=== PATIENT | male | born 1950 | race Caucasian/White ===

== ENCOUNTER 2018-08-16 16:32 | Inpatient (IN) | payer MEDICARE ==
[~2018-08-16] VITALS: Ht 172.7 cm; Wt 102.1 kg
--- NOTE | 2018-08-16 16:50 | NUR ---
PT BIB RA6, NEAR SYNCOPE FROM MD OFFICE. C/O WEAKNESS & RECTAL BLEEDING, PT IS AAOX4, NOT IN RESPIRAOTRY DISTRESS, KEPT RESTED AND [id number], WILL CONTINUE TO MONITOR.
--- NOTE | 2018-08-16 16:50 | NUR ---
LABS DRAWNED AND SENT TO LAB.
[2018-08-16] MEDS ORDERED: IV NS 0.9% 1,000 ML BAG IV ONE ×2 (17:00→18:30)
[2018-08-16 17:13] LABS: HEMATOCRIT 35 % (39-51); HEMOGLOBIN 10.5 g/dL (13.5-17.5); LYMPHOCYTES # (AUTO) 0.7 /CMM (0.8-4.8); MEAN CORPUSCULAR HGB CONC 30 g/dl (31.0-36.0); MEAN CORPUSCULAR VOLUME 80 fL (80-96); MONOCYTES # (AUTO) 0.5 /CMM (0.1-1.30); MONOCYTES % (AUTO) 1.3 % (2.0-12.0); NEUTROPHILS # (AUTO) 33.4 /CMM (1.8-8.9); NEUTROPHILS % (AUTO) 96.7 % (43.0-81.0); PLATELET COUNT (AUTO) 215 /CMM (150-450); RED BLOOD CELL COUNT(AUTO) 4.32 MIL/uL (4.5-6.0)
[2018-08-16 17:28] LABS: CALCIUM, SERUM 7.4 mg/dL (8.5-10.1); CARBON DIOXIDE 17 mmol/L (21-32); CHLORIDE 105 mmol/L (98-107); CREATININE 1.7 mg/dL (0.6-1.3); GLUCOSE 160 mg/dL (74-106); POTASSIUM 4.6 mmol/L (3.5-5.1); SODIUM SERUM 139 mmol/L (136-145); UREA NITROGEN, BLOOD 29 mg/dL (7-18)
[2018-08-16 17:34] LABS: ALANINE AMINOTRANSFERASE 22 U/L (12-78); ALKALINE PHOSPHATASE 123 U/L (46-116); ASPARTATE AMINOTRANSFERASE 28 U/L (15-37); BILIRUBIN,DIRECT 0.2 mg/dL (0.0-0.2); BILIRUBIN,TOTAL 0.5 mg/dL (0.2-1.0); TOTAL PROTEIN, SERUM 4.6 g/dL (6.4-8.2)
--- NOTE | 2018-08-16 17:36 | NUR ---
PT IS WHEELED TO CT SCAN VIA [facility].
[2018-08-16 17:38] LABS: ALBUMIN 0.9 g/dL (3.4-5.0)
[2018-08-16 17:48] LABS: WHITE BLOOD COUNT (AUTO) 34.6 K/uL (4.3-11.0)
[2018-08-16 17:58] LABS: ABG BASE EXCESS -9.2 mmol/L; ABG OXYGEN SATURATION 91.7 % (92.0-98.5); ABG PCO2 23.4 mmHg (35.0-45.0); ABG PH 7.399 (7.350-7.450); ABG PO2 70.4 mmHg (75.0-100.0); AaDO2 51.3 mmHg; COHb 0.9 % (0.5-1.5); MetHb 0.3 % (0.0-1.5); O2Hb 90.6 % (94.0-97.0); SITE, ABG Right Radial; VENT MODE, BG ROOM AIR
[2018-08-16] MEDS ORDERED: VANCOMYCIN 1 GM in IV D5W 250 ML IV ONE (18:00)
[2018-08-16] MEDS ORDERED: PIPERACILLIN /TAZOBACTAM 3.375 G in IV D5W 50 ML IV ONE (18:00)
--- NOTE | 2018-08-16 18:00 | NUR ---
CALLED PT'S ONCOLOGIST DR. ANGELES TO SPEAK TO ER DOC. DR. ANGELES -
--- NOTE | 2018-08-16 18:10 | NUR ---
PT IS BACK FORM THE CT SCAN.
[2018-08-16 18:22] LABS: BAND % (MANUAL) 65 % (0.0-5.0); LYMPHOCYTES % (MANUAL) 4 % (16-48); MONOCYTES % (MANUAL) 2 % (0-11.0); NEUTROPHILS % (MANUAL) 29 (42-76)
--- NOTE | 2018-08-16 19:19 | NUR ---
SURGERY MD AT BEDSIDE FOR EVAL.
[2018-08-16] MEDS ORDERED: ANESTHESIA TRAY IN PYXIS 1 EA TRAY MC ONE (19:57)
[2018-08-16] MEDS ORDERED: BUPIVACAINE MPF 0.5% W/EPI INJ 30 ML VIAL ONE (19:57)
[2018-08-16] MEDS ORDERED: LIDOCAINE HCL/PF 1% 30 ML SDV ONE (19:57)
[2018-08-16] MEDS ORDERED: VASOPRESSIN INJ 20 UNIT/ML VIAL ONE (20:03)
[2018-08-16] MEDS ORDERED: ROCURONIUM BROMIDE 50 MG/5 ML ONE (20:03)
[2018-08-16] MEDS ORDERED: PROPOFOL 100 ML ONE (20:05)
[2018-08-16] MEDS ORDERED: ALBUMIN 5% 500 ML IV ONE (20:05)
[2018-08-16] MEDS ORDERED: ALBUMIN 25% 50 ML IV ONE (20:05)
--- NOTE | 2018-08-16 20:10 | NUR ---
WHEELED PT TO THE OR BY OR TECH.
--- NOTE | 2018-08-16 20:23 | NUR ---
REPORT GIVEN TO DEAN LYONS FOR ARTURO.
[2018-08-16] MEDS ORDERED: NOREPINEPHRINE 8 MG in IV D5W 500 ML IV PRN (20:30)
--- NOTE | 2018-08-16 20:55 | NUR ---
REPORT GIVEN TO DEAN SPICER FOR ARTURO.
[2018-08-16 21:55] LABS: ABG BASE EXCESS -12.9 mmol/L; ABG PH 7.197 (7.350-7.450); ABG PO2 143.8 mmHg (75.0-100.0); AaDO2 532.2 mmHg; COHb 0.8 % (0.5-1.5); MetHb 0.3 % (0.0-1.5); O2Hb 94.9 % (94.0-97.0); PEEP,BG 5 cm H2O; SITE, ABG A-Line; VT, ABG 500 mL
--- NOTE | 2018-08-16 22:42 | NUR ---
RT NOTE PT RCVD ORALLY INTUBATED FROM OR. 7.0 ETT SECURED AT 19CM @ LIP ON MECHANICAL VENT WITH CHARTED SETTINGS FROM DR SARMIENTO. SX DONE. VENT PLUGGED INTO RED OUTLET. VENT ALARMS ARE SET AND AUDIBLE. ETT CUFF CHECKED VIA MARBLE WORKER. AMBU BAG AT BEDSIDE. WILL CONTINUE TO MONITOR.
[2018-08-16 22:44] VITALS: BP 85/50
--- NOTE | 2018-08-16 22:45 | NUR ---
TEST TUBE MAKER NOTE RECEIVED PT INTUBATED FROM OR WITH ANESTHESIOLOGIST AND RECOVERY NURSE AT BEDSIDE. WITH ORDERS TO GIVE STAT 2 UNITS PRBC AND CXR NOW.
[2018-08-16 23:07] VITALS: BP 81/26
[2018-08-16 23:09] VITALS: BP 81/26
[2018-08-16 23:12] LABS: BASOPHILS % (AUTO) 0.1 % (0.0-2.0); HEMATOCRIT 23 % (39-51); LYMPHOCYTES # (AUTO) 0.9 /CMM (0.8-4.8); LYMPHOCYTES % (AUTO) 3.5 % (20.0-44.0); MEAN CORPUSCULAR HGB CONC 31 g/dl (31.0-36.0); MEAN CORPUSCULAR VOLUME 79 fL (80-96); MONOCYTES # (AUTO) 0.4 /CMM (0.1-1.30); MONOCYTES % (AUTO) 1.6 % (2.0-12.0); NEUTROPHILS # (AUTO) 23.9 /CMM (1.8-8.9); NEUTROPHILS % (AUTO) 94.8 % (43.0-81.0); PLATELET COUNT (AUTO) 131 /CMM (150-450); RED BLOOD CELL COUNT(AUTO) 2.89 MIL/uL (4.5-6.0); WHITE BLOOD COUNT (AUTO) 25.2 K/uL (4.3-11.0)
[2018-08-16 23:25] VITALS: BP_SYST 86; BP_SYST 87; BP_DIAS 52; BP_DIAS 58
[2018-08-16 23:27] LABS: CREATININE 1.2 mg/dL (0.6-1.3); POTASSIUM 3.6 mmol/L (3.5-5.1)
[2018-08-16] MEDS ORDERED: METRONIDAZOLE 500MG/ NS 100ML 500 MG in PREMIX 1 EA IV SCH (23:30)
[2018-08-16 23:40] VITALS: BP 82/50
[2018-08-16] MEDS: IV 1/2NS 1000 ML 1,000 ML IV PRN (23:45)
--- NOTE | 2018-08-16 23:45 | NUR ---
IT SECURITY CONSULTANT NOTE RECEIVED REPORT FROM LEARNING OPERATIONS SPECIALIST PAT FOR CONTINUITY OF CARE. PT RECEIVED INTUBATED WITH ETT 7.5 AND 22CM @ THE LIP. SEDATED. MECH VENT SETTINGS WELL TOLERATED AND SATURATING 100%. NGT R NARE WITH POSITIVE PLACEMENT AND WITH ORDERS TO START LOW INTERMITTENT SUCTION. LEFT IJ TLC WITH LEVO @11MCG/MIN, DIP @ 30MCG/MIN. A-LINE IN PLACE, CLEAN AND DRY. CINTHIA DRAIN IN PLACE WITH SANGUINOUS OUTPUT. [address] AND CLEAN[address] SURGICAL ABDOMINAL DRESSING IN PLACE, CLEAN AND DRY. POLLOCK CATHETER IN PLACE AND DRAINING SMALL AMOUNT OF SONIA URINE WITH SEDIMENT BY GRAVITY. MARGARETH HUGGER IN PLACE. NOTIFIED OF PT STATUS AND DR WILL REVIEW CHART AND PUT ORDERS IN. WILL CONTINUE TO MONITOR.
--- NOTE | 2018-08-16 23:46 | NUR ---
RT NOTE ABG RESULTS RELAYED TO CHARGE NURSE ALFONZO AND DEAN SPICER.
[2018-08-16] MEDS: PANTOPRAZOLE 40 MG VIAL IV SCH (23:48)
[2018-08-16] MEDS ORDERED: METRONIDAZOLE 500MG/ NS 100ML 100 ML IV ONE (23:54)
[2018-08-17] VITALS (130 sets, daily range): BP systolic 77–110; BP diastolic 25–74
[2018-08-17] MEDS ORDERED: ONDANSETRON HCL/PF 4 MG/2 ML VIAL IVP PRN
[2018-08-17] MEDS ORDERED: ACETAMINOPHEN 325 MG TABLET PO PRN
[2018-08-17] MEDS ORDERED: NORMAL SALINE FLUSH 10 ML SYR IV PRN
[2018-08-17] MEDS ORDERED: NOREPINEPHRINE 8 MG in IV D5W 500 ML IV PRN ×3 (00:30)
[2018-08-17] MEDS ORDERED: NOREPINEPHRINE 4 MG/4 ML AMPUL IV ONE ×2 (02:36→06:20)
[2018-08-17] MEDS: NOREPINEPHRINE 8 MG in IV D5W 500 ML IV PRN ×6 (02:44→09:15)
[2018-08-17] MEDS: PROPOFOL 100 ML IV PRN ×3 (02:46→13:39)
[2018-08-17] MEDS: NORMAL SALINE FLUSH 10 ML SYR IV SCH ×3 (04:33→21:39)
[2018-08-17 05:00] LABS: BASOPHILS % (AUTO) 0.1 % (0.0-2.0); HEMATOCRIT 36 % (39-51); HEMOGLOBIN 11.4 g/dL (13.5-17.5); LYMPHOCYTES # (AUTO) 1.5 /CMM (0.8-4.8); LYMPHOCYTES % (AUTO) 3.8 % (20.0-44.0); MEAN CORPUSCULAR HGB CONC 31 g/dl (31.0-36.0); MEAN CORPUSCULAR VOLUME 84 fL (80-96); MONOCYTES # (AUTO) 0.5 /CMM (0.1-1.30); MONOCYTES % (AUTO) 1.3 % (2.0-12.0); NEUTROPHILS # (AUTO) 36.6 /CMM (1.8-8.9); NEUTROPHILS % (AUTO) 94.8 % (43.0-81.0); PLATELET COUNT (AUTO) 170 /CMM (150-450); RED BLOOD CELL COUNT(AUTO) 4.33 MIL/uL (4.5-6.0)
[2018-08-17 05:11] LABS: CALCIUM, SERUM 6.3 mg/dL (8.5-10.1); CREATININE 1.2 mg/dL (0.6-1.3); POTASSIUM 4.2 mmol/L (3.5-5.1)
[2018-08-17 05:25] LABS: WHITE BLOOD COUNT (AUTO) 38.6 K/uL (4.3-11.0)
[2018-08-17] MEDS ORDERED: PHENYLEPHRINE 10 MG/ML VIAL ONE (05:32)
--- NOTE | 2018-08-17 05:50 | NUR ---
POTTERY DECORATION DESIGNER NOTE PT BP STILL LOW WITH LEVO. DR. WILLS ORDERED EVITA SECOND PRESSOR TO KEEP SBP ABOVE 90. ORDERS NOTED AND CARRIED OUT.
[2018-08-17 05:53] LABS: BAND % (MANUAL) 24 % (0.0-5.0); LYMPHOCYTES % (MANUAL) 2 % (16-48); NEUTROPHILS % (MANUAL) 74 (42-76)
--- NOTE | 2018-08-17 06:00 | NUR ---
MUSIC AUTOGRAPHER NOTE UNABLE TO ADMINISTER ANCEF 1GRAM IV D/T NO SUPPLY OF MEDICATION THROUGHOUT THE HOSPITAL. NURSE INDUSTRIAL PRODUCTION MANAGER AWARE AND SAID TO WAIT FOR PHARMACY TO DISPENSE.
[2018-08-17 06:04] LABS: ABG OXYGEN SATURATION 92.9 % (92.0-98.5); ABG PH 7.123 (7.350-7.450); ABG PO2 81.9 mmHg (75.0-100.0); AaDO2 577.1 mmHg; COHb 1.5 % (0.5-1.5); MetHb 0.2 % (0.0-1.5); O2Hb 91.3 % (94.0-97.0); PEEP,BG 5 cm H2O; SITE, ABG A-Line; VT, ABG 500 mL
[2018-08-17] MEDS: PHENYLEPHRINE 80 MG in IV D5W 250 ML IV PRN ×4 (06:31→20:50)
[2018-08-17] MEDS: BLOOD SUGAR DIAGNOSTIC 1 EACH STRIP IN SCH ×4 (06:32→23:29)
--- NOTE | 2018-08-17 07:25 | NUR ---
RT PATIENT REC'D ORALLY INTUBATED ON [facility] VENT WITH ORDERED SETTINGS. VENT ALARMS CHECKED + AUDIBLE. CUFF PRESSURE CHECKED ENGRAVER STEEL PLATE . B/S DIM COARSE. PATIENT SUCTIONED WITH SMALL AMT OF PALE SEMI-THICK SECRETIONS. PATIENT NON RESPONSIVE IN CRITICAL CONDITION. AMBU BAG AT [facility]. Addendum: 08/17/18 at 1308 by CHARU ZAMBRANO RT Amended: Links added.
[2018-08-17] MEDS: INSULIN REGULAR, HUMAN 100 UNIT/ML 3 ML VIAL SQ PRN (07:44)
--- NOTE | 2018-08-17 08:00 | NUR ---
PATIENT AROUSABLE TO TOUCH AND NAME WHEN PROPOFOL TITRATED DOWN TO 5MCG/MIN/KG ORIENTED TO ENVIRONMENT, SITUATION, AND PLACE.
[2018-08-17 08:30] LABS: ABG BASE EXCESS -12.8 mmol/L; ABG OXYGEN SATURATION 94.7 % (92.0-98.5); ABG PCO2 53.7 mmHg (35.0-45.0); ABG PH 7.106 (7.350-7.450); AaDO2 565.3 mmHg; COHb 1.1 % (0.5-1.5); MetHb 0.1 % (0.0-1.5); O2Hb 93.6 % (94.0-97.0); SITE, ABG A-Line
--- NOTE | 2018-08-17 08:30 | NUR ---
BAFFLE MOUNTER NOTE NO ACUTE DISTRESS NOTED ON VENTILATOR. PT REMAINS SEDATED AND INTUBATED. ALL NEEDS ATTENDED TO PROMPTLY. KEPT CLEAN AND DRY. SUCTIONED NEEDED. LEVO @ 40MCG/MIN AND EVITA @ 40MCG/MIN, 1/2NS @ 150ML/HR, DIP @ 10MCG/MIN. WILL ENDORSE TO NEXT SHIFT FOR CONTINUITY OF CARE.
[2018-08-17] MEDS: IV 1/2NS 1000 ML 1,000 ML IV PRN ×2 (08:31→16:26)
[2018-08-17] MEDS: CEFAZOLIN 1 GM in IV D5W 50 ML IV SCH ×3 (08:33→21:38)
[2018-08-17] MEDS ORDERED: PANTOPRAZOLE 40 MG VIAL IV SCH (09:00)
--- NOTE | 2018-08-17 09:55 | NUR ---
WOUND CARE CONSULT WOUND CARE RECEIVED CONSULT FOR LOW RISHI SCORE OF 12. PER WOOL MERCHANT, PATIENT NOT STABLE FOR TURNING OR REPOSITIONING FOR SKIN ASSESSMENT AT THIS TIME. PATIENT ON 2 PRESSORS FOR BP SUPPORT. ALL PRESSURE ULCER PREVENTION MEASURES NOTED TO BE IN PLACE AT THIS TIME. WILL SEE PATIENT PATIENT CONDITION PERMITS.
[2018-08-17] MEDS: METRONIDAZOLE 500MG/ NS 100ML 500 MG in PREMIX 1 EA IV SCH ×3 (09:57→21:38)
--- NOTE | 2018-08-17 10:27 | NUR ---
DR MORENO NOTIFIED OF CVP VALUE OF 5. PER DR MORENO, IV NS 500 BOLUS ONCE AND CONTINUE AT CURRENT RATE ACUTE MEDICAL RESTRAINTS, SOFT BILATERAL WRISTS PATIENT TRYING TO REMOVE TUBES PER DR MORENO REPEAT ABG 2 HOURS AFTER TV ADJUSTMENT VERBAL READBACK DONE
[2018-08-17] MEDS ORDERED: IV NS 0.9% 1,000 ML BAG IV ONE (10:30)
[2018-08-17 10:42] LABS: ABG BASE EXCESS -11.9 mmol/L; ABG OXYGEN SATURATION 96.3 % (92.0-98.5); ABG PCO2 42.7 mmHg (35.0-45.0); ABG PH 7.186 (7.350-7.450); ABG PO2 104.7 mmHg (75.0-100.0); AaDO2 565.6 mmHg; COHb 0.7 % (0.5-1.5); O2Hb 95.6 % (94.0-97.0); SITE, ABG A-Line
--- NOTE | 2018-08-17 10:53 | NUR ---
RT PER DR MORENO VT INCREASED TO 650. Addendum: 08/17/18 at 1054 by CHARU ZAMBRANO RT Amended: Links added.
--- NOTE | 2018-08-17 10:53 | NUR ---
DR MORENO NOTIFIED OF ABG RESULTS PER DR MORENO, TV TO 650 ABG AT 1300
[2018-08-17] MEDS: Z GUARD REMEDY 2 OZ OINT TP SCH (11:12)
--- NOTE | 2018-08-17 11:21 | NUR ---
iv 0.45 NS bolus of 500 ml per Md orders
[2018-08-17] MEDS ORDERED: IV 1/2NS 1000 ML 1,000 ML IV ONE (11:30)
--- NOTE | 2018-08-17 11:42 | NUR ---
unable to turn and reposition patient due to hemodynamic instability
[2018-08-17] MEDS ORDERED: IV 1/2NS 1000 ML 500 ML IV PRN (12:00)
[2018-08-17] MEDS ORDERED: IV NS 0.45% 500 ML IV ONE (12:00)
[2018-08-17] MEDS: NOREPINEPHRINE 16 MG in IV D5W 500 ML IV PRN ×2 (12:15→17:45)
--- NOTE | 2018-08-17 12:22 | NUR ---
urine output monitored Dr Carson notified of output values
[2018-08-17 13:44] LABS: ABG BASE EXCESS -10.9 mmol/L; ABG OXYGEN SATURATION 95.8 % (92.0-98.5); ABG PCO2 34.3 mmHg (35.0-45.0); ABG PH 7.263 (7.350-7.450); ABG PO2 91.5 mmHg (75.0-100.0); AaDO2 442.9 mmHg; MetHb 0.4 % (0.0-1.5); O2Hb 94.5 % (94.0-97.0); SITE, ABG A-Line
[2018-08-17] MEDS ORDERED: VASOPRESSIN INJ 50 UNIT in IV D5W 497.5 ML IV PRN (14:00)
--- NOTE | 2018-08-17 14:04 | NUR ---
DR MORENO NOTIFIED OF RECENT ABG PER HIS ORDERS, CONTINUE TO MONITOR PATIENT VASOPRESSIN PER PROTOCOL IF NEEDED VERBAL READBACK DONE
--- NOTE | 2018-08-17 15:01 | NUR ---
FLUSHES ADMINISTERED UNABLE TO SCAN
--- NOTE | 2018-08-17 19:30 | NUR ---
ENDORSED TO ELINOR MORAN
--- NOTE | 2018-08-17 19:49 | NUR ---
SOAP PRESS FEEDER. INITIAL ASSESSMENT. RECEIVED THE PT REST ON THE BED. ORALLY INTUBATED. SEDATED WITH DIPRIVAN. ETT 7.5CM,LIP 22, AC 20,TV 650,FIO2 80%, PEEP 5. SAT 98%. RETAINING ROOM CUTTER SHOWING S TACH. IV LT IJ TRIPLE LUMEN, RT FA,18G,RT AC 20G. LEVOPHED 40MCG/MIN, EVITA 300MCG/MIN.DIPRIVAN 5MCG/KG/MIN,IVF 1/2NS 150ML/H. RT NARE NGT INTACT LOW INTERMITTENT SUCTION.RT FEMORAL A LINE,RT CINTHIA INTACT. 2 COLOSTOMY BAG INTACT. HOB ELEVATED. NPO. VIC SOFT WRIST RESTRAINT CHECKED AND RELEASED. NO INJURY OR REDNESS NOTED. FC PATENT. ABDOMINAL DRESSING INTACT. AFEBRILE WILL CONTINUE TO MONITOR VITALS. PT IS VERY UNSTABLE.
--- NOTE | 2018-08-17 20:38 | NUR ---
RECEIVED PT INTUBATED 7.0 ETT SECURED AT 19CM AT THE LIP, BITE BLOCK IN PLACE. NO RESP DISTRESS. PT TOLERATING VENT SETTINGS. SX'D FOR SML AMT OF THICK PALE SECRETIONS. VENT ALARMS SET AND AUDIBLE. AMBU BAG AT BEDSIDE. ETT SECURE, CUFF BUCKLE SEWER. WILL CONTINUE TO MONITOR. Addendum: 08/17/18 at 2043 by JENNY GARRETT RT RECEIVED PT INTUBATED 7.5 ETT SECURED AT 22CM AT THE LIP. NO RESP DISTRESS. PT TOLERATING VENT SETTINGS. VENT ALARMS SET AND AUDIBLE. AMBU BAG AT BEDSIDE. ETT SECURE, CUFF BUCKLE SEWER. WILL CONTINUE TO MONITOR.
--- NOTE | 2018-08-17 21:39 | NUR ---
SKIN CARE SPECIALIST. PT CVP AND A LINE 0 LEVELED AND CALIBRATED.
[2018-08-17] MEDS: PANTOPRAZOLE 40 MG VIAL IV SCH (22:52)
[2018-08-18] VITALS (91 sets, daily range): BP systolic 88–139; BP diastolic 27–73
[2018-08-18] MEDS: NOREPINEPHRINE 16 MG in IV D5W 500 ML IV PRN ×4 (00:21→21:05)
[2018-08-18] MEDS: PHENYLEPHRINE 80 MG in IV D5W 250 ML IV PRN ×3 (01:10→09:53)
[2018-08-18] MEDS: IV 1/2NS 1000 ML 1,000 ML IV PRN ×2 (02:01→09:58)
--- NOTE | 2018-08-18 03:06 | NUR ---
LAND RECLAMATION SPECIALIST. AM CARE, ORAL CARE, BED BATH GIVEN. LINEN CHANGED. REMAINING SAME VENT SETTINGS ON. CARDIAC MOPNITOR SHOWING NSR. IV LT SUCLAVIAN. IGVF 1/2NS 150ML/H,LEVOPHED 40MCG/MIN,EVITA 300MCG/MIN, DIPRIVAN 5MCG/KG/MIN. HOB ELEVATED. NGT LOW INTERMITTENT SUCTION FC PATENT. NO URINE. HOB ELEVATED. CVP 5, A LINE BLOOD PRESSURE 102/45. PT IS UNSTABLE. WILL CONTINUE TO MONITOR VITALS.
[2018-08-18] MEDS: PROPOFOL 100 ML IV PRN ×2 (04:51→16:28)
[2018-08-18] MEDS: CEFAZOLIN 1 GM in IV D5W 50 ML IV SCH ×3 (04:51→20:28)
[2018-08-18] MEDS: NORMAL SALINE FLUSH 10 ML SYR IV SCH ×3 (05:06→20:44)
[2018-08-18 05:26] LABS: CREATININE 2.1 mg/dL (0.6-1.3); MAGNESIUM 1.5 mg/dL (1.8-2.4); POTASSIUM 4.5 mmol/L (3.5-5.1)
[2018-08-18] MEDS: METRONIDAZOLE 500MG/ NS 100ML 500 MG in PREMIX 1 EA IV SCH ×3 (05:26→21:01)
[2018-08-18 05:55] LABS: CALCIUM, SERUM 5.8 mg/dL (8.5-10.1)
[2018-08-18] MEDS: BLOOD SUGAR DIAGNOSTIC 1 EACH STRIP IN SCH ×3 (06:19→17:00)
--- NOTE | 2018-08-18 06:26 | NUR ---
OYSTER FLOATER. PLATELETS 44. RE DRAW THE BLOOD. WAITING FOR RESULT
--- NOTE | 2018-08-18 06:29 | NUR ---
SERVICE COUNTER CASHIER. COLOSTOMY DRAING IS 50ML . SEROSANGUNEOUS
[2018-08-18 06:32] LABS: BASOPHILS % (AUTO) 0.1 % (0.0-2.0); HEMATOCRIT 33 % (39-51); HEMOGLOBIN 10.6 g/dL (13.5-17.5); LYMPHOCYTES # (AUTO) 0.7 /CMM (0.8-4.8); LYMPHOCYTES % (AUTO) 2.6 % (20.0-44.0); MEAN CORPUSCULAR HGB CONC 32 g/dl (31.0-36.0); MEAN CORPUSCULAR VOLUME 83 fL (80-96); MONOCYTES # (AUTO) 0.4 /CMM (0.1-1.30); MONOCYTES % (AUTO) 1.6 % (2.0-12.0); NEUTROPHILS # (AUTO) 26.1 /CMM (1.8-8.9); NEUTROPHILS % (AUTO) 95.7 % (43.0-81.0); RED BLOOD CELL COUNT(AUTO) 4.01 MIL/uL (4.5-6.0); WHITE BLOOD COUNT (AUTO) 27.2 K/uL (4.3-11.0)
[2018-08-18 07:13] LABS: PLATELET COUNT (AUTO) 42 /CMM (150-450)
--- NOTE | 2018-08-18 07:41 | NUR ---
RECEIVED REPORT ON PATIENT FROM RN JORGE. PATIENT NOTED TO BE MAXED OUT ON LEVO AND EVITA PRESSORS WITH CONTINUOUS A LINE BP MONITORING IN PLACE. PATIENT NOTED WITH CVP OF 6. AFEBRILE. NSR TELE. PATIENT IS INTUBATED 7.01/18 WITH VENT SETTINGS ORDERED AND TOLERATING WELL. PATIENT IS SEDATED ON DIPRIVAN PER SPREADSHEET AWAKE TO LIGHT TOUCH. PATIENT IV SITES C/D/I/P AND GOOD BLOOD RETURN NOTED. MESSAGE LEFT WITH DR CARIN STEVEN IN RE TO PATIENT AM LABS; PLATELETS 42 (AFTER PERIPHERAL REDRAW) AND CALCIUM 5.8. PATIENT WITH RIGHT NARE NG TUBE TO LIS WITH GREEN OUTPUT; PER RN 100ML OUTPUT LAST NIGHT. PATIENT WITH X2 COLOSTOMY WITH TOP COLOSTOMY WITH 50ML SEROSANGUINEOUS DRAINAGE LAST NIGHT AND SECOND COLOSTOMY MINIMAL UNDER 10ML OUTPUT. PATIENT WITH POLLOCK CATH TO GRAVITY PER RN PATIENT ANURIC. CINTHIA DRAIN NOTED TO RIGHT MID ABDOMEN WITH STICHES IN PLACE NO S/S INFECTION; PER RN AROUND 350 ML CLEAR/RED/SEROSANGUINEOUS DRAINAGE LAST NIGHT. PATIENT GENERALIZED PITTING EDEMA AND WEEPING TO BUE. PER RN UNABLE TO TURN PATIENT LAST NIGHT PATIENT IS VERY UNSTABLE. PENDING ABD FLUID CULTURES. PATIENT NOTED DPOA DIONTE . SAFETY, SKIN 9AS TOLERATED BY VS), ASPIRATION PRECAUTIONS IN PLACE AND WILL MONITOR
--- NOTE | 2018-08-18 08:13 | NUR ---
ANOTHER MESSAGE TO CARIN STEVEN FOR AM LAB RESULTS. SPOKE WITH DR HORNE AND AWARE OF CONSULT.
--- NOTE | 2018-08-18 08:20 | NUR ---
SPOKE WITH DR CARIN STEVEN. PLEASE REDRAW CBC WITH BLUE TOP. SPOKE WITH LAB AND THEY WILL COMPLETE. NO ORDERS FOR CALCIUM.
[2018-08-18 08:49] LABS: LYMPHOCYTES % (MANUAL) 3 % (16-48); MONOCYTES % (MANUAL) 4 % (0-11.0); NEUTROPHILS % (MANUAL) 93 (42-76)
--- NOTE | 2018-08-18 09:15 | NUR ---
SEDATION VACATION. PATIENT AWAKE TO NAME. FOLLOWING COMMANDS. SQUEEZES HANDS, OPENS/BLINKS. ATTEMPTING TO NOD HEAD Y/N TO QUESTIONS ASKED OF HIM. PATIENT DENIES PAIN. REORIENTED PATIENT. WILL RESUME SEDATION FOR COMFORT
[2018-08-18] MEDS: Z GUARD REMEDY 2 OZ OINT TP SCH (09:18)
--- NOTE | 2018-08-18 09:26 | NUR ---
DR MORENO AT BEDSIDE UPDATED ON PATIENT CONDITION. PENDING AM ABG
[2018-08-18 09:33] LABS: BASOPHILS # (AUTO) 0.1 /CMM (0.0-0.2); BASOPHILS % (AUTO) 0.2 % (0.0-2.0); HEMATOCRIT 31 % (39-51); HEMOGLOBIN 9.9 g/dL (13.5-17.5); LYMPHOCYTES # (AUTO) 0.6 /CMM (0.8-4.8); LYMPHOCYTES % (AUTO) 2.1 % (20.0-44.0); MEAN CORPUSCULAR HGB CONC 32 g/dl (31.0-36.0); MEAN CORPUSCULAR VOLUME 83 fL (80-96); MONOCYTES # (AUTO) 0.3 /CMM (0.1-1.30); MONOCYTES % (AUTO) 0.9 % (2.0-12.0); NEUTROPHILS # (AUTO) 27.2 /CMM (1.8-8.9); NEUTROPHILS % (AUTO) 96.8 % (43.0-81.0); RED BLOOD CELL COUNT(AUTO) 3.79 MIL/uL (4.5-6.0); WHITE BLOOD COUNT (AUTO) 28.1 K/uL (4.3-11.0)
[2018-08-18 09:43] LABS: PLATELET COUNT (AUTO) 47 /CMM (150-450)
--- NOTE | 2018-08-18 09:45 | NUR ---
NOTIFIED DR CARIN STEVEN OF PATIENT UPDATED PLATELET COUNT 47. PER MD OBTAIN NEW FIBRINOGEN LEVEL. MD SHOWN CINTHIA DRAINAGE. CLEAR AND PINK TINGED. NO CHANGE. OUTPUT AROUND 50-100ML/HOUR
[2018-08-18 10:05] LABS: ABG BASE EXCESS -13.5 mmol/L; ABG PCO2 31.3 mmHg (35.0-45.0); ABG PH 7.227 (7.350-7.450); ABG PO2 238.5 mmHg (75.0-100.0); SITE, ABG Right Radial; VENT MODE, BG ac 20 +5 600 80%
--- NOTE | 2018-08-18 10:10 | NUR ---
DR HORNE AT BEDSIDE. UPDATED ON PATIENT CONDITION. VS.
[2018-08-18 10:33] LABS: BAND % (MANUAL) 3 % (0.0-5.0); LYMPHOCYTES % (MANUAL) 4 % (16-48); MONOCYTES % (MANUAL) 2 % (0-11.0); NEUTROPHILS % (MANUAL) 91 (42-76)
--- NOTE | 2018-08-18 10:58 | NUR ---
DR SARMIENTO AT BEDSIDE. UPDATED ON PATIENT CONDITION. AWARE CINTHIA DRAIN OUTPUT AROUND 50-100ML/HOUR. NO CHANGE IN COLOR. PER M #1 COLOSTOMY IS AN ACUTAL COLOSTOMY AND WILL EVENTUALLY START PRODUCING STOOL. AND COLOSTOMY #2 IS A DRAINAGE SYSTEM PATIENT HAS AN OBSTRUCTING MASS IN LOWER GI TRACT SO WILL HAVE MINIMAL TO NO MUCOUS OUTPUT WE HAVE SEEN.
[2018-08-18] MEDS ORDERED: Calcium Gluconate 1GM/10ML 9.3 MEQ in IV NS 0.9% 250 ML IV SCH (12:00)
[2018-08-18] MEDS: IV D5/ 0.9% NACL 1,000 ML IV PRN (12:02)
[2018-08-18] MEDS: HYDROCORTISONE SOD SUCCINATE 100 MG/2 ML VIAL IV SCH ×2 (12:05→16:27)
[2018-08-18] MEDS ORDERED: Magnesium 1GM/D5W 100ML PREMIX 100 ML IV SCH (12:30)
[2018-08-18] MEDS: INSULIN REGULAR, HUMAN 100 UNIT/ML 3 ML VIAL SQ PRN ×2 (12:54→17:12)
--- NOTE | 2018-08-18 14:36 | NUR ---
followed up with pharmacy for calcium gluc. order
--- NOTE | 2018-08-18 16:08 | NUR ---
spoke with [facility] to f/u on ca gluco. order
[2018-08-18] MEDS: Calcium Gluconate 1GM/10ML 9.3 MEQ in IV NS 0.9% 250 ML IV SCH ×3 (16:24→20:44)
[2018-08-18] MEDS: ALBUMIN 25% 25 GM in PREMIX 1 EA IV SCH (16:59)
[2018-08-18] MEDS: Z GUARD REMEDY 2 OZ OINT TP PRN (17:13)
--- NOTE | 2018-08-18 19:24 | NUR ---
ALL DUE MEDS GIVEN AND ALL NEEDS MET. PATIENT SUCCESSFULLY TITRATED OFF EVITA AND CURRENTLY ON 28 OF LEVO. TOLERATING VENT SETTINGS THROUGHOUT DAY. PATIENT SEDATED ON DIPRIVAN PER SPREADSHEET AND AWAKE TO LIGHT PAIN. IV SITES C/D/I/P S/P DRESSING CHANGES PATIENT IS WEEPING ON BUE. POLLOCK CATH IN PLACE AND DRAINING TO GRAVITY. CINTHIA DRAIN WITH 850ML OUTPUT TODAY. COLOSTOMY CONTINUES WITH SEROUS DRAINAGE; DR SARMIENTO AWARE AND VISUALIZED. SAFETY, ASPIRATION, AND SKIN PRECAUTIONS IN PLACE THROUGHOUT DAY. CARE ENDORSED TO DEAN SPICER FOR ARTURO
--- NOTE | 2018-08-18 19:30 | NUR ---
WHARF HAND NOTE PT RECEIVED INTUBATED AND SEDATED. ON MECH VENT WITH SETTINGS WELL TOLERATED AND SATURATING WELL. BREATHING UNLABORED. HOB ELEVATED AND ON ASPIRATION PRECAUTIONS. LIJ TLC CLEAN AND INFUSING DIP @ 15MCG/MIN, LEVO @ 28MCG/MIN AND CVP MONITORING. RFA #18 WITH FLUIDS INFUSING. RIGHT FEMORAL ARTERIAL LINE CLEAN, DRY AND PATENT. CINTHIA DRAIN SUTURED IN PLACE WITH SEROUS OUTPUT NOTED. [address] AND DRAINING. LEFT NARE NG TUBE IN PLACE AND CONNECTED TO LOW INTERMITTENT SUCTION WITH DARK GREEN DRAINAGE NOTED. POLLOCK CATHETER IN PLACE AND DRAINING BY GRAVITY. WILL CONTINUE TO MONITOR.
--- NOTE | 2018-08-18 19:35 | NUR ---
Received pt on vent support, pt is stable on noted settings, alarms are on and audible, ventilator is plugged into red outlet, ambu bag at bedside. Will continue monitoring patient. Addendum: 08/18/18 at 1938 by HOLLIE BALDERAS RT Amended: Links added.
[2018-08-18] MEDS: PANTOPRAZOLE 40 MG VIAL IV SCH (22:12)
[2018-08-19] VITALS (81 sets, daily range): BP systolic 87–134; BP diastolic 46–78
[2018-08-19] MEDS: BLOOD SUGAR DIAGNOSTIC 1 EACH STRIP IN SCH ×5 (00:05→23:27)
[2018-08-19] MEDS: ALBUMIN 25% 25 GM in PREMIX 1 EA IV SCH (00:05)
[2018-08-19] MEDS: INSULIN REGULAR, HUMAN 100 UNIT/ML 3 ML VIAL SQ PRN ×3 (00:12→23:37)
[2018-08-19] MEDS: IV D5/ 0.9% NACL 1,000 ML IV PRN (01:00)
[2018-08-19] MEDS: CEFAZOLIN 1 GM in IV D5W 50 ML IV SCH ×3 (04:07→20:46)
[2018-08-19] MEDS: NORMAL SALINE FLUSH 10 ML SYR IV SCH (04:08)
[2018-08-19] MEDS: PROPOFOL 100 ML IV PRN ×3 (04:08→23:27)
[2018-08-19] MEDS: METRONIDAZOLE 500MG/ NS 100ML 500 MG in PREMIX 1 EA IV SCH ×3 (04:47→21:20)
[2018-08-19 04:55] LABS: BASOPHILS # (AUTO) 0.1 /CMM (0.0-0.2); BASOPHILS % (AUTO) 0.2 % (0.0-2.0); HEMATOCRIT 25 % (39-51); HEMOGLOBIN 8.1 g/dL (13.5-17.5); LYMPHOCYTES # (AUTO) 0.4 /CMM (0.8-4.8); LYMPHOCYTES % (AUTO) 1.6 % (20.0-44.0); MEAN CORPUSCULAR HGB CONC 32 g/dl (31.0-36.0); MEAN CORPUSCULAR VOLUME 83 fL (80-96); MONOCYTES # (AUTO) 0.4 /CMM (0.1-1.30); MONOCYTES % (AUTO) 1.7 % (2.0-12.0); NEUTROPHILS # (AUTO) 23.5 /CMM (1.8-8.9); NEUTROPHILS % (AUTO) 96.5 % (43.0-81.0); RED BLOOD CELL COUNT(AUTO) 3.07 MIL/uL (4.5-6.0); WHITE BLOOD COUNT (AUTO) 24.4 K/uL (4.3-11.0)
[2018-08-19 05:11] LABS: CALCIUM, SERUM 6.3 mg/dL (8.5-10.1); CREATININE 2.5 mg/dL (0.6-1.3); MAGNESIUM 1.5 mg/dL (1.8-2.4); PHOSPHORUS 6.6 mg/dL (2.5-4.9); POTASSIUM 4.2 mmol/L (3.5-5.1)
[2018-08-19 05:24] LABS: PLATELET COUNT (AUTO) 27 /CMM (150-450)
[2018-08-19 05:44] LABS: D-DIMER 10.24 mg/L(FEU (0.17-0.50)
[2018-08-19 06:08] LABS: BAND % (MANUAL) 5 % (0.0-5.0); LYMPHOCYTES % (MANUAL) 1 % (16-48); NEUTROPHILS % (MANUAL) 94 (42-76)
[2018-08-19] MEDS: Magnesium 1GM/D5W 100ML PREMIX 100 ML IV SCH ×2 (06:27→08:05)
--- NOTE | 2018-08-19 07:43 | NUR ---
STAFF RADIATION THERAPIST NOTE PT REMAINED STABLE DURING SHIFT. NO ACUTE DISTRESS NOTED. VENT SETTINGS WELL TOLERATED. SUCTIONED NEEDED. REPOSITIONED Q2H. KEPT CLEAN AND DRY. ALL NEEDS ATTENDED TO PROMPTLY. CINTHIA DRAIN IN PLACE. A-LINE, LIJ AND CVP MONITORING MAINTAINED. WILL ENDORSE TO NEXT SHIFT FOR CONTINUITY OF CARE.
[2018-08-19] MEDS: NOREPINEPHRINE 16 MG in IV D5W 500 ML IV PRN (08:03)
[2018-08-19] MEDS: Z GUARD REMEDY 2 OZ OINT TP SCH (08:05)
--- NOTE | 2018-08-19 08:08 | NUR ---
RT PT RECEIVED ORALLY INTUBATED WITH A 7.0 ETT SECURED AT 22CM AT THE LIP LINE. PT IS CURRENTLY SEDATED AT THIS TIME BUT RESPONDS TO STIMULI WHEN SX'D. VENT ALARMS ARE SET AND AUDIBLE WITH BVM BY BEDSIDE. DECAL APPLIER CUFF PRESSURE NOTED. VENT IS PLUGGED INTO RED OUTLET. SX'D SMALL CLEAR/WHITE SECRETIONS. NO RESPIRATORY DISTRESS NOTED AT THIS TIME, WILL CONTINUE TO MONITOR. Addendum: 08/19/18 at 1739 by FEDERICO MUNGUIA RT Amended: Links added. Addendum: 08/19/18 at 1750 by FEDERICO MUNGUIA RT CORRECT ETT SIZE IS 7.5
[2018-08-19 08:47] LABS: ABG BASE EXCESS -15.1 mmol/L; ABG OXYGEN SATURATION 97.9 % (92.0-98.5); ABG PCO2 27.1 mmHg (35.0-45.0); ABG PH 7.228 (7.350-7.450); ABG PO2 172.7 mmHg (75.0-100.0); AaDO2 153.3 mmHg; COHb 0.8 % (0.5-1.5); MetHb 0.4 % (0.0-1.5); O2Hb 96.7 % (94.0-97.0); PEEP,BG 5 cm H2O; SITE, ABG A-Line; VT, ABG 650 mL
--- NOTE | 2018-08-19 09:15 | NUR ---
ICU/RN: Dr Yamileth valdovinos, updated on pt status. ABG reviewed. Will cont to monitor pt.
[2018-08-19] MEDS ORDERED: Magnesium 1GM/D5W 100ML PREMIX 100 ML IV SCH ×2 (09:52→11:00)
--- NOTE | 2018-08-19 10:50 | NUR ---
ICU/RN: Discussed POC and abn labs with Dr Ruiz. Per MD infuse total of 4 grams of IV Mag replacement only; keep pt NPO. Per MD "pt will need TPN soon."
[2018-08-19] MEDS ORDERED: CALCIUM CARBONATE 500 MG TAB.CHEW PO SCH (11:00)
[2018-08-19] MEDS ORDERED: Magnesium 1GM/D5W 100ML PREMIX 1 G in PREMIX 1 EA IV SCH (11:00)
--- NOTE | 2018-08-19 14:00 | NUR ---
ICU/RN: Dr Robledo at bedside; updated on pt status; discussed POC with next of kinCarol.
--- NOTE | 2018-08-19 15:45 | NUR ---
ICU/RN: Bed bath, wound care rendered. Pt with generalized weeping edema requiring frequent dressing changes and hygienic care. Noted with large amount of mucoid output from rectum. Colostomy bag changed with 50cc out. R lat abd CINTHIA drain requires frequent drainage, output avg 90cc/hr. R femoral A-line drsg requiring frequent changes dt skin weeping around site. Scrotum elevated dt swelling. Bilat heels offloaded. Will cont to monitor pt.
[2018-08-19] MEDS: Sodium Acetate 150 MEQ in IV D5W 1,000 ML IV PRN (16:32)
--- NOTE | 2018-08-19 19:30 | NUR ---
CARDIOPULMONARY TECHNICIAN AND EEG TECH NOTE PT RECEIVED INTUBATED AND SEDATED. ON MECH VENT WITH SETTINGS WELL TOLERATED AND SATURATING WELL. BREATHING UNLABORED. HOB ELEVATED AND ON ASPIRATION PRECAUTIONS. LIJ TLC CLEAN AND INFUSING DIP @ 15MCG/MIN, LEVO @ 10MCG/MIN AND CVP MONITORING. RIGHT FEMORAL ARTERIAL LINE CLEAN, DRY AND PATENT. CINTHIA DRAIN SUTURED IN PLACE WITH SEROUS OUTPUT NOTED. [address] AND DRAINING. LEFT NARE NG TUBE IN PLACE AND CONNECTED TO LOW INTERMITTENT SUCTION WITH SCANT DARK GREEN DRAINAGE NOTED. POLLOCK CATHETER IN PLACE AND DRAINING BY GRAVITY. WILL CONTINUE TO MONITOR.
[2018-08-19] MEDS: PANTOPRAZOLE 40 MG VIAL IV SCH (23:01)
[2018-08-20] VITALS (110 sets, daily range): BP systolic 83–129; BP diastolic 50–95
[2018-08-20] MEDS: Sodium Acetate 150 MEQ in IV D5W 1,000 ML IV PRN ×3 (01:15→21:05)
[2018-08-20] MEDS: CEFAZOLIN 1 GM in IV D5W 50 ML IV SCH ×3 (04:15→21:05)
[2018-08-20] MEDS: METRONIDAZOLE 500MG/ NS 100ML 500 MG in PREMIX 1 EA IV SCH ×3 (04:59→21:35)
[2018-08-20 05:35] LABS: CALCIUM, SERUM 6.1 mg/dL (8.5-10.1); CREATININE 2.9 mg/dL (0.6-1.3); MAGNESIUM 2.1 mg/dL (1.8-2.4); PHOSPHORUS 5.9 mg/dL (2.5-4.9); POTASSIUM 3.6 mmol/L (3.5-5.1)
[2018-08-20 05:39] LABS: BASOPHILS % (AUTO) 0.1 % (0.0-2.0); HEMATOCRIT 25 % (39-51); HEMOGLOBIN 8.1 g/dL (13.5-17.5); LYMPHOCYTES # (AUTO) 0.4 /CMM (0.8-4.8); LYMPHOCYTES % (AUTO) 1.7 % (20.0-44.0); MEAN CORPUSCULAR HGB CONC 32 g/dl (31.0-36.0); MEAN CORPUSCULAR VOLUME 81 fL (80-96); MONOCYTES # (AUTO) 0.4 /CMM (0.1-1.30); MONOCYTES % (AUTO) 1.6 % (2.0-12.0); NEUTROPHILS # (AUTO) 22.1 /CMM (1.8-8.9); NEUTROPHILS % (AUTO) 96.6 % (43.0-81.0); RED BLOOD CELL COUNT(AUTO) 3.08 MIL/uL (4.5-6.0); WHITE BLOOD COUNT (AUTO) 22.9 K/uL (4.3-11.0)
[2018-08-20 05:41] LABS: PLATELET COUNT (AUTO) 17 /CMM (150-450)
--- NOTE | 2018-08-20 06:13 | NUR ---
PT RECEIVED ORALLY INTUBATED WITH A 7.0 ETT SECURED AT 22CM AT THE LIP LINE. PT IS CURRENTLY SEDATED AT THIS TIME BUT RESPONDS TO STIMULI WHEN SX'D. VENT ALARMS ARE SET AND AUDIBLE WITH BVM BY BEDSIDE. CERTIFIED NURSE CUFF PRESSURE NOTED. VENT IS PLUGGED INTO RED OUTLET. SX'D SMALL CLEAR/WHITE SECRETIONS. NO RESPIRATORY DISTRESS NOTED AT THIS TIME, WILL CONTINUE TO MONITOR.
--- NOTE | 2018-08-20 06:20 | NUR ---
TOWER DRAGLINE OPERATOR NOTE RECEIVED CRITICAL LAB PLATELETS 17. NOTIFIED VIDEO CAMERA OPERATOR DR. WILLS WITH NO NEW ORDERS AT THIS TIME.
[2018-08-20 06:24] LABS: LYMPHOCYTES % (MANUAL) 2 % (16-48); MONOCYTES % (MANUAL) 2 % (0-11.0); NEUTROPHILS % (MANUAL) 96 (42-76)
[2018-08-20] MEDS: BLOOD SUGAR DIAGNOSTIC 1 EACH STRIP IN SCH ×4 (06:24→23:38)
[2018-08-20] MEDS: INSULIN REGULAR, HUMAN 100 UNIT/ML 3 ML VIAL SQ PRN ×2 (06:29→23:42)
[2018-08-20] MEDS: NOREPINEPHRINE 16 MG in IV D5W 500 ML IV PRN ×2 (07:24→18:22)
--- NOTE | 2018-08-20 08:00 | NUR ---
SEDATION VACATION PROPOFOL TITRATED DOWN PER PROTOCOL. SEE IV SPREADSHEET AT 0 MCG/KG/MIN NONLABORED BREATHING NOTED. PATIENT FOLLOWING COMMANDS, OPENING EYES AND MOVING UPPER AND LOWER EXTREMITIES PATIENT ORIENTED TO PLACE, SITUATION, AND ENVIRONMENT PROPOFOL TITRATED UP NO ORDER PRESENT FOR WEANING TODAY
[2018-08-20] MEDS: PROPOFOL 100 ML IV PRN ×2 (08:09→14:44)
[2018-08-20] MEDS: Z GUARD REMEDY 2 OZ OINT TP SCH (09:33)
[2018-08-20 12:10] LABS: ABG BASE EXCESS -10.3 mmol/L; ABG PCO2 19.9 mmHg (35.0-45.0); ABG PH 7.422 (7.350-7.450); ABG PO2 167.4 mmHg (75.0-100.0); AaDO2 130.8 mmHg; COHb 1.1 % (0.5-1.5); MetHb 0.3 % (0.0-1.5); O2Hb 96.6 % (94.0-97.0); PEEP,BG 5 cm H2O; SITE, ABG Right Radial; VT, ABG 450 mL
[2018-08-20 17:19] LABS: D-DIMER 10.93 mg/L(FEU (0.17-0.50)
--- NOTE | 2018-08-20 17:40 | NUR ---
DR ANGELES NOTIFIED OF DIC PANEL RESULTS WELL PLATELET LEVELS PER DR ANGELES, VITAMIN K 5 MG SUBC ONCE
[2018-08-20] MEDS ORDERED: PHYTONADIONE INJ 10 MG/1 ML AMPUL SQ ONE (18:00)
--- NOTE | 2018-08-20 19:00 | NUR ---
ACUTE BILATERAL UPPER EXTREMITIES SOFT WRIST RESTRAINTS ORDER PER DR STEVEN SEE ORDER DETAILS FOR INTERVENTIONS SKIN CHECKS AND VISUAL CHECKS DONE PER PROTOCOL
--- NOTE | 2018-08-20 20:53 | NUR ---
Received pt on vent support, pt is stable on noted settings, alarms are on and audible, ventilator is plugged into red outlet, ambu bag at bedside. Will continue monitoring patient. Addendum: 08/20/18 at 2052 by HOLLIE BALDERAS RT Amended: Links added.
[2018-08-20] MEDS: PANTOPRAZOLE 40 MG VIAL IV SCH (22:11)
[2018-08-21] VITALS (108 sets, daily range): BP systolic 49–126; BP diastolic 43–74
--- NOTE | 2018-08-21 | NUR ---
TRAVELERS' AID WORKER PT NOTED WITH LABORED RESPIRATIONS AND DROP IN BLOOD PRESSURE; INCREASED PROPOFOL PER PROTOCOL UP TO 30 MCG/KG/MIN; INCREASING LEVOPHED PER PROTOCOL. ABG DONE BY RT W/RESULTS PH 7.395 PC02 21 PO2 135.4 HCO3 12.6. CALL PLACED TO MD PENDING CALL BACK. CALL PLACED TO AVA RAPP BY CHARGE NURSE TO DISCUSS PLAN OF CARE AND CODE STATUS. PER COUSIN PT REMAINS FULL CODE.
[2018-08-21 00:27] LABS: ABG BASE EXCESS -10.7 mmol/L; ABG OXYGEN SATURATION 97.1 % (92.0-98.5); ABG PH 7.395 (7.350-7.450); ABG PO2 135.4 mmHg (75.0-100.0); AaDO2 161.6 mmHg; COHb 0.2 % (0.5-1.5); MetHb 0.2 % (0.0-1.5); O2Hb 96.7 % (94.0-97.0); SITE, ABG A-Line
[2018-08-21] MEDS ORDERED: PHENYLEPHRINE 10 MG/ML VIAL ONE (00:55)
[2018-08-21] MEDS: PROPOFOL 100 ML IV PRN ×3 (01:05→17:42)
--- NOTE | 2018-08-21 02:00 | NUR ---
SECOND FLOOR OPERATOR PTS COUSIN CALLED AND REQUESTED PT BE DNR. ORDER OBTAINED FROM DR WILLS.
[2018-08-21] MEDS: CEFAZOLIN 1 GM in IV D5W 50 ML IV SCH (04:00)
[2018-08-21] MEDS: METRONIDAZOLE 500MG/ NS 100ML 500 MG in PREMIX 1 EA IV SCH ×3 (04:30→21:40)
[2018-08-21 04:55] LABS: BASOPHILS % (AUTO) 0.1 % (0.0-2.0); EOSINOPHILS % (AUTO) 0.1 % (0.0-6.0); HEMATOCRIT 29 % (39-51); HEMOGLOBIN 9.3 g/dL (13.5-17.5); LYMPHOCYTES # (AUTO) 0.5 /CMM (0.8-4.8); LYMPHOCYTES % (AUTO) 1.9 % (20.0-44.0); MEAN CORPUSCULAR HGB CONC 33 g/dl (31.0-36.0); MEAN CORPUSCULAR VOLUME 81 fL (80-96); MONOCYTES # (AUTO) 0.4 /CMM (0.1-1.30); MONOCYTES % (AUTO) 1.7 % (2.0-12.0); NEUTROPHILS # (AUTO) 24.9 /CMM (1.8-8.9); NEUTROPHILS % (AUTO) 96.2 % (43.0-81.0); RED BLOOD CELL COUNT(AUTO) 3.54 MIL/uL (4.5-6.0); WHITE BLOOD COUNT (AUTO) 25.9 K/uL (4.3-11.0)
[2018-08-21 05:04] LABS: PLATELET COUNT (AUTO) 17 /CMM (150-450)
[2018-08-21 05:09] LABS: MAGNESIUM 1.9 mg/dL (1.8-2.4); POTASSIUM 4.9 mmol/L (3.5-5.1)
[2018-08-21] MEDS: Sodium Acetate 150 MEQ in IV D5W 1,000 ML IV PRN ×2 (05:25→16:04)
[2018-08-21 05:32] LABS: CALCIUM, SERUM 5.9 mg/dL (8.5-10.1)
[2018-08-21 05:33] LABS: BAND % (MANUAL) 6 % (0.0-5.0); NEUTROPHILS % (MANUAL) 94 (42-76)
[2018-08-21] MEDS: INSULIN REGULAR, HUMAN 100 UNIT/ML 3 ML VIAL SQ PRN ×3 (05:58→17:39)
[2018-08-21] MEDS: BLOOD SUGAR DIAGNOSTIC 1 EACH STRIP IN SCH ×3 (06:05→17:40)
[2018-08-21] MEDS: NOREPINEPHRINE 16 MG in IV D5W 500 ML IV PRN ×2 (07:19→19:34)
--- NOTE | 2018-08-21 07:40 | NUR ---
AUDIO/VIDEO ENGINEER: pt.is sedated well with 20mcg/kg/m Diprivan, reactive by pain, SR, on Levophed gtt 20mcg/m now, SBP over 100, MAP overt 65 now, continue titrate, [place]: re-endorsed dressing, secured, 0ed, O2sat. over 95%, suctioned well, RR WNL, NPO, GTF to LIS, but with high pressure suction/adjusted to 70-80mmHg/darkgreen suction, CINTHIA suction patent/SS+little bloody, 2xcolostomy is intact/liquid brown stool, platelets [id number] now/no acute bleeding by report, continue IVF Na acetate in D5W per /reported, TLC dressing needs to be endorse/part covered with tegaderm only, no sutures over, adjusted pt position/CVP is 2 now, will turn pt. q2h
[2018-08-21] MEDS: Z GUARD REMEDY 2 OZ OINT TP SCH (08:38)
--- NOTE | 2018-08-21 09:30 | NUR ---
EXTRUSION DIE CORRECTOR: Aracelis SBP 106-113, continue titrate Levophed, pharmacist was in room/updated, called/updated with pt.condition, VS, history
--- NOTE | 2018-08-21 10:00 | NUR ---
BLOOD DONOR RECRUITER: is in room, updated with pt.sedation level, Levophed gtt, VS, I/O, IVF, CINTHIA drainage, NGT LIS, labs, edema level
--- NOTE | 2018-08-21 10:30 | NUR ---
WIRELESS MANAGER: notified re pt.history, VS, I/O, Levophed gtt, sedation level, IVF, edema level, labs, YARON drain color/amount, NGT LIS color/amount, evaluated colostomies, spoke with
[2018-08-21] MEDS ORDERED: FUROSEMIDE 20 MG/2 ML VIAL IV ONE (11:00)
--- NOTE | 2018-08-21 12:00 | NUR ---
BEAR KEEPER: Re-endorse L.S/C TLC dressing, changed colostomies bags, is in room, updated with pt.current condition, sedation level, pressor, vent.setting, suction amount, I/o, drain amount, IVF/said continue, NGT LIS suction, see new orders
[2018-08-21] MEDS: PIPERACILLIN /TAZOBACTAM 3.375 G in IV D5W 100 ML IV SCH ×2 (13:31→21:40)
[2018-08-21 14:09] LABS: LYMPHOCYTES % (MANUAL) 0 % (16-48)
--- NOTE | 2018-08-21 16:00 | NUR ---
ELECTRICAL CONSTRUCTION PROJECT MANAGER: SBP by monitor 82-93, MAP 63-72, Levophed gtt 26 mcg/min now, flushed lines, 0-ed, [place] SBP 100-120, SR, continue titrate pressor, decreased sedation to 10 mcg/kg/m, same neuro reaction: can little grimacing only with pain stimuli, no activity, RR 21, O2sat. over 95%, CINTHIA drainage is patent/intact/sanguineous drain, colostomies bags are intact, NGT to LIS green drain, reactive for Lasix/urine up, abdomen incision dressing is intact, same general edema level
--- NOTE | 2018-08-21 18:30 | NUR ---
STITCH BONDING MACHINE DRAWER IN: all skin/PM/wounds care done, pt.was turned q2h, needs [employer] mattress/order was placed in 4 days ago, will endorse next shift, notified charge nurse, CVP 3-5 now, MAP over 65, SR, arms multiple fluid oozing over bruises, all dressings are intact
--- NOTE | 2018-08-21 18:30 | NUR ---
PICKLE SOLUTION MAKER: will notify next nurse for w/c consult, pt.cousin Izzy wants to speak with primary MD re prognosis, Dx,
--- NOTE | 2018-08-21 19:30 | NUR ---
RN NOTES RECEIVED PT AND ABLE TO OPENS EYES W/ STIMULI. ORALLY INTUBATED ETT 7.5 / 22 CM AT LIP W/ VENT SETTING AC 20 TV 650 FIO2 45% AND PEEP 5. NO ACUTE RESPIRATORY DISTRESS. DNR STATUS. WITH NGT ON LIS WITH LARGE GREENISH OUTPUT. NSR ON TELE MONITOR. WITH CVP READING OF 3 CALIBRATED. IV SITE ON LEFT SUBCLAVIAN RUNNING WITH DIPRIVAN 10 MCG/KG/MIN, AND LEVOPHED @ 26 MCG/MIN. INTACT AND PATENT. 2 COLOSTOMY BAG SEALED. CINTHIA DRAINED WITH SEROSANGUINEOUS OUTPUT ABOUT 90 ML REMOVED.PT POLLOCK MAINTAINED ADEQUATE AMT. OF URINE. KEPT PT CLEAN AND COMFORTABLE IN BED. WILL CLOSELY MONITOR.
[2018-08-21] MEDS: PANTOPRAZOLE 40 MG VIAL IV SCH (23:54)
[2018-08-22] VITALS (108 sets, daily range): BP systolic 78–136; BP diastolic 51–78
[2018-08-22] MEDS: BLOOD SUGAR DIAGNOSTIC 1 EACH STRIP IN SCH ×4 (00:01→18:50)
[2018-08-22] MEDS: INSULIN REGULAR, HUMAN 100 UNIT/ML 3 ML VIAL SQ PRN ×3 (00:02→18:14)
[2018-08-22] MEDS: Sodium Acetate 150 MEQ in IV D5W 1,000 ML IV PRN ×2 (00:32→10:55)
[2018-08-22] MEDS ORDERED: NOREPINEPHRINE 4 MG/4 ML AMPUL IV ONE (03:18)
[2018-08-22 04:26] LABS: BASOPHILS % (AUTO) 0.1 % (0.0-2.0); EOSINOPHILS % (AUTO) 0.1 % (0.0-6.0); HEMATOCRIT 28 % (39-51); HEMOGLOBIN 9.3 g/dL (13.5-17.5); LYMPHOCYTES # (AUTO) 0.6 /CMM (0.8-4.8); LYMPHOCYTES % (AUTO) 2.8 % (20.0-44.0); MEAN CORPUSCULAR HGB CONC 33 g/dl (31.0-36.0); MEAN CORPUSCULAR VOLUME 80 fL (80-96); MONOCYTES # (AUTO) 0.4 /CMM (0.1-1.30); MONOCYTES % (AUTO) 2.1 % (2.0-12.0); NEUTROPHILS # (AUTO) 18.7 /CMM (1.8-8.9); NEUTROPHILS % (AUTO) 94.9 % (43.0-81.0); RED BLOOD CELL COUNT(AUTO) 3.51 MIL/uL (4.5-6.0); WHITE BLOOD COUNT (AUTO) 19.8 K/uL (4.3-11.0)
[2018-08-22 04:36] LABS: PLATELET COUNT (AUTO) 20 /CMM (150-450)
[2018-08-22 04:52] LABS: CALCIUM, SERUM 6.3 mg/dL (8.5-10.1); CREATININE 2.8 mg/dL (0.6-1.3); MAGNESIUM 1.7 mg/dL (1.8-2.4); PHOSPHORUS 4.5 mg/dL (2.5-4.9); POTASSIUM 5.8 mmol/L (3.5-5.1)
[2018-08-22 05:02] LABS: LYMPHOCYTES % (MANUAL) 2 % (16-48); MONOCYTES % (MANUAL) 2 % (0-11.0)
[2018-08-22 05:03] LABS: NEUTROPHILS % (MANUAL) 96 (42-76)
[2018-08-22] MEDS: PROPOFOL 100 ML IV PRN ×2 (06:07→16:23)
[2018-08-22] MEDS: PIPERACILLIN /TAZOBACTAM 3.375 G in IV D5W 100 ML IV SCH ×2 (06:07→12:17)
[2018-08-22] MEDS: METRONIDAZOLE 500MG/ NS 100ML 500 MG in PREMIX 1 EA IV SCH ×2 (06:07→12:16)
[2018-08-22] MEDS: NOREPINEPHRINE 16 MG in IV D5W 500 ML IV PRN ×2 (06:09→16:08)
[2018-08-22] MEDS ORDERED: FUROSEMIDE 20 MG/2 ML VIAL IV ONE (07:30)
--- NOTE | 2018-08-22 07:30 | NUR ---
RN NOTES NO SIGNIFICANT CHANGES. EYES IS OPENING TO STIMULI. . AFEBRILE TROUGHOUT THE SHIFT. ETT AND VENT SETTING TOELRATED WELL. SR ON MONITOR. CVP READS 5, CALIBRATED. 2 COLOSTOMY CINTHIA DRAINED AND DRAINING WELL. WITH ADEQ AMT OF URINE OUTPUT FROM POLLOCK CATH. CONTINEU WITH DIPRIVAN @ 10 MCG/KG/MIN AND LEVOPHED @ 25 MCG/ MIN. VSS. WOUND DRESSING CHANGED. TUNRD AND REPOSITIONED PT Q2 H. REDUCED PRESSURE TO BONY PROMINENCE AREWA. KEPT PT CELAN AND DRY. ENDORSED CONTINUITY OF CARE TO AM NURSE.
--- NOTE | 2018-08-22 07:40 | NUR ---
OUTPATIENT INTERVIEWING CLERK: pt.is sedated with 10 mcg/kg/m Diprivan, can open eyes for seconds with suction, no any contact reaction, trace arms activity, slightly grimacing, will up Diprivan to 15 mcg/kg/m, RR 18-22, O2 sat. over 96%, SR, on 26 mcg/m Levophed gtt now, SBP 99-103, MAP 76-80, [place] SBP 127-114, continue titrate pressor down, CINTHIA drainage: sanguineous, NGT LIS: dark green, pt.needs [employer] mattress since adm to ICU, CVP 1-5 over night by report, now CVP 2, Aracelis connected/secured/dressing changed, colostomies: light brown/red small liquid stool, IVF: Na acetate in D5w 125m\hs, MDs notified, was in room, updated by night nurse, ordered Lasix 80mg x1, platelets [id number], no acute bleeding by report
[2018-08-22] MEDS: Z GUARD REMEDY 2 OZ OINT TP PRN (07:55)
[2018-08-22] MEDS: Z GUARD REMEDY 2 OZ OINT TP SCH (07:56)
--- NOTE | 2018-08-22 09:00 | NUR ---
INSTRUMENT REPAIRER HELPER: is in room, updated with pt.current condition, VS, Levophed gtt, sedation level, CVP, O2sat., I/O, IVF, suctions, drains amount, orders, neurostatus, spoke with RT, ordered ABG, see new orders. Pt.is on regular bed since 08/17, called for COUNTS INCLUDE 234 BEDS AT THE [facility] mattress
[2018-08-22 09:18] LABS: ABG BASE EXCESS -5.3 mmol/L; ABG OXYGEN SATURATION 97.7 % (92.0-98.5); ABG PCO2 24.1 mmHg (35.0-45.0); ABG PH 7.471 (7.350-7.450); ABG PO2 143.3 mmHg (75.0-100.0); AaDO2 114.2 mmHg; COHb 0.7 % (0.5-1.5); MetHb 0.2 % (0.0-1.5); O2Hb 96.8 % (94.0-97.0); PEEP,BG 5 cm H2O; SITE, ABG A-Line; VENT MODE, BG AC 20 650 40%
[2018-08-22] MEDS ORDERED: Magnesium 1GM/D5W 100ML PREMIX 100 ML IV SCH (10:32)
--- NOTE | 2018-08-22 10:40 | NUR ---
RT VT DECREASED TO [address] MORENO. VENT ALARMS CHECKED + AUDIBLE. ETT SECURE AND IN PROPER POSITION. AIRWAY SUCTIONED AND PATENT. PATIENT NON RESPONSIVE, IN CRITICAL CONDITION. AMBU BAG AT HOB. Addendum: 08/22/18 at 1222 by CHARU ZAMBRANO RT Amended: Links added.
[2018-08-22] MEDS ORDERED: BUMETANIDE INJ 0.25 MG/ML VIAL IV ONE (11:00)
[2018-08-22] MEDS ORDERED: TPN/PPN PER PHARMACY XX PRN (11:00)
--- NOTE | 2018-08-22 11:00 | NUR ---
ROUGHER MERCHANT MILL: updated with pt.current condition, VS, Levophed gtt, sedation level, neuro status, CVP, I/O, IVF, labs, platelets 20, CINTHIA suction color/amount, NGT LIS suction color/amount, colostomies status, skin status, labs, ABG, 08/21 visit. ordered 2mg Bumex, start IV TPN
--- NOTE | 2018-08-22 11:15 | NUR ---
SOFTLINES SUPERVISOR: updated pharmacy/Fiorella hwang pt.current status, history, IV assess, NGT LIS, IVF Na acetate in D5w 125ml/h d/t new TPN order from
[2018-08-22] MEDS ORDERED: FEE PK DOSING 1 MIN EA MC ONE ×2 (12:14→18:50)
[2018-08-22] MEDS ORDERED: FEE TPN 1 MIN EA MC ONE (12:23)
[2018-08-22] MEDS ORDERED: TPN BAG #1 IV PRN ×7 (12:30)
--- NOTE | 2018-08-22 12:30 | NUR ---
MUSICAL PERFORMER: Fiorella/pharmacist spoke with /confirmed: stop IVF when TPN started
--- NOTE | 2018-08-22 18:00 | NUR ---
INDUSTRIAL ENGINEERING INTERN: SR, O2sat. over 98%, all skin/PM/drains care done, pt.is placed on [employer] mattress, continue titrate Levophed, BS in 4 hrs after TPN started is 162, , Nhung LANG were in room, updated with all above, see new orders
[2018-08-22] MEDS ORDERED: MEROPENEM 500 MG in IV NS 0.9% 50 ML IV SCH (18:30)
[2018-08-22] MEDS ORDERED: VANCOMYCIN 1 GM in IV D5W 250 ML IV ONE (19:00)
--- NOTE | 2018-08-22 19:40 | NUR ---
RN NOTES PATIENT'S EYES OPEN TO STIMULI. ORALLY INTUBATED ETT AND VENT SETTING AC 20 TV 600 FIO2 45% AND PEEP 5. CALM ON DIPRIVAN @ 15 MCG/KG/MIN. WITH NGT ON LIS WITH LARGE GREENISH OUTPUT. NSR ON TELE MONITOR. WITH CVP READING OF 2 CALIBRATED. IV SITE ON LEFT SUBCLAVIAN RUNNING WITH DIPRIVAN, LEVOPHED @ 24 MCG/MIN AND TPN @ 40 ML/HR INTACT AND PATENT. PATIENT HAS 2 COLOSTOMY BAG SEALED WITH BLACK LIQUID STOOL. CINTHIA DRAINED WITH SEROSANGUINEOUS OUTPUT. POLLOCK CATH INTACT AND IN PLACED WITH YELLOW CLEAR COLOR URINE. KEPT PT CLEAN AND DRY WILL CONTINUE TO MONITOR.
[2018-08-22] MEDS: MICAFUNGIN SODIUM 100 MG in IV NS 0.9% 100 ML IV SCH (19:57)
--- NOTE | 2018-08-22 21:49 | NUR ---
RECEIVED PT INTUBATED 7.5 ETT @ 22CM AT THE LIP ON VENT. NO RESP DISTRESS. PT TOLERATING VENT SETTINGS. ETT SECURE, BITE BLOCK IN PLACE. SX'D FOR SML AMT OF THICK PALE SECRETIONS. VENT ALARMS SET AND AUDIBLE. AMBU BAG AT BEDSIDE. WILL CONTINUE TO MONITOR. Addendum: 08/22/18 at 2151 by JENNY GARRETT RT Amended: Links added.
[2018-08-22] MEDS ORDERED: MEROPENEM 500 MG VIAL IV ONE (22:04)
[2018-08-22] MEDS: MEROPENEM 500 MG in IV NS 0.9% 100 ML IV SCH (22:24)
[2018-08-22] MEDS: PANTOPRAZOLE 40 MG VIAL IV SCH (22:28)
[2018-08-23] VITALS (105 sets, daily range): BP systolic 79–144; BP diastolic 49–90
[2018-08-23] MEDS: BLOOD SUGAR DIAGNOSTIC 1 EACH STRIP IN SCH ×5 (01:16→23:59)
[2018-08-23] MEDS: INSULIN REGULAR, HUMAN 100 UNIT/ML 3 ML VIAL SQ PRN ×4 (01:19→23:59)
[2018-08-23] MEDS: NOREPINEPHRINE 16 MG in IV D5W 500 ML IV PRN ×2 (02:24→11:57)
[2018-08-23] MEDS: PROPOFOL 100 ML IV PRN ×2 (02:24→13:44)
[2018-08-23 04:51] LABS: BASOPHILS % (AUTO) 0.1 % (0.0-2.0); EOSINOPHILS % (AUTO) 0.2 % (0.0-6.0); HEMATOCRIT 28 % (39-51); HEMOGLOBIN 9.1 g/dL (13.5-17.5); LYMPHOCYTES # (AUTO) 0.9 /CMM (0.8-4.8); LYMPHOCYTES % (AUTO) 2.8 % (20.0-44.0); MEAN CORPUSCULAR HGB CONC 33 g/dl (31.0-36.0); MEAN CORPUSCULAR VOLUME 80 fL (80-96); MONOCYTES # (AUTO) 0.4 /CMM (0.1-1.30); MONOCYTES % (AUTO) 1.5 % (2.0-12.0); NEUTROPHILS % (AUTO) 95.4 % (43.0-81.0); RED BLOOD CELL COUNT(AUTO) 3.46 MIL/uL (4.5-6.0)
[2018-08-23 05:10] LABS: CALCIUM, SERUM 6.8 mg/dL (8.5-10.1); CREATININE 2.6 mg/dL (0.6-1.3); MAGNESIUM 1.8 mg/dL (1.8-2.4); PHOSPHORUS 4.6 mg/dL (2.5-4.9); POTASSIUM 4.9 mmol/L (3.5-5.1)
[2018-08-23 05:16] LABS: PLATELET COUNT (AUTO) 43 /CMM (150-450); WHITE BLOOD COUNT (AUTO) 30.4 K/uL (4.3-11.0)
[2018-08-23 05:33] LABS: BAND % (MANUAL) 3 % (0.0-5.0); NEUTROPHILS % (MANUAL) 89 (42-76)
[2018-08-23 05:34] LABS: LYMPHOCYTES % (MANUAL) 4 % (16-48); MONOCYTES % (MANUAL) 4 % (0-11.0)
--- NOTE | 2018-08-23 07:25 | NUR ---
RN NOTES PT RECEIVED WITH ETT 22 CM AT LIP LINE ON MECHANICAL VENTIALTION TOLERATED WELL. CONTINUED WITH SEDATION ,VASO PRESSORS AND TPN ORDERED. PATIENT'S IV IS ON LEFT SUBCLAVIAN RUNNING WITH TPN @ 40 ML/HR, DIPRIVAN @ 8 MCG/KG./MIN, LEVOPHED @ 23 MCG/MIN AND CVP CALIBRATED NO REDNESS OR INFILTRATION NOTED TO IV SITE. ART LINE KEPT INTACT ON RIGHT FEMORAL ARTERY.. NO ACTIVE BLEEDING FROM THE SITE. PT WITH WEEPING DUE TO ANASARCA. NGT TO LIS WITH DARK GREENISH OUT PUT, CINTHIA DRAIN INTACT. KEPT CLEAN AND DRY, CALL LIGHT WITHIN EASY REACH WILL CONTINUE TO MONITOR
--- NOTE | 2018-08-23 07:27 | NUR ---
RN NOTES PT REMAINED THE SAME. AFEBRILE. ETT W/ VENT TOLERATED WELL. SATURATION >95%.. CONTINUE WITH SEDATION ,PRESSORS AND TPN. PATIENT'S IV IS ON LEFT SUBCLAVIAN RUNNING WITH TPN @ 40 ML/HR, DIPRIVAN @ 8 MCG/KG./MIN, LEVOPHED @ 23 MCG/MIN AND CVP CALIBRATED. ART LINE KEPT INTACT ON RIGHT FEMORAL ARTERY.. NO ACTIVE BLEEDING FROM THE SITE. PT WITH WEEPING DUE TO ANASARCA. NGT IN LIS WITH DARK GREENISH OUT PUT, CINTHIA DRAIN KEPT INTACT. KEPT PT CLEAN AND DRY. ENDORSED CONTINUITY OF CARE TO AM NURSE.
[2018-08-23] MEDS: Z GUARD REMEDY 2 OZ OINT TP SCH (08:38)
--- NOTE | 2018-08-23 09:17 | NUR ---
RN NOTES/ARTERIAL LINE READINGS ARTERIAL LINE READINGS PLACED IN DATASCOPE MANUALLY, SBP REMAINS >90 AND MAP >60 WILL CONTINUE TO MONITOR
--- NOTE | 2018-08-23 09:18 | NUR ---
RN NOTES CALLED PHARMACY FOR DELIVERY OF MERREM WILL ADMINISTER WHEN AVAILABLE
[2018-08-23] MEDS ORDERED: IV NS 0.9% 1,000 ML IV ONE (09:30)
[2018-08-23] MEDS: MEROPENEM 500 MG in IV NS 0.9% 100 ML IV SCH ×2 (09:34→21:31)
[2018-08-23 09:47] LABS: ALBUMIN 0.7 g/dL (3.4-5.0)
[2018-08-23 09:51] LABS: ABG PCO2 30.4 mmHg (35.0-45.0); ABG PH 7.538 (7.350-7.450); ABG PO2 137.5 mmHg (75.0-100.0); AaDO2 112.7 mmHg; COHb 0.8 % (0.5-1.5); MetHb 0.3 % (0.0-1.5); O2Hb 96.9 % (94.0-97.0); SITE, ABG Right Radial; VENT MODE, BG AC 20 600 +5 40%
[2018-08-23] MEDS: Calcium Gluconate 1GM/10ML 9.3 MEQ in IV NS 0.9% 250 ML IV SCH ×3 (10:36→16:54)
--- NOTE | 2018-08-23 11:00 | NUR ---
RN NOTES PAGED GEOSPATIAL EXTRACTOR ANALYSIS FOR NOTIFICATION OF LAB RESULTS
[2018-08-23] MEDS ORDERED: TPN BAG #2 IV PRN ×7 (12:00)
--- NOTE | 2018-08-23 14:04 | NUR ---
RN NOTES CALLED PHARMACY FOR DELIVERY OF CALCIUM GLUCONATE BAG 2 WILL ADMINISTER WHEN AVAILABLE
[2018-08-23] MEDS: VANCOMYCIN 0.75 GM in IV D5W 250 ML IV SCH (17:27)
[2018-08-23 19:06] LABS: D-DIMER 7.26 mg/L(FEU (0.17-0.50)
--- NOTE | 2018-08-23 19:25 | NUR ---
FUR CLEANER RCD PT W/DX SEPSIS; PERF BOWEL; S/P EXP LAP 08/16; PT IS ON PROPOFOL WITH EPISODES OF WAKING UP; PT DOES NOT FOLLOW COMMANDS OR NOTED MOVING BUE EXTREMITIES. INTUBATED 7.5 @ 22 W/VENT SETTINGS AC 16 550 405 +5; W/THICK WHITE SECRETIONS NOTED. NSR/ST ON MONITOR. PT ON LEVOPHED AT 14 MCG/MIN. TPN @ 60 ML/HR. DR ANGELES NOTIFIED OF DIC PANEL RESULTS W/NO NEW ORDERS.
--- NOTE | 2018-08-23 19:32 | NUR ---
RN CLOSING NOTES 1545 SEEN AND EXAMINED BY DR ANGELES PER PT TO HAVE DIC PANEL DRAWN RN TO REPORT RESULTS AND SHE WILL GIVE ORDERS 1800 SEEN AND EXAMINED BY DR HE PER SURGEON PT TO HAVE CT OF ABDOMEN NO CONTRAST, MD WILL ORDER PT WITH ETT 22 CM AT LIP LINE ON MECHANICAL VENTIALTION TOLERATED WELL. CONTINUED WITH SEDATION ,VASO PRESSORS AND TPN ORDERED. PATIENT'S ACCESS SITE IS ON LEFT SUBCLAVIAN RUNNING WITH TPN @ 60 ML/HR, DIPRIVAN @ 8 MCG/KG./MIN, LEVOPHED @ 14 MCG/MIN AND CVP CALIBRATED NO REDNESS OR INFILTRATION NOTED TO ACCESS SITE. ART LINE KEPT INTACT ON RIGHT FEMORAL ARTERY.. NO ACTIVE BLEEDING FROM THE SITE. PT WITH WEEPING DUE TO ANASARCA. NGT TO LIS WITH DARK GREENISH OUT PUT, CINTHIA DRAIN INTACT. KEPT CLEAN AND DRY, CALL LIGHT WITHIN EASY REACH, ENDORSED TO NEXT SHIFT FOR CONTINUITY OF CARE, DIC PANEL RESULTS PENDING
[2018-08-23] MEDS: MICAFUNGIN SODIUM 100 MG in IV NS 0.9% 100 ML IV SCH (20:00)
--- NOTE | 2018-08-23 20:30 | NUR ---
PRINTING AGENT PT SBP <90; TITRATED LEVOPHED TO 22 MCG/MIN AT THIS TIME. CONTINUE TO MONITOR.
[2018-08-23] MEDS ORDERED: TPN BAG #3 IV PRN ×5 (22:00)
[2018-08-23] MEDS: PANTOPRAZOLE 40 MG VIAL IV SCH (23:47)
[2018-08-24] VITALS (108 sets, daily range): BP systolic 88–129; BP diastolic 48–83
[2018-08-24] MEDS: PROPOFOL 100 ML IV PRN ×2 (00:15→12:01)
[2018-08-24] MEDS: NOREPINEPHRINE 16 MG in IV D5W 500 ML IV PRN ×2 (00:16→12:00)
[2018-08-24 05:33] LABS: CALCIUM, SERUM 6.8 mg/dL (8.5-10.1); CREATININE 2.5 mg/dL (0.6-1.3); MAGNESIUM 1.7 mg/dL (1.8-2.4); PHOSPHORUS 4.6 mg/dL (2.5-4.9); POTASSIUM 4.4 mmol/L (3.5-5.1)
[2018-08-24 05:36] LABS: BASOPHILS # (AUTO) 0.1 /CMM (0.0-0.2); BASOPHILS % (AUTO) 0.2 % (0.0-2.0); EOSINOPHILS % (AUTO) 0.1 % (0.0-6.0); HEMATOCRIT 27 % (39-51); HEMOGLOBIN 8.7 g/dL (13.5-17.5); LYMPHOCYTES # (AUTO) 0.9 /CMM (0.8-4.8); LYMPHOCYTES % (AUTO) 2.2 % (20.0-44.0); MEAN CORPUSCULAR HGB CONC 32 g/dl (31.0-36.0); MEAN CORPUSCULAR VOLUME 82 fL (80-96); MONOCYTES # (AUTO) 0.4 /CMM (0.1-1.30); NEUTROPHILS # (AUTO) 40.1 /CMM (1.8-8.9); NEUTROPHILS % (AUTO) 96.5 % (43.0-81.0); PLATELET COUNT (AUTO) 59 /CMM (150-450); RED BLOOD CELL COUNT(AUTO) 3.31 MIL/uL (4.5-6.0)
[2018-08-24 05:51] LABS: WHITE BLOOD COUNT (AUTO) 41.6 K/uL (4.3-11.0)
[2018-08-24] MEDS: BLOOD SUGAR DIAGNOSTIC 1 EACH STRIP IN SCH ×4 (06:12→23:04)
[2018-08-24] MEDS: INSULIN REGULAR, HUMAN 100 UNIT/ML 3 ML VIAL SQ PRN ×4 (06:13→23:06)
[2018-08-24 06:28] LABS: BAND % (MANUAL) 23 % (0.0-5.0); LYMPHOCYTES % (MANUAL) 2 % (16-48); METAMYELOCYTES % 1 % (0-0); MONOCYTES % (MANUAL) 1 % (0-11.0); NEUTROPHILS % (MANUAL) 71 (42-76); PROMYELOCYTES % 2 % (0-0)
--- NOTE | 2018-08-24 07:15 | NUR ---
RN OPENING NOTES PT WITH ETT 22 CM AT LIP LINE ON MECHANICAL VENTILATION TOLERATED WELL WILL FOLLOW UP ON NEED FOR TUBE ADVANCEMENT PER CXR RESULT. CONTINUED WITH SEDATION ,VASO PRESSORS AND TPN ORDERED. PATIENT'S ACCESS SITE IS ON LEFT SUBCLAVIAN RUNNING WITH TPN @ 60 ML/HR, DIPRIVAN @ 8 MCG/KG./MIN, LEVOPHED @ 22 MCG/MIN AND CVP CALIBRATED NO REDNESS OR INFILTRATION NOTED TO ACCESS SITE. ART LINE KEPT INTACT ON RIGHT FEMORAL ARTERY.. NO ACTIVE BLEEDING FROM THE SITE. PT WITH WEEPING DUE TO ANASARCA. NGT TO LIS WITH DARK GREENISH OUT PUT, CINTHIA DRAIN INTACT. KEPT CLEAN AND DRY, CALL LIGHT WITHIN EASY REACH, WILL CONTINUE TO MONITOR
[2018-08-24] MEDS ORDERED: TPN BAG #3 IV PRN ×5 (07:44)
[2018-08-24] MEDS ORDERED: TPN BAG #4 IV PRN ×7 (08:00)
[2018-08-24 08:21] LABS: ABG BASE EXCESS -1.9 mmol/L; ABG OXYGEN SATURATION 97.2 % (92.0-98.5); ABG PCO2 35.3 mmHg (35.0-45.0); ABG PH 7.417 (7.350-7.450); ABG PO2 125.1 mmHg (75.0-100.0); AaDO2 119.5 mmHg; COHb 0.5 % (0.5-1.5); MetHb 0.2 % (0.0-1.5); O2Hb 96.5 % (94.0-97.0); SITE, ABG A-Line
--- NOTE | 2018-08-24 08:30 | NUR ---
RN NOTES ET TUBE ADVANCED BY 2CM ORDERED
[2018-08-24] MEDS: Z GUARD REMEDY 2 OZ OINT TP SCH (08:41)
[2018-08-24] MEDS: MEROPENEM 500 MG in IV NS 0.9% 100 ML IV SCH ×2 (08:41→21:20)
--- NOTE | 2018-08-24 09:12 | NUR ---
RT PER DR MORENO ETT ADVANCED 2CM AND SECURED AT 24CM TOP LIP. PEEP WAS ALSO D/C'D. Addendum: 08/24/18 at 0912 by CHARU ZAMBRANO RT Amended: Links added.
[2018-08-24] MEDS ORDERED: Calcium Gluconate 1GM/10ML 9.3 MEQ in IV NS 0.9% 250 ML IV SCH (12:00)
[2018-08-24] MEDS: Calcium Gluconate 1GM/10ML 9.3 MEQ in IV NS 0.9% 250 ML IV SCH ×3 (17:19→23:01)
--- NOTE | 2018-08-24 18:50 | NUR ---
DEAN NOTES ALVINR ULISSES AND MIMA TO USE PICC LINE Addendum: 08/24/18 at 1 by MARGARET DICKERSON RN Amended: Links added.
--- NOTE | 2018-08-24 19:30 | NUR ---
RN CLOSING NOTES PT WITH ETT 24 CM AT LIP LINE ON MECHANICAL VENTILATION TOLERATED . CONTINUED WITH SEDATION ,VASO PRESSORS AND TPN ORDERED. PATIENT'S ACCESS SITE IS ON LEFT SUBCLAVIAN RUNNING WITH TPN @ 60 ML/HR, DIPRIVAN @ 8 MCG/KG./MIN, LEVOPHED @ 18 MCG/MIN AND CVP CALIBRATED NO REDNESS OR INFILTRATION NOTED TO ACCESS SITE. PER LOCAL TELEPHONE OPERATOR INSERT PICC LINE, PICC LINE JUST PLACED AND OKAY TO USE PER CXR AND LOCAL TELEPHONE OPERATOR. ALL LINES TO BE CHANGED AND CONNECTED TO PICC LINE. ART LINE KEPT INTACT ON RIGHT FEMORAL ARTERY. FEMORAL LINE AND SUBCLAVIAN LINE TO BE REMOVED AND SENT FOR CULTURE. PT WITH WEEPING DUE TO ANASARCA. NGT TO LIS WITH DARK GREENISH OUT PUT, CINTHIA DRAIN INTACT. ENDORSED TO NEXT SHIFT FOR COLLECTION OF SPECIMENS.KEPT CLEAN AND DRY, CALL LIGHT WITHIN EASY REACH, WILL CONTINUE TO MONITOR, ENDORSED TO NEXT SHIFT FOR CONTINUITY OF CARE
--- NOTE | 2018-08-24 19:53 | NUR ---
RECEIVED PT INTUBATED ON VENTILATOR SUPPORT, NO RESP DISTRESS. PT TOLERATING VENT SETTINGS. SX'D FOR MOD AMT OF THICK PALE SECRETIONS. VENT ALARMS SET AND AUDIBLE. AMBU BAG AT BEDSIDE. ETT SECURE, CUFF HOG KILLER. WILL CONTINUE TO MONITOR. Addendum: 08/24/18 at 1952 by HOLLIE BALDERAS RT Amended: Links added.
--- NOTE | 2018-08-24 20:35 | NUR ---
RN NOTES PATIENT ORALLY INTUBATED WITH ETT 7.5 AND A24 CM AT LIP WITH VENT SETTING AC 16 TV 550 FIO2 40% NO PEEP. SUCTIONED WITH THICK WHITICH SECRETION. BILATERAL BREATH SOUND RHONCHI. SATURATION 100%.NGT IN LIS. GENERALIZED EDEMA PRESENT WITH COLOSTOMY AND MUCUS FISTULA, CINTHIA DRAINED WITH SEROUS FLUIDS. IV SITE ON MARIA INES TLC WITH LEVO, TPN AND DIPRIVAN DRIP. PREVIOUS SHIFT ENDORSED TO REMOVED ARTERIAL LINE AND CVP AND SENT THE TIP OF EACH CATHETER TO THE LAB FOR CULTURE. WILL FOLLOW UP MD REGARDING THE DISCONTINUATION OF ART-LINE PT NIBP AND A- LINE HAVE A BIG DIFFERENCE BP. KEPT PT CLEAN AND DRY. WILL CONTINUE TO MONITOR.
[2018-08-24] MEDS: VANCOMYCIN 0.75 GM in IV D5W 250 ML IV SCH (21:04)
[2018-08-24] MEDS: MICAFUNGIN SODIUM 100 MG in IV NS 0.9% 100 ML IV SCH (21:19)
[2018-08-24] MEDS: METRONIDAZOLE 500MG/ NS 100ML 500 MG in PREMIX 1 EA IV SCH (21:20)
[2018-08-24 21:44] LABS: D-DIMER 7.5 mg/L(FEU (0.17-0.50)
--- NOTE | 2018-08-24 22:15 | NUR ---
RN NOTES HONG EDWARD ON THE FLOOR INFORMED REGARDING THE ORDER TO DISCONTINUE THE ARTERIAL LINE AND CVP LINE. AND SENT THE TIP TO THE LAB FOR CULTURE. EXPLAINED THAT THE ARTERIAL LINE IS BIG ABOUT 30-40 DIFFERENCE FROM THE NIBP PER MD TO DISCONTINUE IT IN AM MORE RESOURCES AVAILABLE.
[2018-08-24] MEDS: PANTOPRAZOLE 40 MG VIAL IV SCH (22:29)
[2018-08-25] VITALS (106 sets, daily range): BP systolic 64–159; BP diastolic 33–98
[2018-08-25] MEDS: NOREPINEPHRINE 16 MG in IV D5W 500 ML IV PRN ×2 (01:59→14:21)
[2018-08-25 04:44] LABS: BASOPHILS # (AUTO) 0.1 /CMM (0.0-0.2); BASOPHILS % (AUTO) 0.1 % (0.0-2.0); EOSINOPHILS % (AUTO) 0.1 % (0.0-6.0); HEMATOCRIT 25 % (39-51); HEMOGLOBIN 7.7 g/dL (13.5-17.5); LYMPHOCYTES # (AUTO) 0.9 /CMM (0.8-4.8); LYMPHOCYTES % (AUTO) 1.7 % (20.0-44.0); MEAN CORPUSCULAR HGB CONC 31 g/dl (31.0-36.0); MEAN CORPUSCULAR VOLUME 83 fL (80-96); MONOCYTES # (AUTO) 0.7 /CMM (0.1-1.30); MONOCYTES % (AUTO) 1.3 % (2.0-12.0); NEUTROPHILS % (AUTO) 96.8 % (43.0-81.0); PLATELET COUNT (AUTO) 84 /CMM (150-450); RED BLOOD CELL COUNT(AUTO) 2.95 MIL/uL (4.5-6.0)
[2018-08-25 04:56] LABS: CALCIUM, SERUM 7.6 mg/dL (8.5-10.1); CREATININE 2.3 mg/dL (0.6-1.3); MAGNESIUM 1.9 mg/dL (1.8-2.4); PHOSPHORUS 4.5 mg/dL (2.5-4.9); POTASSIUM 4.2 mmol/L (3.5-5.1)
[2018-08-25 05:01] LABS: WHITE BLOOD COUNT (AUTO) 51.6 K/uL (4.3-11.0)
[2018-08-25 05:45] LABS: LYMPHOCYTES % (MANUAL) 3 % (16-48); MONOCYTES % (MANUAL) 2 % (0-11.0); NEUTROPHILS % (MANUAL) 95 (42-76)
[2018-08-25] MEDS: METRONIDAZOLE 500MG/ NS 100ML 500 MG in PREMIX 1 EA IV SCH ×3 (05:57→21:10)
--- NOTE | 2018-08-25 05:57 | NUR ---
RN NOTES D/C LEFT SUBCLAVIAN TLC AND SENT THE TIP TO THE LAB ORDERED.
[2018-08-25 05:59] LABS: D-DIMER 7.78 mg/L(FEU (0.17-0.50)
[2018-08-25] MEDS: INSULIN REGULAR, HUMAN 100 UNIT/ML 3 ML VIAL SQ PRN ×4 (06:20→23:25)
[2018-08-25] MEDS: BLOOD SUGAR DIAGNOSTIC 1 EACH STRIP IN SCH ×4 (06:25→23:20)
[2018-08-25] MEDS: PROPOFOL 100 ML IV PRN ×2 (06:25→17:44)
--- NOTE | 2018-08-25 06:48 | NUR ---
RN NOTES PATIENT REMAINED SEDATED WITH DIPRIVAN. AFEBRILE TROUGHOUT THE SHIFT. RESPONSIVE TO STIMULI. ETT AND VENT SETTING TOLERATED WELL. COLOSTOMY AND MUCUS FISTULA REMAINED INTACT AND PATENT , CINTHIA DRAINED WITH SEEROUS FLUID. GENERALIZED EDEMA , SCROTAL EDEMA PRESENT. IV SITE ON MARIA INES TLC INTACT AND PATENT WITH LEVO, TPN, DIPRIVAN CVP KEPT IN PLACED. KEPT PT CLEAN AND COMFORTABLE IN BED. ALL DUE MEDICINE GIVEN ORDERED/ KEPT PT CLEAN AND DRY.
--- NOTE | 2018-08-25 07:57 | NUR ---
RN OPENING NOTES PT WITH ETT 24 CM AT LIP LINE ON MECHANICAL VENTILATION TOLERATED . CONTINUED WITH SEDATION ,VASO PRESSORS AND TPN ORDERED. PATIENT'S ACCESS SITE IS ON LEFT SUBCLAVIAN REMOVED BY WINCH DRIVER RN NOW WITH MARIA INES PICC LINE OKAY TO USE PER RESEARCH EPIDEMIOLOGIST RUNNING WITH TPN @ 60 ML/HR, DIPRIVAN @ 5 MCG/KG./MIN, LEVOPHED @ 15 MCG/MIN AND CVP CALIBRATED NO REDNESS OR INFILTRATION NOTED TO ACCESS SITE. FEMORAL LINE AND BE REMOVED AND SENT FOR CULTURE. PT WITH WEEPING DUE TO ANASARCA. NGT TO LIS WITH DARK GREENISH OUT PUT, CINTHIA DRAIN INTACT. KEPT CLEAN AND DRY, CALL LIGHT WITHIN EASY REACH, WILL CONTINUE TO MONITOR
[2018-08-25] MEDS: MEROPENEM 500 MG in IV NS 0.9% 100 ML IV SCH ×2 (09:03→21:10)
[2018-08-25] MEDS: Z GUARD REMEDY 2 OZ OINT TP PRN (09:06)
[2018-08-25] MEDS: Z GUARD REMEDY 2 OZ OINT TP SCH (09:13)
--- NOTE | 2018-08-25 09:51 | NUR ---
WOUND CARE CONSULT PATIENT SEEN AND SKIN INTEGRITY ASSESSMENT DONE. PLEASE SEE HAND SHAKER ASSESSMENT IN PCS FOR TODAY. PATIENT CURRENT RISHI AT 12, ALL PRESSURE ULCER PREVENTION MEASURES ARE NOTED TO BE IN PLACE. PATIENT HAS MULTIPLE CO-MORBIDITIES, IS POST OP, PATIENT NOTED TO HAVE BILATERAL UPPER EXTREMITY WEEPING EDEMA. TREATMENT RECOMMENDATIONS MADE, RECOMMEND CONTINUE TURNING AND REPOSITIONING Q 2 HOURS AND BILATERAL HEEL FLOATING. PATIENT IS NOTED TO HAVE HARD CALLUS BROWN DISCOLORATIONS TO THE BILATERAL PLANTAR FEET AND HEELS THAT IS NOTED TO BE POA. WOUND CARE WILL CONTINUE TO FOLLOW. ALL SKIN MANAGEMENT AND TREATMENT PLANS DISCUSSED WITH NURSING AT THE BEDSIDE. 1ST STEP AKANKSHA MATTRESS IN USE. Addendum: 08/25/18 at 0957 by MIGEL ALLEN WNDNU Amended: Links added.
[2018-08-25] MEDS ORDERED: TPN BAG #5 IV PRN ×5 (10:30)
[2018-08-25] MEDS ORDERED: TPN BAG #6 IV PRN ×7 (10:30)
--- NOTE | 2018-08-25 11:09 | NUR ---
ET-TUBE ADVANCED 3CM TO 26 LIP LINE Addendum: 08/25/18 at 1109 by EDWIN PERALTA RT Amended: Links added.
[2018-08-25] MEDS: VANCOMYCIN 0.75 GM in IV D5W 250 ML IV SCH (18:03)
--- NOTE | 2018-08-25 18:59 | NUR ---
RN OPENING NOTES PT WITH ETT 26 CM AT LIP LINE ON MECHANICAL VENTILATION TOLERATED . CONTINUED WITH SEDATION ,VASO PRESSORS AND TPN ORDERED. PATIENT'S ACCESS SITE TO RIGHT FEMORAL ARTERIAL LINE REMOVED THIS AM AT 0940. NOW WITH MARIA INES PICC LINE OKAY TO USE PER PAYROLL TECHNICIAN RUNNING WITH TPN @ 60 ML/HR, DIPRIVAN @ 10 MCG/KG./MIN, LEVOPHED @ 22 MCG/MIN AND CVP CALIBRATED NO REDNESS OR INFILTRATION NOTED TO ACCESS SITE. FEMORAL LINE AND BE REMOVED AND SENT FOR CULTURE. PT WITH WEEPING DUE TO ANASARCA. NGT TO LIS WITH DARK GREENISH OUT PUT, CINTHIA DRAIN INTACT. KEPT CLEAN AND DRY, CALL LIGHT WITHIN EASY REACH, WILL CONTINUE TO MONITOR, ENDORSED TO NEXT SHIFT FOR CONTINUITY OF CARE
--- NOTE | 2018-08-25 19:08 | NUR ---
RECEIVED PT INTUBATED 7.5 ETT SECURED @ 26CM AT THE LIP, NO RESP DISTRESS. PT TOLERATING VENT SETTINGS. SUCTIONED SMALL AMOUNT OF THICK PALE YELLOW SECRETIONS. VENT ALARMS SET AND AUDIBLE. AMBU BAG AT BEDSIDE. ETT SECURE, CUFF ROPE COILING MACHINE OPERATOR. WILL CONTINUE TO MONITOR.
--- NOTE | 2018-08-25 19:30 | NUR ---
WHEEL ALIGNMENT MECHANIC RCD PT W/DX SEPSIS; PERF BOWEL; S/P EXP LAP 08/16; PT IS ON PROPOFOL @ 10 MCK/KG/MIN WITH EPISODES OF WAKING UP; PT DOES NOT FOLLOW COMMANDS OR NOTED MOVING BUE EXTREMITIES. INTUBATED 7.5 @ 26 W/VENT SETTINGS AC 16 550 40%; W/THICK WHITE SECRETIONSNOTED. NSR ON MONITOR. PT ON LEVOPHED AT 20 MCG/MIN. TPN @ 60 ML/HR. DR ANGELES AT BEDSIDE.
[2018-08-25] MEDS: MICAFUNGIN SODIUM 100 MG in IV NS 0.9% 100 ML IV SCH (20:10)
[2018-08-25] MEDS: HYDROGEL DRESSING 90 GM TUBE TP SCH (21:09)
[2018-08-25] MEDS: PANTOPRAZOLE 40 MG VIAL IV SCH (23:20)
[2018-08-26] VITALS (115 sets, daily range): BP systolic 73–106; BP diastolic 46–69
[2018-08-26] MEDS: NOREPINEPHRINE 16 MG in IV D5W 500 ML IV PRN ×2 (02:01→14:09)
[2018-08-26 04:45] LABS: BASOPHILS # (AUTO) 0.1 /CMM (0.0-0.2); BASOPHILS % (AUTO) 0.2 % (0.0-2.0); EOSINOPHILS % (AUTO) 0.1 % (0.0-6.0); HEMATOCRIT 23 % (39-51); HEMOGLOBIN 7.3 g/dL (13.5-17.5); LYMPHOCYTES # (AUTO) 0.7 /CMM (0.8-4.8); LYMPHOCYTES % (AUTO) 1.2 % (20.0-44.0); MEAN CORPUSCULAR HGB CONC 31 g/dl (31.0-36.0); MEAN CORPUSCULAR VOLUME 85 fL (80-96); MONOCYTES # (AUTO) 0.7 /CMM (0.1-1.30); MONOCYTES % (AUTO) 1.2 % (2.0-12.0); NEUTROPHILS # (AUTO) 57.3 /CMM (1.8-8.9); NEUTROPHILS % (AUTO) 97.3 % (43.0-81.0); PLATELET COUNT (AUTO) 107 /CMM (150-450); RED BLOOD CELL COUNT(AUTO) 2.76 MIL/uL (4.5-6.0)
[2018-08-26 05:00] LABS: WHITE BLOOD COUNT (AUTO) 58.9 K/uL (4.3-11.0)
[2018-08-26 05:13] LABS: BAND % (MANUAL) 8 % (0.0-5.0); NEUTROPHILS % (MANUAL) 91 (42-76)
[2018-08-26 05:14] LABS: MONOCYTES % (MANUAL) 1 % (0-11.0)
[2018-08-26 05:16] LABS: CALCIUM, SERUM 7.2 mg/dL (8.5-10.1); MAGNESIUM 1.8 mg/dL (1.8-2.4); PHOSPHORUS 4.3 mg/dL (2.5-4.9); POTASSIUM 3.9 mmol/L (3.5-5.1)
[2018-08-26] MEDS: METRONIDAZOLE 500MG/ NS 100ML 500 MG in PREMIX 1 EA IV SCH ×3 (05:35→21:00)
[2018-08-26] MEDS: BLOOD SUGAR DIAGNOSTIC 1 EACH STRIP IN SCH ×3 (05:35→17:41)
[2018-08-26] MEDS: INSULIN REGULAR, HUMAN 100 UNIT/ML 3 ML VIAL SQ PRN ×3 (05:54→17:49)
[2018-08-26 05:56] LABS: D-DIMER 7.62 mg/L(FEU (0.17-0.50)
[2018-08-26] MEDS: PROPOFOL 100 ML IV PRN ×2 (06:10→23:06)
--- NOTE | 2018-08-26 06:45 | NUR ---
FOOD AND BEVERAGE ASSOCIATE CINTHIA OUTPUT 100 ML NGT LIS 100 ML
--- NOTE | 2018-08-26 07:45 | NUR ---
MATE CHIEF: pt.is sedated with 10mcg/kg/m Diprivan, can open eyes spont., no eyes contact, trace arms activity, no any interactive reaction, rest, no grimacing, SR/ST max 105, on Levophed gtt 26mcg/m now, MAP 69-81, will titrate down, CVP 2-4 over night by report, O2sat. over 97%, no SOB, TPN 60ml/h, NGT to LIS/green drain, colostomies: intact/brown,dark red\liquid stool, CINTHIA: intact/serous drain, WBC 58/will speak with MD, is in room, updated with all above, stated: by Aracelis BP monitoring was for 20 over then BP cuff monitoring, will continue titrate pressor to keep MAP over 65.
--- NOTE | 2018-08-26 08:00 | NUR ---
HYDRAULIC DESIGN ENGINEER: Dvai SWIMMING POOL INSTALLER AND SERVICER is in room, updated with pt.current status, VS, sedation level, Levophed gtt, TPN, I/O, CVP, drains amounts, WBC 58, skin/edema. Pt.cousin called/updated with pt.condition, VS, orders, POC
[2018-08-26] MEDS: MEROPENEM 500 MG in IV NS 0.9% 100 ML IV SCH (08:55)
[2018-08-26] MEDS: HYDROGEL DRESSING 90 GM TUBE TP SCH ×2 (08:56→21:01)
[2018-08-26] MEDS: Z GUARD REMEDY 2 OZ OINT TP SCH (08:56)
--- NOTE | 2018-08-26 09:38 | NUR ---
ACCOUNTING SYSTEMS MANAGER: pt.is without sedation 45 min, can open eyes, no eyes contact, no arms/legs activity, no tracking interaction, rest, no grimacing, RR 20-22, HR 100-102, continue monitoring
--- NOTE | 2018-08-26 09:54 | NUR ---
FELT PAD CUTTER: pt.is with open eyes, no any contact reaction, grimacing, O2sat. over 96%, slightly breath laboring/RR 20-22, HR 100-107, resumed sedation
--- NOTE | 2018-08-26 10:25 | NUR ---
ROOFING SUPERVISOR: pharmacy called: next#6 TPN bag rate is 40ml/h +NS@20ml/hr
[2018-08-26] MEDS: IV NS 0.9% 1,000 ML IV PRN (11:53)
--- NOTE | 2018-08-26 13:49 | NUR ---
TRAINING ASSOCIATE: MAP 67-71, continue titrate Levophed down, SR, O2sat. over 96%, pt.is rest, no SOB, sedated well
--- NOTE | 2018-08-26 15:34 | NUR ---
MANAGER MSW: DIC, Fibrinogen result was sent Addendum: 08/26/18 at 1535 by MAR SCHERER RN Amended: Links added.
[2018-08-26] MEDS: ALBUMIN 25% 25 GM in PREMIX 1 EA IV SCH ×2 (15:37→23:00)
--- NOTE | 2018-08-26 16:19 | NUR ---
FUR TANNER: all PM/skin/wound care is done, colostomies are intact, CINTHIA drain is intact/serous drain, SR, continue titrate Levophed gtt, 16mcg/min now, MAP over 65, O2sat. over 97%, T96.9/warming measures initiated, CVP 3-4, NGT to LIS, spoke with pharmacist Marianne: continue tomorrow next TPN bag rate 40ml/hr + NS@20ml/hr
[2018-08-26 17:41] LABS: HEMOGLOBIN 7.1 g/dL (13.5-17.5)
--- NOTE | 2018-08-26 18:10 | NUR ---
HEAVY EQUIPMENT PLUMBING SUPERVISOR: , Nhung LANG were in room, updated with pt.sedation level/sedation vacation reaction, Levophed gtt, VS, I/O, TPN, IVF, drains/suction amounts, labs, meds, see new orders
[2018-08-26] MEDS: VANCOMYCIN 0.75 GM in IV D5W 250 ML IV SCH (18:21)
--- NOTE | 2018-08-26 19:05 | NUR ---
WINDING RACK OPERATOR NOTES Received patient orally intubated to the vent on AC mode,sedated with Propofol(RASS -3),Levophed drip for BP support to maintain MAP 65>.PICC line via MARIA INES ( 3 ports).TPN 2 40 ml/hr. No movement noted on any extremity,+ cough reflex on suctioning and slight grimace to pain.Not in nay distress.Hypothermic( with hyperthermic blanket applied) ,temp to be monitored continuously via core temp.Colostomy at LLQ ,CINTHIA drain @RLQ to bulb suction. NGT to LCWS with greenish drainage noted.Skin with multiple ecchymosis all over upper extremities, severe generalyzed (4+) edema,scrotal edema. Will closely monitor for any S/S of bleeding,comfort care,needs attended.
--- NOTE | 2018-08-26 19:11 | NUR ---
RECEIVED PT INTUBATED 7.5 ETT SECURED @ 26CM AT THE LIP, NO RESP DISTRESS. PT TOLERATING VENT SETTINGS. PT IS SEDATED, WITH GAG REFLEX . SUCTIONED SMALL AMOUNT OF WHITE THIN SECRETIONS. VENT ALARMS SET AND AUDIBLE. AMBU BAG AT BEDSIDE. ETT SECURE, CUFF ASSISTANT FARM OPERATIONS MANAGER. WILL CONTINUE TO MONITOR.
[2018-08-26] MEDS: MICAFUNGIN SODIUM 100 MG in IV NS 0.9% 100 ML IV SCH (19:46)
[2018-08-26] MEDS: MEROPENEM 1 G in IV NS 0.9% 100 ML IV SCH (21:00)
--- NOTE | 2018-08-26 21:50 | NUR ---
SPUTUM SPECIMEN OBTAINED FOR CULTURE , DEAN VALENZUELA NOTIFIED. SUCTIONED THICK YELLOW SECRETIONS
[2018-08-26] MEDS: PANTOPRAZOLE 40 MG VIAL IV SCH (23:00)
[2018-08-27] VITALS (124 sets, daily range): BP systolic 87–147; BP diastolic 44–81
--- NOTE | 2018-08-27 | NUR ---
SENIOR PLANNING ANALYST NOTES BP LABILE,LEVOPHED TITRATED TO MAP>65.nEURO STATUS UNCHANGED,REMAINS SEDATED. 0400 AM CARE DONE. CINTHIA DRAINING A LOT,NGT STILL DRAINING DARK GREENISH OUTPUT,NO SIGNS AND SYMPTOMS OF ANY BLEEDING.
[2018-08-27] MEDS: BLOOD SUGAR DIAGNOSTIC 1 EACH STRIP IN SCH ×4 (00:11→17:48)
[2018-08-27] MEDS: INSULIN REGULAR, HUMAN 100 UNIT/ML 3 ML VIAL SQ PRN ×4 (00:12→17:26)
[2018-08-27] MEDS ORDERED: TPN BAG #7 IV PRN ×6 (01:00)
[2018-08-27] MEDS: NOREPINEPHRINE 16 MG in IV D5W 500 ML IV PRN ×3 (03:40→22:30)
[2018-08-27] MEDS: METRONIDAZOLE 500MG/ NS 100ML 500 MG in PREMIX 1 EA IV SCH ×3 (04:43→21:00)
[2018-08-27 05:13] LABS: CALCIUM, SERUM 7.4 mg/dL (8.5-10.1); CREATININE 1.9 mg/dL (0.6-1.3); MAGNESIUM 1.9 mg/dL (1.8-2.4); PHOSPHORUS 4.4 mg/dL (2.5-4.9); POTASSIUM 3.7 mmol/L (3.5-5.1)
[2018-08-27 05:21] LABS: BASOPHILS # (AUTO) 0.1 /CMM (0.0-0.2); BASOPHILS % (AUTO) 0.1 % (0.0-2.0); EOSINOPHILS % (AUTO) 0.2 % (0.0-6.0); LYMPHOCYTES # (AUTO) 0.8 /CMM (0.8-4.8); LYMPHOCYTES % (AUTO) 1.5 % (20.0-44.0); MEAN CORPUSCULAR HGB CONC 31 g/dl (31.0-36.0); MEAN CORPUSCULAR VOLUME 83 fL (80-96); MONOCYTES # (AUTO) 0.6 /CMM (0.1-1.30); MONOCYTES % (AUTO) 1.2 % (2.0-12.0); NEUTROPHILS # (AUTO) 47.4 /CMM (1.8-8.9); PLATELET COUNT (AUTO) 98 /CMM (150-450); RED BLOOD CELL COUNT(AUTO) 2.22 MIL/uL (4.5-6.0)
[2018-08-27 05:26] LABS: ALBUMIN 1.2 g/dL (3.4-5.0)
[2018-08-27 05:36] LABS: HEMOGLOBIN 5.8 g/dL (13.5-17.5); WHITE BLOOD COUNT (AUTO) 48.9 K/uL (4.3-11.0)
[2018-08-27 05:37] LABS: HEMATOCRIT 19 % (39-51)
[2018-08-27 05:58] LABS: BAND % (MANUAL) 8 % (0.0-5.0); BASOPHILS % (MANUAL) 1 % (0.0-2.0); LYMPHOCYTES % (MANUAL) 1 % (16-48); MONOCYTES % (MANUAL) 1 % (0-11.0); NEUTROPHILS % (MANUAL) 87 (42-76); PROMYELOCYTES % 2 % (0-0)
[2018-08-27] MEDS: ALBUMIN 25% 25 GM in PREMIX 1 EA IV SCH ×2 (06:19→16:52)
[2018-08-27] MEDS: Z GUARD REMEDY 2 OZ OINT TP SCH (08:01)
[2018-08-27] MEDS: MEROPENEM 1 G in IV NS 0.9% 100 ML IV SCH ×2 (08:01→21:59)
[2018-08-27] MEDS: HYDROGEL DRESSING 90 GM TUBE TP SCH ×2 (08:01→21:57)
--- NOTE | 2018-08-27 09:27 | NUR ---
PER DR MORENO INFAUDREY X2 PRBCS TOTAL VERBAL READBACK DONE
[2018-08-27] MEDS ORDERED: IV NS 0.9% 1,000 ML IV ONE (10:30)
[2018-08-27] MEDS ORDERED: ALBUMIN 25% 25 GM in PREMIX 1 EA IV SCH (11:00)
--- NOTE | 2018-08-27 11:15 | NUR ---
NO ADVERSE REACTIONS NOTED BLOOD TRANSFUSION RATE INCREASED TO 100CC/HOUR
[2018-08-27] MEDS: PROPOFOL 100 ML IV PRN ×2 (11:16→22:30)
--- NOTE | 2018-08-27 12:00 | NUR ---
BLOOD TRANSFUSION RATE INCREASED TO 125 ML/HOUR NO ADVERSE REACTIONS NOTED
[2018-08-27] MEDS: IV NS 0.9% 1,000 ML IV PRN (12:29)
--- NOTE | 2018-08-27 13:51 | NUR ---
NO ADVERSE REACTIONS NOTED WITH SECOND BLOOD TRANSFUSION DURING INITIAL 15 MINS, RATE INCREASED TO 100CC/HOUR
--- NOTE | 2018-08-27 15:03 | NUR ---
BLOOD TRANSFUSION RATE INCREASED TO 125 CC/HOUR NO ADVERSE REACTIONS NOTED
--- NOTE | 2018-08-27 15:52 | NUR ---
PER BOYD ZENG, HEAD [employer], CBC AFTER 1 HOUR VERBAL READBACK DONE
[2018-08-27 17:06] LABS: HEMATOCRIT 25 % (39-51); HEMOGLOBIN 7.8 g/dL (13.5-17.5); MEAN CORPUSCULAR HGB CONC 32 g/dl (31.0-36.0); MEAN CORPUSCULAR VOLUME 86 fL (80-96); PLATELET COUNT (AUTO) 79 /CMM (150-450); RED BLOOD CELL COUNT(AUTO) 2.84 MIL/uL (4.5-6.0)
[2018-08-27 17:34] LABS: WHITE BLOOD COUNT (AUTO) 50.4 K/uL (4.3-11.0)
--- NOTE | 2018-08-27 17:35 | NUR ---
RT END OF THE SHIFT REPORT: PT. 68 Y OLD FEMALE RECEIVED @0700 PT. ORALLY INTUBATED ETT # 7.5 @ 26 CM LIP LINE ON VENT. PT AWAKE NO DISTRESS NOTED. PT TOLERATING VENT SETTINGS. SUX'D FOR SMALL AMT OF THIN WHITE SECRETIONS. EQUAL CHEST RISE NOTED ETT ADJUSTED PER DR. MORENO ORDER PULLED BACK 2 CM TO 24CM VENT ALARMS SET AND AUDIBLE. AMBU BAG AT BEDSIDE. WILL CONTINUE TO MONITOR. REPORT WILL BE PASS TO PM SHIFT.
[2018-08-27 17:46] LABS: BAND % (MANUAL) 5 % (0.0-5.0); MONOCYTES % (MANUAL) 2 % (0-11.0); NEUTROPHILS % (MANUAL) 93 (42-76)
--- NOTE | 2018-08-27 17:47 | NUR ---
RT END OF THE SHIFT REPORT: PT. 68 Y OLD MALE RECEIVED @0700 PT. ORALLY INTUBATED ETT # 7.5 @ 26 CM LIP LINE ON VENT. NO DISTRESS NOTED. PT TOLERATING VENT SETTINGS. SUX'D FOR SMALL AMT OF THIN SECRETIONS. EQUAL CHEST RISE NOTED. ETT ADJUSTED PER DR. MORENO ORDER PULLED BACK 2 CM SECURED AT 24 CM. VENT ALARMS SET AND AUDIBLE. AMBU BAG AT BEDSIDE. WILL CONTINUE TO MONITOR. REPORT WILL BE PASS TO PM SHIFT. Addendum: 08/27/18 at 1748 by MAR BRAND RT Amended: Links added.
--- NOTE | 2018-08-27 18:54 | NUR ---
NO SIGNS OF ACTIVE BLEEDING NOTED THROUGHOUT SHIFT
[2018-08-27] MEDS: MICAFUNGIN SODIUM 100 MG in IV NS 0.9% 100 ML IV SCH (20:00)
--- NOTE | 2018-08-27 22:06 | NUR ---
RECEIVED PT INTUBATED 7.5 ETT @ 24CM AT THE LIP ON VENT. NO RESP DISTRESS. PT TOLERATING VENT SETTINGS. ETT SECURE. SX'D FOR SML AMT OF THICK PALE SECRETIONS. VENT ALARMS SET AND AUDIBLE. AMBU BAG AT BEDSIDE. WILL CONTINUE TO MONITOR. Addendum: 08/27/18 at 2207 by JENNY GARRETT RT Amended: Links added.
[2018-08-27] MEDS: PANTOPRAZOLE 40 MG VIAL IV SCH (22:30)
--- NOTE | 2018-08-27 22:30 | NUR ---
NATURAL RESOURCES FACULTY MEMBER PT SEEN BY ID JESÚS BAUTISTA W/ORDERS TO BECKIE FRAZIER.
[2018-08-28] VITALS (105 sets, daily range): BP systolic 89–113; BP diastolic 46–71
[2018-08-28] MEDS: BLOOD SUGAR DIAGNOSTIC 1 EACH STRIP IN SCH ×5 (00:33→23:59)
[2018-08-28] MEDS: INSULIN REGULAR, HUMAN 100 UNIT/ML 3 ML VIAL SQ PRN ×4 (00:35→17:52)
[2018-08-28] MEDS: ALBUMIN 25% 25 GM in PREMIX 1 EA IV SCH ×2 (00:59→08:28)
[2018-08-28 02:55] LABS: OSMOLALITY,URINE 289 mOS/kg (340-1090)
[2018-08-28 03:26] LABS: URINE SODIUM, RANDOM 6 mmol/l (40-220)
[2018-08-28 04:51] LABS: HEMATOCRIT 22 % (39-51); HEMOGLOBIN 7.3 g/dL (13.5-17.5); MEAN CORPUSCULAR HGB CONC 33 g/dl (31.0-36.0); MEAN CORPUSCULAR VOLUME 85 fL (80-96); PLATELET COUNT (AUTO) 67 /CMM (150-450); RED BLOOD CELL COUNT(AUTO) 2.62 MIL/uL (4.5-6.0)
[2018-08-28 04:52] LABS: WHITE BLOOD COUNT (AUTO) 45.6 K/uL (4.3-11.0)
[2018-08-28 04:57] LABS: CALCIUM, SERUM 7.2 mg/dL (8.5-10.1); CREATININE 1.7 mg/dL (0.6-1.3); PHOSPHORUS 4.7 mg/dL (2.5-4.9); POTASSIUM 3.3 mmol/L (3.5-5.1)
[2018-08-28] MEDS: METRONIDAZOLE 500MG/ NS 100ML 500 MG in PREMIX 1 EA IV SCH ×3 (05:05→20:57)
[2018-08-28 05:16] LABS: BAND % (MANUAL) 14 % (0.0-5.0); EOSINOPHILS % (MANUAL) 1 % (0-4); LYMPHOCYTES % (MANUAL) 4 % (16-48); MONOCYTES % (MANUAL) 1 % (0-11.0); NEUTROPHILS % (MANUAL) 80 (42-76)
[2018-08-28] MEDS ORDERED: VANCOMYCIN 0.75 GM in IV D5W 250 ML IV SCH (06:00)
--- NOTE | 2018-08-28 07:55 | NUR ---
RN OPENING NOTES PT WITH ETT 24 CM AT LIP LINE ON MECHANICAL VENTILATION TOLERATED . CONTINUED WITH SEDATION ,VASO PRESSORS AND TPN ORDERED. PT WITH MARIA INES PICC LINE TPN @ 40 ML/HR, DIPRIVAN @ 10 MCG/KG./MIN, LEVOPHED @ 14 MCG/MIN NS @20CC/HR AND CVP CALIBRATED NO REDNESS OR INFILTRATION NOTED TO ACCESS SITE. PT WITH WEEPING DUE TO ANASARCA. NGT TO LIS WITH DARK GREENISH OUT PUT, CINTHIA DRAIN INTACT. KEPT CLEAN AND DRY, CALL LIGHT WITHIN EASY REACH, WILL CONTINUE TO MONITOR
[2018-08-28] MEDS: MEROPENEM 1 G in IV NS 0.9% 100 ML IV SCH ×2 (08:20→21:51)
[2018-08-28] MEDS: HYDROGEL DRESSING 90 GM TUBE TP SCH ×2 (08:20→20:58)
--- NOTE | 2018-08-28 08:20 | NUR ---
RT PATIENT REC'D ORALLY INTUBATED ON [facility] VENT WITH ORDERED SETTINGS MANUEL WELL. VENT ALARMS CHECKED + AUDIBLE. CUFF PRESSURE CHECKED RETAIL SALES SPECIALIST. B/S DIM COARSE. PATIENT AIRWAY SUCTIONED AND PATENT. SMALL AMT OF PALE SEMI-THICK SECRETIONS. AMBU BAG AT [facility]. Addendum: 08/28/18 at 0826 by CHARU ZAMBRANO RT Amended: Links added.
[2018-08-28 08:45] LABS: ABG BASE EXCESS -4.5 mmol/L; ABG OXYGEN SATURATION 94.8 % (92.0-98.5); ABG PCO2 35.9 mmHg (35.0-45.0); ABG PH 7.371 (7.350-7.450); ABG PO2 78.4 mmHg (75.0-100.0); AaDO2 165.5 mmHg; COHb 1.3 % (0.5-1.5); MetHb 0.4 % (0.0-1.5); O2Hb 93.2 % (94.0-97.0); SITE, ABG Right Radial
[2018-08-28] MEDS ORDERED: TPN BAG #8 IV PRN ×7 (09:30)
[2018-08-28] MEDS: Z GUARD REMEDY 2 OZ OINT TP SCH (11:46)
--- NOTE | 2018-08-28 12:00 | NUR ---
RN NOTES SEDATION VACATION DONE PT WITH STABLE VITALS SIGNS PER DR. MORENO IF PT NOT TACHYPNEIC OKAY TO KEEP OFF SEDATION
[2018-08-28] MEDS: NOREPINEPHRINE 16 MG in IV D5W 500 ML IV PRN (16:18)
--- NOTE | 2018-08-28 16:46 | NUR ---
RN NOTES NOTIFIED GI PEANUT ROASTER JUHI ABOUT COLOSTOMY NOT HAVING STOOL OUTPUT YET, PER PEANUT ROASTER DC OCCULT BLOOD SAMPLE ORDER AT THIS TIME
[2018-08-28] MEDS ORDERED: ALBUMIN 25% 25 GM in PREMIX 1 EA IV ONE (17:30)
[2018-08-28 17:54] LABS: IRON, SERUM 7 ug/dl (50-175)
--- NOTE | 2018-08-28 18:02 | NUR ---
PER DR TIFFANIE SHRESTHA ETT PULLED OUT 2CM AND SECURED AT 22CM TOP LIP Addendum: 08/28/18 at 1803 by CHARU ZAMBRANO RT Amended: Links added.
[2018-08-28] MEDS: IV NS 0.9% 1,000 ML IV PRN (18:20)
[2018-08-28 18:24] LABS: FERRITIN 726 ng/mL (8-388)
[2018-08-28 18:27] LABS: TOTAL IRON BINDING CAPACITY < 36 ug/dl (250-450)
--- NOTE | 2018-08-28 19:40 | NUR ---
RN CLOSING NOTES PT WITH ETT 22 CM AT LIP LINE ON MECHANICAL VENTILATION TOLERATED . CONTINUED WITH SEDATION ,VASO PRESSORS AND TPN ORDERED. PT WITH MARIA INES PICC LINE TPN @ 40 ML/HR, OFF DIPRIVAN SINCE 1114, LEVOPHED @ 12 MCG/MIN NS @20CC/HR AND CVP CALIBRATED NO REDNESS OR INFILTRATION NOTED TO ACCESS SITE. PT WITH WEEPING DUE TO ANASARCA. NGT TO LIS WITH DARK GREENISH OUT PUT, CINTHIA DRAIN INTACT. KEPT CLEAN AND DRY, CALL LIGHT WITHIN EASY REACH, ENDORSED TO NEXT SHIFT FOR CONTINUITY OF CARE
--- NOTE | 2018-08-28 19:56 | NUR ---
PT RECEIVED INTUBATED 7.5 ETT SECURED AT 22CM AT THE LIP. NO RESP DISTRESS, TOLERATING VENT SETTINGS. SX'D FOR MOD AMT OF THICK YELLOW SECRETIONS. VENT ALARMS SET AND AUDIBLE. AMBU BAG AT BEDSIDE. VENT PLUGGED INTO RED OUTLET. WILL CONTINUE TO MONITOR. Addendum: 08/28/18 at 8 by JENNY GARRETT RT Amended: Links added.
[2018-08-28] MEDS: MICAFUNGIN SODIUM 100 MG in IV NS 0.9% 100 ML IV SCH (20:37)
[2018-08-28] MEDS ORDERED: LEVOFLOXACIN 250 MG /D5W 50 ML 50 ML IV ONE (21:56)
[2018-08-28] MEDS: LEVOFLOXACIN 250 MG /D5W 50 ML 250 MG in PREMIX 1 EA IV SCH (22:07)
[2018-08-28] MEDS: PANTOPRAZOLE 40 MG VIAL IV SCH (23:58)
[2018-08-29] VITALS (106 sets, daily range): BP systolic 85–118; BP diastolic 49–75
[2018-08-29] MEDS: METRONIDAZOLE 500MG/ NS 100ML 500 MG in PREMIX 1 EA IV SCH ×2 (05:14→13:41)
[2018-08-29 05:15] LABS: CALCIUM, SERUM 6.5 mg/dL (8.5-10.1); CREATININE 1.4 mg/dL (0.6-1.3)
[2018-08-29] MEDS: BLOOD SUGAR DIAGNOSTIC 1 EACH STRIP IN SCH ×4 (05:15→23:13)
[2018-08-29 05:17] LABS: BASOPHILS # (AUTO) 0.2 /CMM (0.0-0.2); BASOPHILS % (AUTO) 0.4 % (0.0-2.0); EOSINOPHILS % (AUTO) 0.1 % (0.0-6.0); HEMATOCRIT 23 % (39-51); HEMOGLOBIN 7.5 g/dL (13.5-17.5); LYMPHOCYTES # (AUTO) 0.5 /CMM (0.8-4.8); MEAN CORPUSCULAR HGB CONC 32 g/dl (31.0-36.0); MEAN CORPUSCULAR VOLUME 85 fL (80-96); MONOCYTES # (AUTO) 0.3 /CMM (0.1-1.30); MONOCYTES % (AUTO) 0.7 % (2.0-12.0); NEUTROPHILS # (AUTO) 45.5 /CMM (1.8-8.9); NEUTROPHILS % (AUTO) 97.8 % (43.0-81.0); PLATELET COUNT (AUTO) 52 /CMM (150-450); RED BLOOD CELL COUNT(AUTO) 2.71 MIL/uL (4.5-6.0)
[2018-08-29 05:27] LABS: WHITE BLOOD COUNT (AUTO) 46.6 K/uL (4.3-11.0)
[2018-08-29 05:53] LABS: D-DIMER 11.9 mg/L(FEU (0.17-0.50)
[2018-08-29 06:07] LABS: BAND % (MANUAL) 12 % (0.0-5.0); METAMYELOCYTES % 2 % (0-0); MONOCYTES % (MANUAL) 1 % (0-11.0); MYELOCYTES % 3 % (0-0); NEUTROPHILS % (MANUAL) 82 (42-76)
[2018-08-29 06:09] LABS: LYMPHOCYTES % (MANUAL) 0 % (16-48)
--- NOTE | 2018-08-29 07:10 | NUR ---
RN INITIAL NOTES: Rec'd pt awake on bed, not in any distress, A/O x1. On MV via ETT, sating at 99%. On telemonitor, SR 95bpm. Has NGT on L nare on low intermittent suctioning, noted bilious output from the tubing. Has 2 colostomy w/ bag intact. Has CINTHIA drain intact, negative pressure on, noted small amount of sanguineous output. Has MARIA INES PICC line patent & intact w/ TPN x 40 cc/hr, Levo x 14 mcg & NS x 20 cc/hr infusing well. CVP reading at 7. Has FC patent & intact draining to BSB. Safety precaution in place w/ bed locked & in lowest position. Call light w/in reach. Will continue to monitor & attend pt needs.
--- NOTE | 2018-08-29 08:04 | NUR ---
RT PATIENT REC'D ORALLY INTUBATED ON [facility] VENT WITH ORDERED SETTINGS MANUEL WELL. VENT ALARMS CHECKED + AUDIBLE. CUFF PRESSURE CHECKED COMPUTER AIDED DESIGN DESIGNER. B/S DIM COARSE. PATIENT AIRWAY SUCTIONED AND PATENT. SMALL AMT OF PALE SEMI-THICK SECRETIONS. AMBU BAG AT [facility]. Addendum: 08/29/18 at 0804 by CHARU ZAMBRANO RT Amended: Links added.
--- NOTE | 2018-08-29 08:10 | NUR ---
Pt seen & examined by JESÚS Tomlinson & updated about pt condition.
[2018-08-29] MEDS: HYDROGEL DRESSING 90 GM TUBE TP SCH ×2 (08:17→20:40)
[2018-08-29] MEDS: Z GUARD REMEDY 2 OZ OINT TP SCH (08:18)
[2018-08-29] MEDS: MEROPENEM 1 G in IV NS 0.9% 100 ML IV SCH ×2 (08:27→20:39)
--- NOTE | 2018-08-29 08:30 | NUR ---
Pt seen & examined by Dr. Walters. Per MD, may check CVP readings q shift.
--- NOTE | 2018-08-29 09:47 | NUR ---
Pt seen & examined by Dr. Carson & updated about pt status.
[2018-08-29 10:32] LABS: MAGNESIUM 1.7 mg/dL (1.8-2.4); PHOSPHORUS 4.1 mg/dL (2.5-4.9)
[2018-08-29] MEDS: POTASSIUM CL. PREMIX PERIPHER. 50 ML IV SCH ×4 (11:03→16:04)
[2018-08-29] MEDS: NOREPINEPHRINE 16 MG in IV D5W 500 ML IV PRN (11:29)
[2018-08-29] MEDS: INSULIN REGULAR, HUMAN 100 UNIT/ML 3 ML VIAL SQ PRN ×3 (11:33→23:25)
--- NOTE | 2018-08-29 11:42 | NUR ---
Rec'd call from Fiorella (pharmacy), to increase TPN to 60 cc/hr & DC NS x 20 cc/hr.
[2018-08-29] MEDS ORDERED: TPN BAG #9 IV PRN ×7 (12:30)
--- NOTE | 2018-08-29 14:00 | NUR ---
Rec'd call from REY Magana, she stated that she is trying to reach JESÚS Tomlinson. Got her# [phone] & gave it to Davi ESPINOSA.
[2018-08-29] MEDS: NOREPINEPHRINE 16 MG in IV NS 0.9% 500 ML IV PRN (16:05)
[2018-08-29] MEDS ORDERED: PHYTONADIONE INJ 10 MG/1 ML AMPUL SQ ONE (18:00)
--- NOTE | 2018-08-29 18:00 | NUR ---
Pt seen & examined by Dr. Robledo w/ orders made & carried out.
--- NOTE | 2018-08-29 19:00 | NUR ---
RN CLOSING NOTES: Pt is not on any distress. On MV via ETT, sating at 99%. On telemonitor, still SR. NGT on L nare still on low intermittent suctioning w/ 300cc bilious output. 2 colostomy w/ bag kept patent & intact. CINTHIA drain kept patent & intact, negative pressure on. MARIA INES PICC line kept patent & intact w/ TPN x 60 cc/hr, Levo x 14 mcg infusing well. FC kept patent & intact draining to BSB. Kept well rested. Needs attended. Bed kept low & in locked pos. Call light w/in reach. Endorsed to PM RN for ARTURO.
--- NOTE | 2018-08-29 19:30 | NUR ---
CRISIS THERAPIST NOTE PT RECEIVED AWAKE AND ALERT IN BED INTUBATED. ETT 7.5 & 22 @ THE LIP. VENT SETTINGS WELL TOLERATED AND SATURATING WELL. HOB ELEVATED AND ON ASPIRATION PRECAUTIONS. TELE- SR 90'S. BREATHING UNLABORED. IV MARIA INES PICC CLEAN WITH LEVO AND TPN INFUSING AND CVP MONITORING. CINTHIA DRAIN IN PLACE. POLLOCK CATHETER IN PLACE AND DRAINING BY GRAVITY. WILL CONTINUE TO MONITOR.
--- NOTE | 2018-08-29 20:08 | NUR ---
RT PATIENT REC'D ORALLY INTUBATED ON [facility] VENT WITH ORDERED SETTINGS MANUEL WELL. PT IS AWAKE, ALERT, RESPONSIVE TO PAIN, VENT ALARMS CHECKED + AUDIBLE. CUFF PRESSURE CHECKED LIEUTENANT/DEPUTY. B/S DIM COARSE. PATIENT AIRWAY SUCTIONED AND PATENT. SMALL AMT OF PALE SEMI-THICK SECRETIONS. AMBU BAG AT [facility]. VENT PLUGGED IN RED OUTLET. HEAD OF BED AT 30 DEGREES, WILL CONTINUE TO MONITOR. Addendum: 08/29/18 at 2010 by ELVER JOHANSEN RT Amended: Links added.
[2018-08-29] MEDS: LEVOFLOXACIN 250 MG /D5W 50 ML 250 MG in PREMIX 1 EA IV SCH (21:29)
[2018-08-29] MEDS: PANTOPRAZOLE 40 MG VIAL IV SCH (23:13)
[2018-08-30] VITALS (109 sets, daily range): BP systolic 61–105; BP diastolic 39–70
[2018-08-30 04:24] LABS: BASOPHILS # (AUTO) 0.1 /CMM (0.0-0.2); BASOPHILS % (AUTO) 0.1 % (0.0-2.0); EOSINOPHILS % (AUTO) 0.1 % (0.0-6.0); HEMATOCRIT 23 % (39-51); HEMOGLOBIN 7.3 g/dL (13.5-17.5); LYMPHOCYTES # (AUTO) 0.6 /CMM (0.8-4.8); LYMPHOCYTES % (AUTO) 1.2 % (20.0-44.0); MEAN CORPUSCULAR HGB CONC 32 g/dl (31.0-36.0); MEAN CORPUSCULAR VOLUME 87 fL (80-96); MONOCYTES # (AUTO) 0.7 /CMM (0.1-1.30); MONOCYTES % (AUTO) 1.3 % (2.0-12.0); NEUTROPHILS # (AUTO) 53.4 /CMM (1.8-8.9); NEUTROPHILS % (AUTO) 97.3 % (43.0-81.0); RED BLOOD CELL COUNT(AUTO) 2.65 MIL/uL (4.5-6.0)
[2018-08-30 04:36] LABS: CALCIUM, SERUM 7.4 mg/dL (8.5-10.1); CREATININE 1.4 mg/dL (0.6-1.3); POTASSIUM 3.6 mmol/L (3.5-5.1)
[2018-08-30 04:37] LABS: PLATELET COUNT (AUTO) 47 /CMM (150-450); WHITE BLOOD COUNT (AUTO) 54.9 K/uL (4.3-11.0)
[2018-08-30 04:54] LABS: BAND % (MANUAL) 10 % (0.0-5.0); LYMPHOCYTES % (MANUAL) 2 % (16-48); MONOCYTES % (MANUAL) 2 % (0-11.0); NEUTROPHILS % (MANUAL) 86 (42-76)
[2018-08-30 05:55] LABS: D-DIMER 15.8 mg/L(FEU (0.17-0.50)
[2018-08-30] MEDS: BLOOD SUGAR DIAGNOSTIC 1 EACH STRIP IN SCH ×4 (05:55→23:46)
[2018-08-30] MEDS: INSULIN REGULAR, HUMAN 100 UNIT/ML 3 ML VIAL SQ PRN ×3 (06:03→17:18)
--- NOTE | 2018-08-30 06:56 | NUR ---
MICROSTRATEGY ARCHITECT NOTE PT REMAINED STABLE DURING SHIFT. NO ACUTE DISTRESS NOTED. VENT SETTINGS WELL TOLERATED. SUCTIONED NEEDED. REPOSITIONED Q2H. HOB ELEVATED. ALL NEEDS ATTENDED TO PROMPTLY. KEPT CLEAN AND DRY. WILL ENDORSE TO NEXT SHIFT FOR CONTINUITY OF CARE.
--- NOTE | 2018-08-30 07:10 | NUR ---
RN INITIAL NOTES: Rec'd pt asleep on bed, not in any distress. On MV via ETT, sating at 99%. On telemonitor, Has NGT on L nare on low intermittent suctioning, noted bilious output from the tubing. Has 2 colostomy w/ bag intact. Has CINTHIA drain intact, negative pressure on, noted small amount of sanguineous output. Has MARIA INES PICC line patent & intact w/ TPN x 60 cc/hr & Levo x 18 mcg infusing well. CVP reading at 6. Has FC patent & intact draining to BSB. Safety precaution in place w/ bed locked & in lowest position. Call light w/in reach. Will continue to monitor & attend pt needs.
--- NOTE | 2018-08-30 07:20 | NUR ---
Pt seen & examined by Dr. Walters. Addendum: 08/30/18 at 1631 by NAEL COLEMAN RN Addendum: Per Dr. Walters, titrate Levo to keep MAP >60.
--- NOTE | 2018-08-30 07:30 | NUR ---
RT PATIENT REC'D ORALLY INTUBATED ON [place] VENT WITH ORDERED SETTINGS MANUEL WELL. VENT ALARMS CHECKED + AUDIBLE. CUFF PRESSURE CHECKED PROFESSOR OF SOCIAL WORK. B/S DIM COARSE. PATIENT AIRWAY SUCTIONED AND PATENT. SMALL AMT OF PALE SEMI-THICK SECRETIONS. AMBU BAG AT [facility]. Addendum: 08/30/18 at 1123 by CHARU ZAMBRANO RT Amended: Links added.
[2018-08-30] MEDS ORDERED: TPN BAG #10 IV PRN ×6 (08:00)
[2018-08-30 08:09] LABS: MAGNESIUM 1.8 mg/dL (1.8-2.4)
[2018-08-30] MEDS: NOREPINEPHRINE 16 MG in IV NS 0.9% 500 ML IV PRN ×2 (08:16→22:18)
[2018-08-30] MEDS: MEROPENEM 1 G in IV NS 0.9% 100 ML IV SCH ×2 (08:30→17:10)
[2018-08-30] MEDS: HYDROGEL DRESSING 90 GM TUBE TP SCH ×2 (08:30→21:46)
[2018-08-30] MEDS: Z GUARD REMEDY 2 OZ OINT TP SCH (08:31)
--- NOTE | 2018-08-30 09:00 | NUR ---
Pt seen & examined by Dr. Carson & updated about condition.
[2018-08-30 09:10] LABS: ABG BASE EXCESS -4.5 mmol/L; ABG OXYGEN SATURATION 95.4 % (92.0-98.5); ABG PCO2 30.6 mmHg (35.0-45.0); ABG PH 7.416 (7.350-7.450); ABG PO2 84.8 mmHg (75.0-100.0); AaDO2 165.2 mmHg; COHb 0.9 % (0.5-1.5); MetHb 0.4 % (0.0-1.5); O2Hb 94.2 % (94.0-97.0); SITE, ABG Right Radial
[2018-08-30] MEDS ORDERED: TPN BAG #11 IV PRN ×5 (11:30)
--- NOTE | 2018-08-30 16:00 | NUR ---
Pt seen & examined by JESÚS Nolan & was able to talk to the REY Izzy over the phone.
[2018-08-30] MEDS ORDERED: ALBUMIN 25% 25 GM in PREMIX 1 EA IV ONE (16:30)
--- NOTE | 2018-08-30 16:31 | NUR ---
Per notes of Dr. Carson to give Albumin & check albumin level, clarified w/ MD & ordered give Albumin 25 gm IV x 1 dose.
--- NOTE | 2018-08-30 18:00 | NUR ---
Per chemical engineering technologist Cesar, he rec'd call from REY Magana & stated that pt's step father Oziel will come & visit pt darrell, okay to give information.
--- NOTE | 2018-08-30 18:51 | NUR ---
RN CLOSING NOTES: Pt is not on any distress. On MV via ETT, sating at 100%. On telemonitor, ST. NGT on L nare still on low intermittent suctioning w/ 350cc bilious output. 2 colostomy w/ bag kept patent & intact. CINTHIA drain kept patent & intact, negative pressure on. MARIA INES PICC line kept patent & intact w/ TPN x 60 cc/hr, Levo x 20 mcg infusing well. FC kept patent & intact draining to BSB. Kept well rested. Needs attended. Bed kept low & in locked pos. Call light w/in reach. Endorsed to PM RN for ARTURO. Oziel (step dad) visited pt.
--- NOTE | 2018-08-30 19:30 | NUR ---
SCHOOL PSYCHOLOGICAL EXAMINER NOTE PT RECEIVED AWAKE AND ALERT IN BED INTUBATED. ETT 7.5 & 22 @ THE LIP. VENT SETTINGS WELL TOLERATED AND SATURATING WELL. HOB ELEVATED AND ON ASPIRATION PRECAUTIONS. TELE- ST 114. BREATHING UNLABORED. IV MARIA INES PICC CLEAN WITH LEVO AND TPN INFUSING AND CVP MONITORING. CINTHIA DRAIN IN PLACE. POLLOCK CATHETER IN PLACE AND DRAINING BY GRAVITY. WILL CONTINUE TO MONITOR.
[2018-08-30] MEDS: LEVOFLOXACIN 500 MG /D5W 100ML 500 MG in PREMIX 1 EA IV SCH (21:46)
[2018-08-30] MEDS: PANTOPRAZOLE 40 MG VIAL IV SCH (23:46)
[2018-08-31] VITALS (103 sets, daily range): BP systolic 54–126; BP diastolic 34–80
[2018-08-31] MEDS: INSULIN REGULAR, HUMAN 100 UNIT/ML 3 ML VIAL SQ PRN ×4 (00:27→23:37)
[2018-08-31] MEDS: MEROPENEM 1 G in IV NS 0.9% 100 ML IV SCH ×3 (00:30→17:52)
[2018-08-31 05:05] LABS: CALCIUM, SERUM 7.4 mg/dL (8.5-10.1); CREATININE 1.5 mg/dL (0.6-1.3); MAGNESIUM 1.7 mg/dL (1.8-2.4); PHOSPHORUS 3.9 mg/dL (2.5-4.9); POTASSIUM 3.9 mmol/L (3.5-5.1)
[2018-08-31 05:20] LABS: BASOPHILS # (AUTO) 0.1 /CMM (0.0-0.2); BASOPHILS % (AUTO) 0.2 % (0.0-2.0); EOSINOPHILS % (AUTO) 0.2 % (0.0-6.0); HEMATOCRIT 22 % (39-51); LYMPHOCYTES # (AUTO) 0.9 /CMM (0.8-4.8); LYMPHOCYTES % (AUTO) 1.6 % (20.0-44.0); MEAN CORPUSCULAR HGB CONC 31 g/dl (31.0-36.0); MEAN CORPUSCULAR VOLUME 86 fL (80-96); MONOCYTES # (AUTO) 0.8 /CMM (0.1-1.30); MONOCYTES % (AUTO) 1.5 % (2.0-12.0); NEUTROPHILS # (AUTO) 53.3 /CMM (1.8-8.9); NEUTROPHILS % (AUTO) 96.5 % (43.0-81.0); PLATELET COUNT (AUTO) 58 /CMM (150-450); RED BLOOD CELL COUNT(AUTO) 2.57 MIL/uL (4.5-6.0)
[2018-08-31 05:24] LABS: WHITE BLOOD COUNT (AUTO) 55.2 K/uL (4.3-11.0)
[2018-08-31 05:48] LABS: BAND % (MANUAL) 3 % (0.0-5.0); LYMPHOCYTES % (MANUAL) 2 % (16-48); MONOCYTES % (MANUAL) 2 % (0-11.0); NEUTROPHILS % (MANUAL) 93 (42-76)
[2018-08-31] MEDS: BLOOD SUGAR DIAGNOSTIC 1 EACH STRIP IN SCH ×4 (06:18→23:36)
[2018-08-31 06:29] LABS: D-DIMER 14.56 mg/L(FEU (0.17-0.50)
--- NOTE | 2018-08-31 07:24 | NUR ---
RT PT RECEIVED ORALLY INTUBATED WITH A 7.5 ETT SECURED AT 22CM AT THE LIP LINE, PT IS ON VENT WITH NOTED SETTINGS. PT IS AWAKE AND ALERT. VENT ALARMS ARE SET AND AUDIBLE WITH BVM BY BEDSIDE. INSPECTOR GENERAL CUFF PRESSURE NOTED. VENT IS PLUGGED INTO RED OUTLET. SX'D SMALL THIN WHITE/CLEAR SECRETIONS. NO RESPIRATORY DISTRESS NOTED AT THIS TIME, WILL CONTINUE TO MONITOR. Addendum: 08/31/18 at 1027 by FEDERICO MUNGUIA RT Amended: Links added.
--- NOTE | 2018-08-31 07:30 | NUR ---
BENITA RN NOTE PT RECEIVED AWAKE AND ALERT IN BED INTUBATED WITH ETT 7.5 & 22 BY THE LIP. CURRENT VENT SETTINGS WELL TOLERATED AND SATURATING 100%. HOB ELEVATED AT 35 DEGREE. ON INFECTION PREVENTION SPECIALIST ST HR 109. RESPIRATION EVEN AND UNLABORED. MARIA INES PICC LINE NOTED INTACT AND PATENT WITH 3 PORTS INFUSING WITH LEVOPHED @26MCG/MIN AND TPN INFUSING @60ML/HR AND CVP AT 6. CINTHIA DRAIN IN PLACE NOTED WITH SANGUINEOUS DRAINAGE. POLLOCK CATHETER IN PLACE, DRAINING URINE BY GRAVITY. NEEDS ANTICIPATED. OFFLOADED ALL EXTREMITIES WITH PILLOWS. WILL CONTINUE TO MONITOR.
--- NOTE | 2018-08-31 07:58 | NUR ---
MANAGER REVIEW NOTE PT REMAINED STABLE DURING SHIFT. NO ACUTE DISTRESS NOTED. ALL NEEDS ATTENDED TO PROMPTLY. VENT SETTINGS WELL TOLERATED. HOB ELEVATED. KEPT CLEAN AND DRY. REPOSITIONED Q2H. RECEIVED CRITICAL VALUE ALBUMIN 1.2. NOTIFIED WITH ORDERS TO ENDORSE TO NEXT SHIFT.
--- NOTE | 2018-08-31 08:44 | NUR ---
BENITA RN NOTE: SEEN BY DR. MORENO IN THE ROOM AND GAVE MD AN UPDATE REGARDING THE PATIENT'S CONDITION. MD WITH ORDER FOR A 1 TIME DOSE OF ALBUMIN 25%. ORDER, NOTED AND CARRIED OUT.
[2018-08-31] MEDS ORDERED: ALBUMIN 25% 12.5 GM/50 ML BOTTLE IV ONE (09:00)
[2018-08-31 09:06] LABS: ABG BASE EXCESS -1.3 mmol/L; ABG OXYGEN SATURATION 96.2 % (92.0-98.5); ABG PCO2 36.1 mmHg (35.0-45.0); ABG PH 7.422 (7.350-7.450); AaDO2 158.7 mmHg; COHb 2.1 % (0.5-1.5); MetHb 0.2 % (0.0-1.5); PEEP,BG 0 cm H2O; SITE, ABG Right Radial; VT, ABG 550 mL
[2018-08-31] MEDS: NOREPINEPHRINE 16 MG in IV NS 0.9% 500 ML IV PRN ×2 (09:26→20:04)
[2018-08-31] MEDS: HYDROGEL DRESSING 90 GM TUBE TP SCH ×2 (09:42→21:11)
[2018-08-31] MEDS: Z GUARD REMEDY 2 OZ OINT TP SCH (09:43)
[2018-08-31] MEDS ORDERED: ALBUMIN 25% 12.5 GM in PREMIX 1 EA IV ONE (10:00)
[2018-08-31] MEDS ORDERED: PHYTONADIONE INJ 10 MG/1 ML AMPUL SQ ONE (10:00)
[2018-08-31] MEDS ORDERED: ACETAMINOPHEN 325 MG TABLET PO ONE (10:00)
[2018-08-31] MEDS ORDERED: diphenhydrAMINE HCL 50 MG/ML VIAL IV PRN (10:00)
--- NOTE | 2018-08-31 10:01 | NUR ---
BENITA RN NOTE: SPOKE WITH MARGARET FROM THE PHARMACY AND MADE HER AWARE ABOUT THE ALBUMIN 25% IV X 1 ORDER. PER MARGARET, SHE WILL SEND THE DOSE OF ALBUMIN 25% TO THE UNIT.
--- NOTE | 2018-08-31 10:10 | NUR ---
KEVIN was informed by ICU CRJuan Manuel Gallegos that pt's DPOA Izzy wanted pt's sister to take over medical decision making. KEVIN contacted pt's DPOA Izzy Brewster (cousin) and inquired if she was going to transfer medical making decisions to pt's sister Arielle. Izzy informed KEVIN that it was a thought and she hasn't had the time to speak to Arielle as of yet but is planning to do so. However, Izzy informed KEVIN that as of now she is still the DPOA and will be making medical decision on behalf of the patient. KEVIN also asked Izzy to send a copy of DPOA. KEVIN updated ROGELIO Gallegos with the aforementioned information.
[2018-08-31] MEDS: HYDROCORTISONE SOD SUCCINATE 100 MG/2 ML VIAL IV SCH ×3 (10:46→17:52)
--- NOTE | 2018-08-31 13:21 | NUR ---
BENITA RN NOTE: RECEIVED AN ORDER FROM DR. ANGELES TO CHANGE THE ROUTE FOR TYLENOL PRIOR TO BLOOD TRANSFUSION. ORDER, NOTED AND CARRIED OUT.
[2018-08-31] MEDS ORDERED: ACETAMINOPHEN 650 MG/SUPP.RECT RC ONE (13:30)
[2018-08-31] MEDS ORDERED: TPN BAG #12 IV PRN ×7 (15:00)
[2018-08-31] MEDS ORDERED: TPN BAG #13 IV PRN ×4 (15:00)
[2018-08-31] MEDS ORDERED: FUROSEMIDE 20 MG/2 ML VIAL IV ONE ×2 (15:30→22:00)
--- NOTE | 2018-08-31 16:00 | NUR ---
BENITA RN NOTE: SPOKE WITH JESÚS DE OLIVEIRA AND MADE HER AWARE THAT THE PATIENT WAS STILL DUE FOR A 1 UNIT PRBC INFUSION AT THIS TIME. AND THE (R) UA PICC LINE WITH 3 PORTS WAS NOTED INFUSING WITH LEVOPHED AND TPN AND THE 3RD PORT WILL BE FOR THE BLOOD TRANSFUSION. TECHNICAL SUPPORT DIRECTOR WAS MADE AWARE THAT THE PATIENT WILL BE DELAYED WITH THE ALBUMIN ADMINISTRATION. SHE WAS OK WITH IT. AND SHE MADE IT CLEAR THAT SHE WANTED THE LASIX IVP GIVEN AFTER THE LAST BOTTLE OF ALBUMIN. WILL RELAY THIS MESSAGE TO THE PM SHIFT NURSE.
--- NOTE | 2018-08-31 17:50 | NUR ---
BENITA RN NOTE: PATIENT WAS DONE WITH HIS BLOOD TRANSFUSION AND NO REACTION WAS NOTED DURING THE 1ST MINUTES UNTIL BLOOD TRANSFUSION WAS DONE. PATIENT TOLERATED IT.
[2018-08-31] MEDS: ALBUMIN 25% 25 GM in PREMIX 1 EA IV SCH ×3 (18:38→20:15)
--- NOTE | 2018-08-31 19:35 | NUR ---
BENITA RN NOTE: REPORT GIVEN TO PM SHIFT NURSE AND PATIENT HAS NO CHANGE OF CONDITION NOTED DURING THE SHIFT. EMPHASIZED TO PM NURSE THAT PATIENT STILL RECEIVING ALBUMIN AND WILL NEED TO CONTINUE TO INFUSE 2 MORE SETS OF ALBUMIN BOTTLES. AND PER JESÚS DE OLIVIERA SHE WANTED THE PATIENT TO RECEIVE THE LASIX X1 AFTER THE LAST DOSE OF IV ALBUMIN.
--- NOTE | 2018-08-31 20:03 | NUR ---
RECEIVED PT INTUBATED 7.5 ETT SECURED AT 22CM AT THE LIP. PT TOLERATING VENT SETTINGS. SX'D FOR MOD AMT OF YELLOW SECRETIONS. ETT SECURE, CUFF CORPORATE DIRECTOR OF PHARMACY. VENT ALARMS SET AND AUDIBLE. AMBU BAG AT BEDSIDE. VENT PLUGGED INTO RED OUTLET. WILL CONTINUE TO MONITOR. Addendum: 08/31/18 at 2004 by JENNY GARRETT RT Amended: Links added.
[2018-08-31] MEDS: LEVOFLOXACIN 500 MG /D5W 100ML 500 MG in PREMIX 1 EA IV SCH (21:11)
[2018-08-31] MEDS: PANTOPRAZOLE 40 MG VIAL IV SCH (22:19)
[2018-09-01] VITALS (111 sets, daily range): BP systolic 81–130; BP diastolic 51–90
[2018-09-01] MEDS: MEROPENEM 1 G in IV NS 0.9% 100 ML IV SCH ×3 (00:06→20:53)
[2018-09-01 04:15] LABS: BASOPHILS # (AUTO) 0.1 /CMM (0.0-0.2); BASOPHILS % (AUTO) 0.2 % (0.0-2.0); EOSINOPHILS % (AUTO) 0.1 % (0.0-6.0); LYMPHOCYTES # (AUTO) 0.9 /CMM (0.8-4.8); LYMPHOCYTES % (AUTO) 1.7 % (20.0-44.0); MEAN CORPUSCULAR HGB CONC 32 g/dl (31.0-36.0); MEAN CORPUSCULAR VOLUME 86 fL (80-96); MONOCYTES # (AUTO) 0.5 /CMM (0.1-1.30); MONOCYTES % (AUTO) 0.9 % (2.0-12.0); NEUTROPHILS % (AUTO) 97.1 % (43.0-81.0); PLATELET COUNT (AUTO) 54 /CMM (150-450); RED BLOOD CELL COUNT(AUTO) 2.38 MIL/uL (4.5-6.0)
[2018-09-01 04:33] LABS: HEMATOCRIT 20 % (39-51)
[2018-09-01 04:34] LABS: HEMOGLOBIN 6.5 g/dL (13.5-17.5); WHITE BLOOD COUNT (AUTO) 53.6 K/uL (4.3-11.0)
[2018-09-01 04:39] LABS: ALBUMIN 1.8 g/dL (3.4-5.0); ALKALINE PHOSPHATASE 114 U/L (46-116); ASPARTATE AMINOTRANSFERASE 30 U/L (15-37); BILIRUBIN,DIRECT 2.9 mg/dL (0.0-0.2); BILIRUBIN,TOTAL 3.6 mg/dL (0.2-1.0); CALCIUM, SERUM 7.9 mg/dL (8.5-10.1); CARBON DIOXIDE 22 mmol/L (21-32); CHLORIDE 100 mmol/L (98-107); CREATININE 1.7 mg/dL (0.6-1.3); GLUCOSE 208 mg/dL (74-106); MAGNESIUM 1.9 mg/dL (1.8-2.4); PHOSPHORUS 4.1 mg/dL (2.5-4.9); SODIUM SERUM 133 mmol/L (136-145); TOTAL PROTEIN, SERUM 4.1 g/dL (6.4-8.2)
[2018-09-01 05:11] LABS: UREA NITROGEN, BLOOD 77 mg/dL (7-18)
[2018-09-01 05:13] LABS: ALANINE AMINOTRANSFERASE < 6 U/L (12-78)
[2018-09-01] MEDS: BLOOD SUGAR DIAGNOSTIC 1 EACH STRIP IN SCH ×3 (06:02→17:09)
[2018-09-01] MEDS: NOREPINEPHRINE 16 MG in IV NS 0.9% 500 ML IV PRN ×2 (06:02→16:13)
[2018-09-01] MEDS: INSULIN REGULAR, HUMAN 100 UNIT/ML 3 ML VIAL SQ PRN ×3 (06:09→17:09)
[2018-09-01 06:27] LABS: BAND % (MANUAL) 3 % (0.0-5.0); LYMPHOCYTES % (MANUAL) 1 % (16-48); MONOCYTES % (MANUAL) 1 % (0-11.0); NEUTROPHILS % (MANUAL) 95 (42-76)
--- NOTE | 2018-09-01 07:15 | NUR ---
RECEIVED CARE OF PATIENT FROM RN NAYAN. PATIENT ETT 7.01/18 WITH VENT SETTINGS PER ORDER. PATIENT AWAKE AND FOLLOWS COMMANDS. UNABLE TO SQUEEZE HANDS ON COMMAND AT THIS TIME. PICC C/D/I/P WITH GOOD BLOOD RETURN. POLLOCK CATH INTACT PATENT DRAINING TO GRAVITY. NG TUBE TO LIS WITH GREEN OUTPUT. CINTHIA DRAIN C/D/I WITH NO CHANGE IN FLUID TYPE. COLOSTOMY AND DRAINAGE COLLECTION POUCH C/D/I/P. PER RN NO OUTPUT- VERY SLIGHT FLUID OUTPUT SIMILAR TO CINTHIA DRAIN FLUID. ABDOMINAL INCISION DRESSING C/D/I WITH BARBIE IN PLACE AND APPROXIMATED. SAFETY, SKIN, ASPIRATION PRECAUTIONS IN PLACE AND WILL MONITOR. PATIENT NOTED TO BE WEEPING FROM BUE KEEPING CLEAN AND DRY ABLE
--- NOTE | 2018-09-01 08:16 | NUR ---
DIESEL ELECTRICIAN NOTE CRITICAL LAB RESULTS H/H 6.5. INFORMED RADIO ELECTRICIAN DR ALEGRIA WITH ORDERS TO GIVE 1 UNIT OF PRBC. ORDERS NOTED AND CARRIED. CONTINUITY OF CARE ENDORSED TO THE NEXT SHIFT.
--- NOTE | 2018-09-01 09:00 | NUR ---
DR MORENO AT BEDSIDE. PER MD HEREDIA TO TITRATE LEVO FOR SBP 85 OR ABOVE.
[2018-09-01] MEDS: HYDROCORTISONE SOD SUCCINATE 100 MG/2 ML VIAL IV SCH ×3 (09:15→17:08)
[2018-09-01] MEDS: HYDROGEL DRESSING 90 GM TUBE TP SCH ×2 (09:15→20:53)
--- NOTE | 2018-09-01 10:47 | NUR ---
PHARMACY WESTLEY AWARE #13 TPN BAG HANGING. PER PHARMACIST OKAY TO HANG #12 AFTER THIS ONE COMPLETED
[2018-09-01] MEDS: Z GUARD REMEDY 2 OZ OINT TP SCH (11:02)
--- NOTE | 2018-09-01 11:56 | NUR ---
ALVINO AT BEDSIDE. UPDATED ON PATIENT CONDITION. NO NEW ORDERS. NO LASIX NEEDED S/P PRBC
[2018-09-01] MEDS ORDERED: TPN BAG #14 IV PRN ×4 (12:30)
--- NOTE | 2018-09-01 16:00 | NUR ---
SPOKE WITH DR SARMIENTO AND PER PATIENT IS OKAY FOR CT WITH CONTRAST. MD NOTIFIED ON COLOSTOMY SITE APPEARANCE; PER VISUALIZED THIS AM ON ROUNDING AND PER MD HEALING WELL.
--- NOTE | 2018-09-01 18:00 | NUR ---
DR ANGELES AT BEDSIDE. NOTIFIED MD SARMIENTO STATES CT CONTRAST OK. PER MD NEED TO CLARIFY IF ORAL CONTRAST OKAY SINCE PATIENT ON LIS NG TUBE. WOULD ALSO LIKE CLARIFICATION WITH NEPHRO SINCE BUN/CR INCREASING; AND DR WOULD LIKE PATIENT STARTED ON NS AT 100ML.HOUR. MESSAGE LEFT FOR DR JOHN.
--- NOTE | 2018-09-01 18:44 | NUR ---
S/P 2 UNITS PRBC PATIENT TOLERATED WELL. CVP AT THIS TIME 6. TOLERATING VENT SETTINGS. TOTAL OUTPUT: CINTHIA DRAIN 60ML. POLLOCK CATH 250ML. COLOSTOMY 10ML. AND NG TUBE 300 ML. PATIENT LEVO NEEDS DECREASED THROUGHOUT DAY; SEE SPREADSHEET. S/P COLOSTOMY, INCISION, MUCOUS FISTULA, AND CINTHIA DRAIN DRESSING CHANGES ALL C/D/I. IV SITE C/D/I/P AND GOOD BLOOD RETURN. AFEBRILE TODAY WITH PRN WARMING BLANKET S/T DECREASED TEMP LOWEST 96.8. PATIENT DENIES PAIN. SAFETY, SKIN, ASPIRATION PRECAUTIONS IN PLACE THROUGHOUT DAY. ALL DUE MEDS GIVEN AND ALL NEEDS ASSESSED AND MET.
--- NOTE | 2018-09-01 19:12 | NUR ---
SPOKE WITH DR RAMOS AND PER MD WILL CHECK AM LABS AND DECIDE IF PATIENT ABLE TO HAVE CONTRAST CT AND IF IVF CAN BE GIVEN PRIOR. REPORT GIVEN TO HIRA. AWARE TO F/U WITH DR SARMIENTO IF OK FOR ORAL CONTRAST FOR CT. AND NEXT TPN IS #14 PER PHARMACY
--- NOTE | 2018-09-01 19:32 | NUR ---
PT RECEIVED ORALLY INTUBATED WITH A 7.5 ETT SECURED AT 22CM AT THE LIP LINE, PT IS ON VENT WITH NOTED SETTINGS. PT IS AWAKE AND RESPONSIVE TO TACTILE STIMULI. VENT ALARMS ARE SET AND AUDIBLE WITH AMBU BAG BY BEDSIDE. SPRING COILING MACHINE SETTER CUFF PRESSURE NOTED. VENT IS PLUGGED INTO RED OUTLET. SUCTIONED MODERATE AMOUNT OF YELLOW THICK SECRETIONS. WILL CONTINUE TO MONITOR THE PT.
--- NOTE | 2018-09-01 19:40 | NUR ---
RN NOTES RECEIVED PT. AWAKE RESPONSIVE TO TACTILE STIMULI. NO SOB. WITH ETT 7.5, 22CM AT LIP CONNECTED TO VENT SETTING OF AC 16, TV 550, FIO2 40% NO PEEP. PT FOLLOWS COMMAND WHEN ASKED TO SQUEEZE HAND. NO ACUTE RESPIRATORY DISTRESS. TELE MONITOR REVEALS ST 100'S. ZERO FLACC. AFEBRILE. 97.5 IN CORE TEMP. RHONCHI THROUGHOUT THE LUNGS. SUCTIONED WITH SMALL THICK YELLOWISH SECRETION. PRESENT WITH ANASARCA AND WEEPING ALL OVER THE BODY. LNGT ON LIS W/ BILIOUS OUTPUT. ABDOMINAL SURGICAL INCISION SITE HEALED, CINTHIA DRAINED WITH SANGUINOUS OUTPUT, COLOSTOMY BAG AND COLLECTION BAG INTACT AND PATENT. F/C DRAINED VIA GRAVITY WITH SNOIA COLOR URINE. PATIENT IV SITE ON MARIA INES TLC RUNNING WITH LEVO @ 8 MCG/MIN TPN @ 60 ML/HR AND CVP @ 2 CALIBRATED . ALL LINES ARE INTACT AND PATENT. WITH STRONG RADIAL AND PEDAL PULSE. KEPT PT CLEAN AND COMFORTABLE IN BED. TURNED AND REPOSITIONED AND REDUCED PRESSURE TO BONY PROMINENCE AREA. WILL CONTINUE TO MONITOR.
[2018-09-01] MEDS: LEVOFLOXACIN 250 MG /D5W 50 ML 250 MG in PREMIX 1 EA IV SCH (20:43)
[2018-09-01] MEDS: PANTOPRAZOLE 40 MG VIAL IV SCH (23:12)
[2018-09-02] VITALS (70 sets, daily range): BP systolic 79–120; BP diastolic 51–79
[2018-09-02] MEDS: BLOOD SUGAR DIAGNOSTIC 1 EACH STRIP IN SCH ×5 (00:23→23:33)
[2018-09-02] MEDS: INSULIN REGULAR, HUMAN 100 UNIT/ML 3 ML VIAL SQ PRN ×5 (00:25→23:43)
--- NOTE | 2018-09-02 02:36 | NUR ---
RN NOTES BED BATH DONE AND WOUND DRESSING CHANGED. PATIENT TOLERATED WELL WITHOUT RESPIRATORY DISTRESS. TURNED AND REPOSITIONED PATIENT.
[2018-09-02 04:32] LABS: BASOPHILS # (AUTO) 0.1 /CMM (0.0-0.2); BASOPHILS % (AUTO) 0.1 % (0.0-2.0); HEMATOCRIT 30 % (39-51); HEMOGLOBIN 9.5 g/dL (13.5-17.5); LYMPHOCYTES # (AUTO) 0.8 /CMM (0.8-4.8); LYMPHOCYTES % (AUTO) 1.3 % (20.0-44.0); MEAN CORPUSCULAR HGB CONC 32 g/dl (31.0-36.0); MEAN CORPUSCULAR VOLUME 87 fL (80-96); MONOCYTES # (AUTO) 0.7 /CMM (0.1-1.30); MONOCYTES % (AUTO) 1.1 % (2.0-12.0); NEUTROPHILS # (AUTO) 57.5 /CMM (1.8-8.9); NEUTROPHILS % (AUTO) 97.5 % (43.0-81.0); RED BLOOD CELL COUNT(AUTO) 3.39 MIL/uL (4.5-6.0)
[2018-09-02 04:49] LABS: CALCIUM, SERUM 7.6 mg/dL (8.5-10.1); CREATININE 1.7 mg/dL (0.6-1.3); MAGNESIUM 1.9 mg/dL (1.8-2.4); PHOSPHORUS 3.9 mg/dL (2.5-4.9); POTASSIUM 3.7 mmol/L (3.5-5.1)
[2018-09-02 05:17] LABS: PLATELET COUNT (AUTO) 45 /CMM (150-450)
[2018-09-02 05:18] LABS: BAND % (MANUAL) 5 % (0.0-5.0); LYMPHOCYTES % (MANUAL) 2 % (16-48); METAMYELOCYTES % 2 % (0-0); MONOCYTES % (MANUAL) 1 % (0-11.0); NEUTROPHILS % (MANUAL) 90 (42-76)
[2018-09-02 06:09] LABS: D-DIMER 21.18 mg/L(FEU (0.17-0.50)
--- NOTE | 2018-09-02 06:19 | NUR ---
RN NOTES PATIENT REMAINED ORALLY INTUBATED. ETT AND VENT SETTING TOLERATED WELL WITHOUT SEDATION. PT IS CALM AND COOPERATIVE. AFEBRILE. AOX1 NODS FOR YES AND NO. NO SOB OR ANY RESPIRATORY DISTRESS. SINUS TACH REVEALS IN TELE MONITOR. CONTINUE WITH IV ATB CONTINUE TO MONITOR LAB VALUES . LEFT NGT ON LIS, CINTHIA DRAINED WITH SANGUINEOUS OUTPUT. COLOSTOMY AND COLECTOMY BAG INTACT. MARIA INES TLC WITH TPN @ 60 ML/HR, LEVOPHED TITRATED PROTOCOL/ORDERED AND CVP CALIBRATED WITH GOOD WAVE FORM. TURNED AND REPOSITIONED Q2H AND PRN, DRESSING CHANGES WHEN SOILED. KEPT PT CLEAN AND DRY. STILL WAITING FOR THE CLEARANCE OF DR. SARMIENTO AND MEDICAL ASSISTING INSTRUCTOR IF PT OK FOR CT SCAN OF ABDOMEN WITH CONTRAST BOTH ORAL AND IV. WILL ENDORSED CONTINUITY OF CARE TO AM NURSE.
[2018-09-02] MEDS: HYDROCORTISONE SOD SUCCINATE 100 MG/2 ML VIAL IV SCH ×3 (08:07→17:20)
[2018-09-02] MEDS: MORPHINE SULFATE INJ 4 MG/ML DISP.SYRIN IV PRN ×2 (08:07→14:41)
[2018-09-02] MEDS: HYDROGEL DRESSING 90 GM TUBE TP SCH ×2 (08:08→21:24)
[2018-09-02] MEDS: Z GUARD REMEDY 2 OZ OINT TP SCH (08:08)
[2018-09-02] MEDS: MEROPENEM 1 G in IV NS 0.9% 100 ML IV SCH ×2 (08:10→21:23)
--- NOTE | 2018-09-02 08:45 | NUR ---
ICU/RN: Dr Martinez rounds; updated on pt status. Per MD kim to use NGT for oral contrast.
--- NOTE | 2018-09-02 09:15 | NUR ---
ICU/RN: Dr Yamileth valdovinos. Updated on pt status, labs and imaging reviewed. Lower Levophed requirements noted.
--- NOTE | 2018-09-02 09:30 | NUR ---
ICU/RN: An Solitario NP at bedside; updated on pt status. Will cont to monitor pt.
[2018-09-02] MEDS ORDERED: TPN BAG #16 IV PRN ×5 (10:00)
[2018-09-02] MEDS ORDERED: TPN BAG #15 IV PRN ×7 (10:00)
--- NOTE | 2018-09-02 11:30 | NUR ---
ICU/RN: Dr Ruiz rounds; updated on pt status. Per MD, oral contrast okay, do not give IV contrast for CT ABD Pelvis ordered. Will clarify with Dr Robledo if okay to send pt to CT with oral contrast only.
--- NOTE | 2018-09-02 15:15 | NUR ---
ICU/RN: Dr Valdez at bedside; updated on pt status; labs reviewed. Informed no colostomy/fistula output; no rectal drainage, active bleeding. No new orders. Will cont to monitor pt.
[2018-09-02] MEDS ORDERED: DIATR MEGLU/DIATRIZOATE SODIUM 30 ML BOTTLE (GASTROGRAPHIN) ONE (16:11)
--- NOTE | 2018-09-02 16:30 | NUR ---
ICU/RN: Dr Robledo rounds; updated. Informed that nephrology recommends no IV contrast for the pt; however agrees with surgery, okay for PO contrast through NGT. Awaiting call back from Dr Carson regarding pulmo clearance for CT scan.
--- NOTE | 2018-09-02 17:20 | NUR ---
ICU/RN: Per Dr Carson, pt is stable for CT. Notified radiology for CT. Awaiting delivery of oral contrast for test.
--- NOTE | 2018-09-02 18:15 | NUR ---
ICU/RN: Received oral contrast from hvac residential service technician; administer 60cc [id number] x2 hours. Will administer as ordered.
--- NOTE | 2018-09-02 19:48 | NUR ---
DIVING INSTRUCTOR. INITIAL ASSESSMENT. RECEIVED THE PT REST ON THE BED. AWAKE, ALERT. VIC LEG AND VIC HAND SEVERE WEAKNESS. ORALLY INTUBATED. ETT 7.5, LIP 23CM,AC 20,TV 650,FIO2 40%. SAT 98%. NO ACUTE DISTRESS NOTED. ROUND CUTTER OPERATOR SHOWING NSR, IV RT UPPER ARM PICC LINE LEVOPHED 9MCG/MIN,TPN 60ML/H,VIC HAND WEEPING, FC PATENT. LT SIDE COLOSTOMY BAG AND FISTULA BAG INTACT, RT SIDE CINTHIA INTACT. PT IS NPO. LT NARE NGT LOW INTERMITTENT SUCTION. . NOW NGT CLAMPED. PT IS TONIGHT GOING FOR CT ABDOMEN WITH CONTRACT. EVERY 15 MIN ORAL CONTRACT THROUGH NGT 60ML. AFEBRILE. WILL CONTINUE TO MONITOR VITALS.
--- NOTE | 2018-09-02 20:15 | NUR ---
ICE CREAM MAKER. SEND THE PT TO CT SCAN WITH ACLS PROTOCOL.
--- NOTE | 2018-09-02 20:30 | NUR ---
RECEIVED THE PT FROM CT AT 2029. PT IS STABLE. NGT CONNECTED TO LOW INTERMITTENT SUCTION. WILL CONTINUE TO MONITOR.
[2018-09-02] MEDS: IV NS 0.9% 1,000 ML IV PRN (21:23)
[2018-09-02] MEDS: LEVOFLOXACIN 250 MG /D5W 50 ML 250 MG in PREMIX 1 EA IV SCH (21:23)
[2018-09-02] MEDS: NOREPINEPHRINE 16 MG in IV NS 0.9% 500 ML IV PRN (21:34)
[2018-09-02] MEDS: PANTOPRAZOLE 40 MG VIAL IV SCH (23:33)
[2018-09-03] VITALS (107 sets, daily range): BP systolic 74–117; BP diastolic 43–81
--- NOTE | 2018-09-03 03:49 | NUR ---
RECEIVED PT INTUBATED. PT TOLERATING VENT SETTINGS. SX'D FOR MOD AMT OF YELLOW SECRETIONS. ETT SECURE, CUFF CUSHION FILLER. VENT ALARMS SET AND AUDIBLE. AMBU BAG AT BEDSIDE. VENT PLUGGED INTO RED OUTLET. WILL CONTINUE TO MONITOR. Addendum: 09/03/18 at 0350 by HOLLIE BALDERAS RT Amended: Links added.
--- NOTE | 2018-09-03 03:55 | NUR ---
FLAKE MILLER WHEAT AND OATS. AM CARE. ORAL CARE, BED BATH GIVEN. LINEN CHANGED. REMAINING SAME VENT SETTING TOLERATED WELL.SAT 98%.NO ACUTE DISTRESS NOTED. COAL WASHER TENDER SHOWING NSR. IV RT UPPER ARM PICC LINE. IVF NS 100ML/H,LEVOPHED 8 MCG/MIN. TPN 60 ML/H, HOB ELEVATED. NGT LOW INTERMITTENT SUCTION. FC PATENT. COLOSTOMY BAG AND FISTULA BAG INTACT, RT CINTHIA INTACT. VIC HAND WEEPING, HOB ELEVATED. TURN AND REPOSITION Q2H. .WILL CONTINUE TO MONITOR VITALS.
[2018-09-03 05:03] LABS: BASOPHILS # (AUTO) 0.1 /CMM (0.0-0.2); BASOPHILS % (AUTO) 0.2 % (0.0-2.0); EOSINOPHILS % (AUTO) 0.1 % (0.0-6.0); HEMATOCRIT 29 % (39-51); HEMOGLOBIN 9.1 g/dL (13.5-17.5); LYMPHOCYTES # (AUTO) 0.8 /CMM (0.8-4.8); LYMPHOCYTES % (AUTO) 1.1 % (20.0-44.0); MEAN CORPUSCULAR HGB CONC 32 g/dl (31.0-36.0); MEAN CORPUSCULAR VOLUME 88 fL (80-96); MONOCYTES # (AUTO) 0.7 /CMM (0.1-1.30); NEUTROPHILS # (AUTO) 69.3 /CMM (1.8-8.9); NEUTROPHILS % (AUTO) 97.6 % (43.0-81.0); RED BLOOD CELL COUNT(AUTO) 3.25 MIL/uL (4.5-6.0)
[2018-09-03 05:25] LABS: PLATELET COUNT (AUTO) 39 /CMM (150-450)
[2018-09-03] MEDS: INSULIN REGULAR, HUMAN 100 UNIT/ML 3 ML VIAL SQ PRN ×4 (05:26→23:48)
[2018-09-03] MEDS: BLOOD SUGAR DIAGNOSTIC 1 EACH STRIP IN SCH ×4 (05:27→23:41)
[2018-09-03 05:33] LABS: CALCIUM, SERUM 7.4 mg/dL (8.5-10.1); CREATININE 1.7 mg/dL (0.6-1.3); MAGNESIUM 2.1 mg/dL (1.8-2.4); PHOSPHORUS 4.5 mg/dL (2.5-4.9); POTASSIUM 3.9 mmol/L (3.5-5.1)
[2018-09-03 06:10] LABS: BAND % (MANUAL) 8 % (0.0-5.0); LYMPHOCYTES % (MANUAL) 1 % (16-48); METAMYELOCYTES % 2 % (0-0); MONOCYTES % (MANUAL) 1 % (0-11.0); NEUTROPHILS % (MANUAL) 86 (42-76); PROMYELOCYTES % 1 % (0-0); REACTIVE LYMPHOCYTES 1 % (0-0)
--- NOTE | 2018-09-03 07:15 | NUR ---
RECEIVED REPORT ON PATIENT FROM RN JORGE. PATIENT ON LOW DOSE LEVO; SEE SPREADSHEET. PATIENT NOTED WITH CVP OF 10. AFEBRILE. NSR TELE. PATIENT IS INTUBATED 7.01/18 WITH VENT SETTINGS ORDERED AND TOLERATING WELL. PATIENT MARIA INES PICC C/D/I/P AND GOOD BLOOD RETURN NOTED.. PATIENT WITH LEFT NARE NG TUBE TO LIS WITH GREEN OUTPUT; PER RN 300ML OUTPUT LAST NIGHT. PATIENT WITH COLOSTOMY NO OUTPUT PER RN. AND MUCOUS FISTULA WITH COLOSOMY BAG INTACT NO OUTPUT PER RN. PATIENT WITH POLLOCK CATH TO GRAVITY PER REPORT PATIENT ABOUT 275ML OUTPUT. CINTHIA DRAIN NOTED TO RIGHT MID ABDOMEN WITH STICHES IN PLACE; PER RN AROUND 50 ML DARK RED OUTPUT. PATIENT GENERALIZED PITTING EDEMA AND WEEPING TO BUE. PATIENT NOTED DPOA DIONTE [phone]. SAFETY, SKIN, ASPIRATION PRECAUTIONS IN PLACE AND WILL MONITOR
--- NOTE | 2018-09-03 08:24 | NUR ---
NOTIFIED DR JOHN OF PATIENT AM LABS. NO NEW ORDERS AT THIS TIME
--- NOTE | 2018-09-03 08:58 | NUR ---
Dr. Thomposn at bedside per MD decreasing NS to 50 per hour. MD aware of BUN states possibly from steroids as creatinine remains stable. Aware urine output around 300ml per shift.
[2018-09-03] MEDS: HYDROCORTISONE SOD SUCCINATE 100 MG/2 ML VIAL IV SCH ×3 (09:47→17:04)
[2018-09-03] MEDS: MEROPENEM 1 G in IV NS 0.9% 100 ML IV SCH ×2 (09:47→22:31)
[2018-09-03] MEDS: Z GUARD REMEDY 2 OZ OINT TP SCH (09:48)
[2018-09-03] MEDS: HYDROGEL DRESSING 90 GM TUBE TP SCH ×2 (09:48→21:31)
--- NOTE | 2018-09-03 10:28 | NUR ---
JESÚS DE OLIVEIRA AWARE OF PATIENT WBC COUNT THIS AM
[2018-09-03] MEDS: IV NS 0.9% 1,000 ML IV PRN (11:49)
--- NOTE | 2018-09-03 12:00 | NUR ---
dr singer at bedside. updated on patient condition, labs, vs. per md please order abg and chest x for today.
[2018-09-03 12:26] LABS: ABG BASE EXCESS -2.3 mmol/L; ABG OXYGEN SATURATION 92.2 % (92.0-98.5); ABG PCO2 35.4 mmHg (35.0-45.0); ABG PH 7.409 (7.350-7.450); AaDO2 180.5 mmHg; COHb 0.5 % (0.5-1.5); MetHb 0.6 % (0.0-1.5); O2Hb 91.2 % (94.0-97.0); SITE, ABG Right Radial; VT, ABG 550 mL
--- NOTE | 2018-09-03 12:45 | NUR ---
mely at bedside. updated on patient condition, labs, vs. per shore working supervisor please order albumin add to am labs. no other orders
[2018-09-03] MEDS: NOREPINEPHRINE 16 MG in IV NS 0.9% 500 ML IV PRN (13:06)
--- NOTE | 2018-09-03 15:44 | NUR ---
stat thoracenthesis ordered. informed nurse Murtaza at ext. [phone] that it cannot be done today due to platelet count being too low and consent not being signed. wants platelet transfusion so that we can perform thora as soon as possible. will let testing tech know when everything suffices with policy.
[2018-09-03] MEDS ORDERED: TPN IV PRN ×8 (18:00)
[2018-09-03 18:55] LABS: D-DIMER 20.2 mg/L(FEU (0.17-0.50)
--- NOTE | 2018-09-03 19:20 | NUR ---
care endorsed to damian parada for ludy. spoke with md who is going to complete thoracentesis. per md he would like platelets to be transfusing during procedure. and per malina reed complete with 2 ffp. ivf, levo, and tpn per order; see spreadsheet. tolerating vent settings. afebrile prn cooling blanket. moore cath to gravity. colostomy and mucous fistula sites c/d/i no leaking noted. incision site covered c/d/i. ngt tp lis with -200ml gree. iv site c/d/i/p good blood return. safety, skin, aspiration precautions in place and monitored throughout day.
[2018-09-03] MEDS ORDERED: LIDOCAINE 1% INJ 50 ML MDV IJ ONE (20:00)
--- NOTE | 2018-09-03 20:30 | NUR ---
BLOW UP OPERATOR RIGHT SIDED THORACENTESIS COMPLETED AT BEDSIDE BY DR HANEY; PLATELETS AND FFP INFUSED PER ORDER; PT TOLERATED WELL. SPECIMEN SENT TO LAB.
[2018-09-03] MEDS: LEVOFLOXACIN 250 MG /D5W 50 ML 250 MG in PREMIX 1 EA IV SCH (21:30)
[2018-09-03] MEDS ORDERED: ALBUMIN 25% 100 ML IV ONE (23:09)
[2018-09-03] MEDS: PANTOPRAZOLE 40 MG VIAL IV SCH (23:12)
[2018-09-03] MEDS: ALBUMIN 25% 25 GM in PREMIX 1 EA IV SCH ×2 (23:15→23:41)
[2018-09-04] VITALS (102 sets, daily range): BP systolic 79–106; BP diastolic 46–69
--- NOTE | 2018-09-04 04:00 | NUR ---
INTELLIGENCE CONSULTANT LEVOPHED TITRATED UP TO 6 MCG/MIN AT 4 MCG/MIN SBP 80-81; TITRATED PER PROTOCOL. CONTINUE TO MONITOR.
[2018-09-04 05:33] LABS: BILIRUBIN,TOTAL 2.7 mg/dL (0.2-1.0); CALCIUM, SERUM 7.5 mg/dL (8.5-10.1); CREATININE 1.8 mg/dL (0.6-1.3); MAGNESIUM 2.1 mg/dL (1.8-2.4); PHOSPHORUS 4.8 mg/dL (2.5-4.9); POTASSIUM 3.9 mmol/L (3.5-5.1)
[2018-09-04 05:43] LABS: ALBUMIN 1.3 g/dL (3.4-5.0)
[2018-09-04] MEDS: BLOOD SUGAR DIAGNOSTIC 1 EACH STRIP IN SCH ×3 (05:50→17:48)
[2018-09-04] MEDS: INSULIN REGULAR, HUMAN 100 UNIT/ML 3 ML VIAL SQ PRN ×3 (05:52→17:54)
[2018-09-04 06:20] LABS: HEMATOCRIT 23 % (39-51); HEMOGLOBIN 7.1 g/dL (13.5-17.5); MEAN CORPUSCULAR HGB CONC 32 g/dl (31.0-36.0); MEAN CORPUSCULAR VOLUME 88 fL (80-96); RED BLOOD CELL COUNT(AUTO) 2.57 MIL/uL (4.5-6.0); WHITE BLOOD COUNT (AUTO) 61.7 K/uL (4.3-11.0)
[2018-09-04 06:21] LABS: PLATELET COUNT (AUTO) 44 /CMM (150-450)
[2018-09-04 06:26] LABS: BAND % (MANUAL) 2 % (0.0-5.0); LYMPHOCYTES % (MANUAL) 1 % (16-48); METAMYELOCYTES % 1 % (0-0); MONOCYTES % (MANUAL) 1 % (0-11.0); MYELOCYTES % 1 % (0-0); NEUTROPHILS % (MANUAL) 94 (42-76)
[2018-09-04 06:34] LABS: D-DIMER 13.7 mg/L(FEU (0.17-0.50)
--- NOTE | 2018-09-04 07:30 | NUR ---
RECEIVED REPORT ON PATIENT FROM RN IMER. PATIENT ON LOW DOSE LEVO; SEE SPREADSHEET. PATIENT NOTED WITH CVP 6. AFEBRILE. NSR TELE. PATIENT IS INTUBATED 7.01/18 WITH VENT SETTINGS ORDERED AND TOLERATING WELL. PATIENT MARIA INES PICC C/D/I/P AND GOOD BLOOD RETURN NOTED. PATIENT WITH LEFT NARE NG TUBE TO LIS WITH GREEN OUTPUT; PER RN 100ML OUTPUT LAST NIGHT. PATIENT WITH COLOSTOMY NO OUTPUT PER RN. AND MUCOUS FISTULA WITH COLOSOMY BAG INTACT WITH 150 ML OUTPUT SAME FLUID CINTHIA DRAIN. PATIENT WITH POLLOCK CATH TO GRAVITY PER REPORT PATIENT ABOUT 250 ML OUTPUT. CINTHIA DRAIN NOTED TO RIGHT MID ABDOMEN WITH STICHES IN PLACE; PER RN AROUND 80 ML DARK RED OUTPUT. PATIENT GENERALIZED PITTING EDEMA AND WEEPING TO BUE HAS DIMINISHED. PATIENT NOTED DPOA DIONTE . SAFETY, SKIN, ASPIRATION PRECAUTIONS IN PLACE AND WILL MONITOR S/P THORACENTESIS LAST NIGHT TOLERATED WELL.
--- NOTE | 2018-09-04 09:00 | NUR ---
SPOKE WITH DR ANGELES AND UPDATED ON THORACENTESIS ANALYSIS RESULTS
[2018-09-04] MEDS: Z GUARD REMEDY 2 OZ OINT TP SCH (09:23)
[2018-09-04] MEDS: HYDROCORTISONE SOD SUCCINATE 100 MG/2 ML VIAL IV SCH ×3 (09:24→16:42)
[2018-09-04] MEDS: MEROPENEM 1 G in IV NS 0.9% 100 ML IV SCH ×2 (09:24→21:50)
[2018-09-04] MEDS: HYDROGEL DRESSING 90 GM TUBE TP SCH ×2 (09:33→20:48)
[2018-09-04] MEDS: NOREPINEPHRINE 16 MG in IV NS 0.9% 500 ML IV PRN (13:05)
[2018-09-04] MEDS ORDERED: TPN BAG #18 IV PRN ×6 (15:00)
[2018-09-04] MEDS ORDERED: FEE PK DOSING 1 MIN EA MC ONE (18:13)
--- NOTE | 2018-09-04 19:03 | NUR ---
CARE ENDORSED TO DEAN WILLAMS FOR ARTURO. ALL DUE MEDS GIVEN AND ALL NEEDS ASSESSED. LEVO PER SPREADSHEET. TOLERATING TPN. ALL IV SITES C/D/I/P. S/P PICC LINE DRESSING CHANGE STERILE PROCEDURE OBSERVED. SAFETY, CARE, ASPIRATION PRECAUTIONS IN PLACE AND MONITORED THROUGHOUT DAY
--- NOTE | 2018-09-04 19:15 | NUR ---
RESIDENTIAL INSTALLER RCD PT AWAKE UNABLE TO FOLOW COMMANDS NSR ON MONITOR. INTUBATED 7.5 @ 22 W/VENT SETTINGS AC 16 550 40 %; PT HAS THICK WHITE SECRETIONS. NG TUBE TO LIS. LEVOPHED AT 8 MCG/MIN VIA MARIA INES PICC. SURGICAL INCISION NOTED TO BE PURPLE. CONTINUE TO MONITOR. ALL DRESSINGS CLEAN DRY AND INTACT.
[2018-09-04] MEDS: LEVOFLOXACIN 250 MG /D5W 50 ML 250 MG in PREMIX 1 EA IV SCH (19:40)
--- NOTE | 2018-09-04 19:53 | NUR ---
RECEIVED PT INTUBATED. PT TOLERATING VENT SETTINGS. SX'D FOR MOD AMT OF YELLOW SECRETIONS. ETT SECURE, CUFF EARLY CHILDHOOD COORDINATOR. VENT ALARMS SET AND AUDIBLE. AMBU BAG AT BEDSIDE. VENT PLUGGED INTO RED OUTLET. WILL CONTINUE TO MONITOR. Addendum: 09/04/18 at 1953 by BARRY HUDDLESTON RT Amended: Links added.
--- NOTE | 2018-09-04 20:05 | NUR ---
TELEPHONE CLERK TELEGRAPH OFFICE DR GEIGER AT BEDSIDE EVALUATING PT W/ORDER TO ADV ET TUBE BY 2CM AND REPEAT CXR; ADVANCED BY 2 CM BY RT. CONTINUE TO MONITOR.
--- NOTE | 2018-09-04 20:07 | NUR ---
ETT #7.5 ADVANCED 2 CM TO 25CM ON THE LOWER LIP Addendum: 09/04/18 at 2008 by BARRY HUDDLESTON RT Amended: Links added.
[2018-09-04] MEDS: VANCOMYCIN 1 GM in IV D5W 250 ML IV SCH (20:50)
[2018-09-04] MEDS: PANTOPRAZOLE 40 MG VIAL IV SCH (23:11)
[2018-09-05] VITALS (109 sets, daily range): BP systolic 72–113; BP diastolic 44–70
[2018-09-05] MEDS: BLOOD SUGAR DIAGNOSTIC 1 EACH STRIP IN SCH ×9 (00:18→23:07)
[2018-09-05] MEDS: INSULIN REGULAR, HUMAN 100 UNIT/ML 3 ML VIAL SQ PRN ×2 (00:21→04:46)
[2018-09-05 05:12] LABS: BASOPHILS # (AUTO) 0.1 /CMM (0.0-0.2); BASOPHILS % (AUTO) 0.2 % (0.0-2.0); EOSINOPHILS % (AUTO) 0.1 % (0.0-6.0); HEMATOCRIT 23 % (39-51); HEMOGLOBIN 7.2 g/dL (13.5-17.5); LYMPHOCYTES # (AUTO) 0.5 /CMM (0.8-4.8); LYMPHOCYTES % (AUTO) 0.6 % (20.0-44.0); MEAN CORPUSCULAR HGB CONC 31 g/dl (31.0-36.0); MEAN CORPUSCULAR VOLUME 88 fL (80-96); MONOCYTES # (AUTO) 0.7 /CMM (0.1-1.30); NEUTROPHILS # (AUTO) 72.7 /CMM (1.8-8.9); NEUTROPHILS % (AUTO) 98.1 % (43.0-81.0); RED BLOOD CELL COUNT(AUTO) 2.65 MIL/uL (4.5-6.0)
[2018-09-05 05:20] LABS: PLATELET COUNT (AUTO) 50 /CMM (150-450)
[2018-09-05 05:35] LABS: BILIRUBIN,TOTAL 2.7 mg/dL (0.2-1.0); CALCIUM, SERUM 7.6 mg/dL (8.5-10.1); CREATININE 1.9 mg/dL (0.6-1.3); MAGNESIUM 2.2 mg/dL (1.8-2.4); PHOSPHORUS 4.9 mg/dL (2.5-4.9); POTASSIUM 4.2 mmol/L (3.5-5.1); TOTAL PROTEIN, SERUM 4.1 g/dL (6.4-8.2)
[2018-09-05 05:45] LABS: MONOCYTES % (MANUAL) 2 % (0-11.0); NEUTROPHILS % (MANUAL) 98 (42-76)
--- NOTE | 2018-09-05 07:15 | NUR ---
RECEIVED PATIENT FROM DEAN WILLAMS. .01/21 ETT TOLERATING VENT SETTINGS. TELE NSR/ST. IV SITE C/D/I/P/ GOOD BLOOD RETURN. LEVO PER PROTOCOL; SEE SPREADSHEET. AND TPN PER ORDER. POLLOCK CATH DRAINING TO GRAVITY JUAN JOSÉ CARE COMPLETED; SEVERE EDEMA TO JUAN JOSÉ AREA; ELEVATING ABLE. COLOSTOMY AND MUCOUS FISTULA INTACT NO LEAKING AROUND STOMA; PER REPORT AROUND 150ML SAME COLOR JPDRAIN. CINTHIA DRAINAGE OUTPUT AROUND 40ML. PATIENT LEVO NEEDS INCREASED OVERNIGHT RUNNING AT 12MCG/MIN AT THIS TIME. INCISION SITES C/D/I. INCISION SITE CONTINUES WITH PURPLE COLOR, VERY MINIMAL DRAINAGE. NOT HOT TO TOUCH, NO PRURULENT DRAINAGE. SAFETY, SKIN, ASPIRATION PRECAUTIONS IN PLACE AND WILL MONITOR
[2018-09-05] MEDS: HYDROCORTISONE SOD SUCCINATE 100 MG/2 ML VIAL IV SCH ×3 (08:20→17:48)
[2018-09-05] MEDS: Z GUARD REMEDY 2 OZ OINT TP SCH (08:22)
[2018-09-05] MEDS: MEROPENEM 1 G in IV NS 0.9% 100 ML IV SCH ×2 (08:23→21:02)
--- NOTE | 2018-09-05 09:15 | NUR ---
DR MORENO AT BEDSIDE. UPDATED ON PATIENT CONDITION, LABS, VS.
--- NOTE | 2018-09-05 10:00 | NUR ---
DR SARMIENTO AT BEDSIDE. SHOWED MD INCISION SITE. PER MD NOT VIABLE. PATIENT NOT STABLE ENOUGH FOR ANY TYPE OF SURGERY. SPOKE WITH RN CHRONIC AND DR MOERNO. REY RAPP WILL BE CONTACTED BY DR MORENO TODAY.
[2018-09-05] MEDS: DEXTROSE 50%-WATER 50 ML DISP.SYRIN IV PRN ×2 (12:41→17:49)
--- NOTE | 2018-09-05 13:00 | NUR ---
spoke with [facility] pharmacist and notified blood sugar low. they will remove insulin from next bags
[2018-09-05] MEDS: NOREPINEPHRINE 16 MG in IV NS 0.9% 500 ML IV PRN (13:21)
[2018-09-05] MEDS ORDERED: IV NS 0.9% 500 ML BAG IV ONE (15:00)
[2018-09-05] MEDS: VANCOMYCIN 1 GM in IV D5W 250 ML IV SCH (15:19)
[2018-09-05 15:26] LABS: APPEARANCE,URINE SL CLOUDY (CLEAR); BILIRUBIN,URINE 2+ (NEGATIVE); BLOOD, URINE 3+ Ery/uL (NEGATIVE); KETONES,URINE TRACE (NEGATIVE); LEUKOCYTE ESTERASE ,URINE NEGATIVE (NEGATIVE); NITRITE, URINE NEGATIVE (NEGATIVE); PH,URINE 5.5 (5.0-8.0); PROTEIN,URINE 1+ mg/dl (NEGATIVE); UGLUCOSE NEGATIVE (NEGATIVE); UROBILINOGEN,URINE 0.2 EU/dL (0.2)
[2018-09-05 15:33] LABS: COLOR,URINE DARK YELLOW (YELLOW)
[2018-09-05 16:09] LABS: BACTERIA,URINE Rare /HPF (None Seen); RBC,URINE 21-50 /HPF (0-2); SQUAMOUS EPITHELIAL CELL,UR Rare /HPF (None Seen)
--- NOTE | 2018-09-05 17:19 | NUR ---
RT END OF THE SHIFT REPORT; PT. 68 Y OLD MALE INTUBATED ETT# 7.5@ 22 CM SECURED AT THE LIP. REMAIN STABLE. PT. TOLERATING VENT SETTINGS. SX'D FOR MOD AMT OF YELLOW SECRETIONS. EQUAL CHEST RISE NOTED. CUFF SWEETBREAD TRIMMER. VENT ALARMS SET AND AUDIBLE. AMBU BAG AT BEDSIDE. VENT PLUGGED INTO RED OUTLET. WILL CONTINUE TO MONITOR. HME CHANGED. REPORT WILL PASS TO PM SHIFT.
--- NOTE | 2018-09-05 17:25 | NUR ---
RT END OF THE SHIFT REPORT; PT. 68 Y OLD MALE INTUBATED ETT# 7.5@ 25 CM SECURED AT THE LOWER LIP. REMAIN STABLE. PT. TOLERATING VENT SETTINGS. SX'D FOR MOD AMT OF YELLOW SECRETIONS. EQUAL CHEST RISE NOTED. CUFF DIE MAKER BENCH STAMPING. VENT ALARMS SET AND AUDIBLE. AMBU BAG AT BEDSIDE. VENT PLUGGED INTO RED OUTLET. WILL CONTINUE TO MONITOR. HME CHANGED. REPORT WILL PASS TO PM SHIFT. Addendum: 09/05/18 at 1728 by MAR BRAND RT Amended: Links added.
--- NOTE | 2018-09-05 17:55 | NUR ---
notified mely of patient looking jaundice and blood sugar for the second time low. per acid concentrator please check blood sugar q1h. ok to continue tpn without insulin.
--- NOTE | 2018-09-05 19:42 | NUR ---
CARE ENDORSED TO RN FOR ARTURO. ALL DUE MEDS GIVEN AND ALL NEEDS MET. PATIENT CONTINUES ON LEVO; SEE SPREADSHEET. TPN PER ORDER. ALL DRESSINGS C/D/I. IV SITE C/D/I/P. ETT NO CHANGE. TOLERATING VENT SETTINGS WELL. SAFETY, SKIN, ASPIRATION PRECAUTIONS IN PLACE AND MONITORED THROUGHOUT DAY
[2018-09-05] MEDS: LEVOFLOXACIN 250 MG /D5W 50 ML 250 MG in PREMIX 1 EA IV SCH (19:57)
[2018-09-05] MEDS ORDERED: TPN BAG #19 IV PRN ×6 (20:00)
--- NOTE | 2018-09-05 20:00 | NUR ---
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 TELE NSR/ST. IV SITE C/D/I/P/ GOOD BLOOD RETURN. LEVO PER PROTOCOL; SEE SPREADSHEET. AND TPN PER ORDER. POLLOCK CATH DRAINING TO GRAVITY JUAN JOSÉ CARE COMPLETED; SEVERE EDEMA TO JUAN JOSÉ AREA; ELEVATING ABLE. COLOSTOMY AND MUCOUS FISTULA INTACT NO LEAKING AROUND STOMA; LEVO NEEDS INCREASED OVERNIGHT RUNNING AT 12MCG/MIN AT THIS TIME. INCISION SITES C/D/I. INCISION SITE CONTINUES WITH PURPLE COLOR, VERY MINIMAL DRAINAGE. NOT HOT TO TOUCH, NO PRURULENT DRAINAGE. SAFETY, SKIN, ASPIRATION PRECAUTIONS IN PLACE AND WILL MONITOR
[2018-09-05] MEDS: PANTOPRAZOLE 40 MG VIAL IV SCH (22:55)
[2018-09-06] VITALS (99 sets, daily range): BP systolic 75–107; BP diastolic 49–67
[2018-09-06] MEDS: BLOOD SUGAR DIAGNOSTIC 1 EACH STRIP IN SCH ×6 (00:07→18:37)
[2018-09-06 04:55] LABS: CALCIUM, SERUM 7.1 mg/dL (8.5-10.1); CREATININE 1.8 mg/dL (0.6-1.3); POTASSIUM 4.4 mmol/L (3.5-5.1)
[2018-09-06 05:27] LABS: BASOPHILS # (AUTO) 0.2 /CMM (0.0-0.2); BASOPHILS % (AUTO) 0.2 % (0.0-2.0); HEMATOCRIT 25 % (39-51); HEMOGLOBIN 7.6 g/dL (13.5-17.5); LYMPHOCYTES # (AUTO) 0.4 /CMM (0.8-4.8); LYMPHOCYTES % (AUTO) 0.5 % (20.0-44.0); MEAN CORPUSCULAR HGB CONC 31 g/dl (31.0-36.0); MEAN CORPUSCULAR VOLUME 87 fL (80-96); MONOCYTES # (AUTO) 0.6 /CMM (0.1-1.30); MONOCYTES % (AUTO) 0.7 % (2.0-12.0); NEUTROPHILS # (AUTO) 84.3 /CMM (1.8-8.9); NEUTROPHILS % (AUTO) 98.6 % (43.0-81.0); PLATELET COUNT (AUTO) 55 /CMM (150-450); RED BLOOD CELL COUNT(AUTO) 2.81 MIL/uL (4.5-6.0)
[2018-09-06 05:29] LABS: WHITE BLOOD COUNT (AUTO) 85.5 K/uL (4.3-11.0)
[2018-09-06 05:48] LABS: MONOCYTES % (MANUAL) 1 % (0-11.0); NEUTROPHILS % (MANUAL) 99 (42-76)
[2018-09-06] MEDS: INSULIN REGULAR, HUMAN 100 UNIT/ML 3 ML VIAL SQ PRN ×3 (06:42→18:39)
[2018-09-06] MEDS: NOREPINEPHRINE 16 MG in IV NS 0.9% 500 ML IV PRN ×2 (06:52→17:26)
--- NOTE | 2018-09-06 07:49 | NUR ---
RT PATIENT REC'D ORALLY INTUBATED ON [facility] VENT WITH ORDERED SETTINGS. ALARMS CHECKED + AUDIBLE. PATIENT SUCTIONED WITH SMALL AMT OF PALE SEMITHICK SECRETIONS. AMBU BAG AT HOB Addendum: 09/06/18 at 1048 by CHARU ZAMBRANO RT Amended: Links added.
[2018-09-06] MEDS: VANCOMYCIN 1 GM in IV D5W 250 ML IV SCH (08:04)
[2018-09-06] MEDS: Z GUARD REMEDY 2 OZ OINT TP SCH (09:14)
[2018-09-06] MEDS: MEROPENEM 1 G in IV NS 0.9% 100 ML IV SCH ×2 (09:15→21:22)
[2018-09-06] MEDS: HYDROCORTISONE SOD SUCCINATE 100 MG/2 ML VIAL IV SCH ×2 (09:15→17:08)
[2018-09-06 10:29] LABS: PHOSPHORUS 6.1 mg/dL (2.5-4.9)
[2018-09-06] MEDS ORDERED: TPN BAG #20 IV PRN ×5 (12:00)
[2018-09-06] MEDS ORDERED: TPN BAG #21 IV PRN ×6 (13:00)
[2018-09-06] MEDS: LEVOFLOXACIN 750 MG /D5W 150ML 750 MG in PREMIX 1 EA IV SCH (17:08)
--- NOTE | 2018-09-06 19:00 | NUR ---
FORGING ENGINEER NOTES RECEIVED PATIENT ORALLY INTUBATED ON AC MODE.PT. IS DNR.BUT AWAKE,GRIMACES ,RESPONDS TO NAME CALL/VERBAL STIMULI BUT DOES NOT FOLLOW COMMANDS.GENERALIZED EDEMA ( EXTREMELY EDEMATOUS),WEEPING ALL OVER BOTH ARMS AND THIGHS. PICC LINE VIA MARIA INES WITH LEVOPHED DRIP FOR BP SUPPORT AND TPN. NGT TO LIWS WITH GREENISH DRAINAGE. COLOSTOMY LLQ WITH LIQUIDY BROWNISH DRAINAGE AND FISTULA DRAIN ALSO LLQ. MID ABDOMINAL INCISION WITH STAPLE SUTURES ,NOTED PURPLISH DISCOLORATION AROUND INCISION SITE. CINTHIA DRAIN ON LLQ TO BULB SUCTION WITH LIGHT RED TO PINKISH DRAINAGE.COMFORT CARE DONE.
[2018-09-06 21:38] LABS: D-DIMER 19.7 mg/L(FEU (0.17-0.50)
[2018-09-06] MEDS: PANTOPRAZOLE 40 MG VIAL IV SCH (23:01)
[2018-09-07] VITALS (90 sets, daily range): BP systolic 80–108; BP diastolic 46–69
--- NOTE | 2018-09-07 | NUR ---
IMITATION MARBLE MECHANIC NOTES STATUS UNCHANGED,REMAINS RESPONSIVE,GRIMACES TO PAIN,OPENS EYES SPONTANEOUSLY BUT DOES NOT FOLLOW COMMANDS.STILL ON LEVOPHED DRIP,BP VERY SENSIIVE TO TITRATION EVEN JUST BY 1 MCG/MIN. COMFORT CARE DONE.NEEDS ATTENDED.
[2018-09-07] MEDS: INSULIN REGULAR, HUMAN 100 UNIT/ML 3 ML VIAL SQ PRN ×5 (00:51→23:42)
[2018-09-07] MEDS: BLOOD SUGAR DIAGNOSTIC 1 EACH STRIP IN SCH ×5 (00:55→23:39)
[2018-09-07 05:17] LABS: MAGNESIUM 2.2 mg/dL (1.8-2.4); PHOSPHORUS 6.4 mg/dL (2.5-4.9); POTASSIUM 4.5 mmol/L (3.5-5.1)
[2018-09-07 06:22] LABS: D-DIMER 19.35 mg/L(FEU (0.17-0.50)
--- NOTE | 2018-09-07 07:00 | NUR ---
METAL REED TUNER NOTES STATUS UNCHANGED.STILL ON LEVOPHED DRIP FOR BP SUPPORT.STILL ON AC MODE. cOLOSTOMY [id number] BROWNISH TO LAUREN COLOR ,NGT= 150 DARK GREENISH,CINTHIA DRAIN=80 ML,BLOODY,FISTULA DRAIN=20 ML.
[2018-09-07] MEDS: NOREPINEPHRINE 16 MG in IV NS 0.9% 500 ML IV PRN ×2 (07:51→19:35)
[2018-09-07] MEDS: VANCOMYCIN 1 GM in IV D5W 250 ML IV SCH (07:53)
--- NOTE | 2018-09-07 07:58 | NUR ---
RT PATIENT REC'D ORALLY INTUBATED ON [facility] VENT WITH ORDERED SETTINGS. ALARMS CHECKED + AUDIBLE. PATIENT SUCTIONED WITH SMALL AMT OF PALE SEMITHICK SECRETIONS. AMBU BAG AT HOB Addendum: 09/07/18 at 0859 by CHARU ZAMBRANO RT Amended: Links added.
[2018-09-07] MEDS: MEROPENEM 1 G in IV NS 0.9% 100 ML IV SCH ×2 (09:49→21:29)
[2018-09-07] MEDS: Z GUARD REMEDY 2 OZ OINT TP SCH (09:50)
[2018-09-07] MEDS: HYDROCORTISONE SOD SUCCINATE 100 MG/2 ML VIAL IV SCH ×2 (09:50→17:27)
[2018-09-07 10:56] LABS: BASOPHILS # (AUTO) 0.1 /CMM (0.0-0.2); BASOPHILS % (AUTO) 0.2 % (0.0-2.0); EOSINOPHILS % (AUTO) 0.1 % (0.0-6.0); HEMATOCRIT 22 % (39-51); LYMPHOCYTES # (AUTO) 0.4 /CMM (0.8-4.8); LYMPHOCYTES % (AUTO) 0.5 % (20.0-44.0); MEAN CORPUSCULAR HGB CONC 30 g/dl (31.0-36.0); MEAN CORPUSCULAR VOLUME 90 fL (80-96); MONOCYTES # (AUTO) 0.1 /CMM (0.1-1.30); MONOCYTES % (AUTO) 0.1 % (2.0-12.0); NEUTROPHILS # (AUTO) 75.4 /CMM (1.8-8.9); NEUTROPHILS % (AUTO) 99.1 % (43.0-81.0); PLATELET COUNT (AUTO) 63 /CMM (150-450); RED BLOOD CELL COUNT(AUTO) 2.49 MIL/uL (4.5-6.0)
--- NOTE | 2018-09-07 11:00 | NUR ---
DIONTE PAMELLA'S COUSIN IS HERE. UPDATED ON PT PROGRESS, EDU REGARDING COMFORT CARE PROVIDED EMOTIONAL SUPPORT PROVIDED. MORE FAMILY MEMBERS ARE EXPECTED TO COME THIS WEAKENED.
[2018-09-07 11:06] LABS: WHITE BLOOD COUNT (AUTO) 76.1 K/uL (4.3-11.0)
[2018-09-07 11:07] LABS: HEMOGLOBIN 6.8 g/dL (13.5-17.5)
[2018-09-07 11:21] LABS: BAND % (MANUAL) 3 % (0.0-5.0); METAMYELOCYTES % 1 % (0-0); MONOCYTES % (MANUAL) 1 % (0-11.0); NEUTROPHILS % (MANUAL) 95 (42-76)
--- NOTE | 2018-09-07 11:30 | NUR ---
DR SANTIAGO NOTIFIED HH 6.04/20. NO ORDERS AT THIS TIME SINCE FAMILY CONSIDERS COMFORT CARE.
--- NOTE | 2018-09-07 13:30 | NUR ---
DR SANTIAGO CALLED BACK. NEW ORDER FOR [facility] IN [facility] PER HER ORDER.
[2018-09-07] MEDS ORDERED: TPN IV PRN ×4 (15:00)
[2018-09-07] MEDS: MORPHINE SULFATE INJ 4 MG/ML DISP.SYRIN IV PRN ×2 (15:55→21:29)
--- NOTE | 2018-09-07 19:30 | NUR ---
DIE CAST DIE MAKER: RECEIVED ORALLY INTUBATED WT VENT SETTINGS ORDERED. OPENS EYES AND TRACKS BUT UNABLE TO FOLLOW SIMPLE COMMANDS. NO ACUTE DISTRESS, NO EVIDENCE OF DISCOMFORT. SR ON CINDER CREW WORKER. MARGARETH HUGGER IN PLACE FOR HYPOTHERMIA. GEN. EDEMA WT WEEPING NOTED. LT/ NGT TO LIS WT GREEN GASTRIC SECRETIONS FROM PREVIOUS SHIFT. MARIA INES PICC INFUSING LEVOPHED AT 15MCG/MIN AND TPN AT 60ML/HR WT NO S/S OF COMPLICATIONS. ABDOMINAL SURGICAL SITE DRESSING DRY, CLEAN AND INTACT WT NO ACTIVE BLEEDING. RT. ABDOMINAL CINTHIA DRAIN WT SANGUINOUS DRAINAGE. LT. ABDOMINAL COLOSTOMY NOTED WT BLOODY LIQUID STOOLS AND SMALL AMT. OF DARK BROWN DRAINAGE FROM MUCOUS FISTULA. F/C PATENT AND INTACT WT VERY LOW SONIA COLORED URINE OUTPUT. SAFETY PRECAUTION NOTED. WILL CONTINUE TO MONITOR.
--- NOTE | 2018-09-07 19:45 | NUR ---
MERCHANDISER: ON S/P 1 UNIT PRBC WT NO ADVERSE SIDE EFFECTS. WILL CONTINUE TO MONITOR.
--- NOTE | 2018-09-07 20:01 | NUR ---
PT RCVD ORALLY INTUBATED VIA ETT #7.5, 25CM @ THE LIP ON THE VENT WITH NOTED SETTINGS, AC 16,550,40% PEEP 0. BILATERAL B/S HEARD ON AUSCULTATION. PT OPEN EYES AND TRACK, UNABLE TO FOLLOW COMMANDS. SUCTIONED SMALL PALE YELLOW SECRETIONS. NO RESPIRATORY DISTRESS NOTED AT THIS TIME. ALARMS ARE SET AND AUDIBLE, VENT PLUGGED INTO RED OUTLET. AMBU BAG BEDSIDE. WILL CONTINUE TO MONITOR CLOSELY
[2018-09-07] MEDS: PANTOPRAZOLE 40 MG VIAL IV SCH (23:11)
[2018-09-08] VITALS (108 sets, daily range): BP systolic 84–103; BP diastolic 45–70
[2018-09-08 04:43] LABS: BASOPHILS # (AUTO) 0.1 /CMM (0.0-0.2); BASOPHILS % (AUTO) 0.2 % (0.0-2.0); HEMATOCRIT 25 % (39-51); HEMOGLOBIN 7.7 g/dL (13.5-17.5); LYMPHOCYTES # (AUTO) 0.4 /CMM (0.8-4.8); LYMPHOCYTES % (AUTO) 0.5 % (20.0-44.0); MEAN CORPUSCULAR HGB CONC 31 g/dl (31.0-36.0); MEAN CORPUSCULAR VOLUME 90 fL (80-96); MONOCYTES # (AUTO) 0.6 /CMM (0.1-1.30); MONOCYTES % (AUTO) 0.8 % (2.0-12.0); NEUTROPHILS # (AUTO) 73.4 /CMM (1.8-8.9); NEUTROPHILS % (AUTO) 98.5 % (43.0-81.0); RED BLOOD CELL COUNT(AUTO) 2.71 MIL/uL (4.5-6.0)
[2018-09-08 04:56] LABS: WHITE BLOOD COUNT (AUTO) 74.5 K/uL (4.3-11.0)
[2018-09-08 04:57] LABS: PLATELET COUNT (AUTO) 45 /CMM (150-450)
[2018-09-08 05:09] LABS: BAND % (MANUAL) 1 % (0.0-5.0); MONOCYTES % (MANUAL) 3 % (0-11.0); NEUTROPHILS % (MANUAL) 96 (42-76)
[2018-09-08 05:24] LABS: CREATININE 2.2 mg/dL (0.6-1.3); MAGNESIUM 2.1 mg/dL (1.8-2.4); PHOSPHORUS 6.9 mg/dL (2.5-4.9); POTASSIUM 4.7 mmol/L (3.5-5.1)
[2018-09-08 05:37] LABS: D-DIMER 16.32 mg/L(FEU (0.17-0.50)
[2018-09-08] MEDS: BLOOD SUGAR DIAGNOSTIC 1 EACH STRIP IN SCH ×4 (05:52→23:55)
[2018-09-08] MEDS: INSULIN REGULAR, HUMAN 100 UNIT/ML 3 ML VIAL SQ PRN ×4 (05:57→23:55)
--- NOTE | 2018-09-08 06:45 | NUR ---
POLL CLERK: RECEIVED RESULTS OF WBC=74.5 FROM 76.1, PLT=45 FROM 63. PT HAS THROMBOCYTOPENIA AND HAS LOWER PLATELET COUNT SINCE ADMISSION. COLOSTOMY STILL NOTED WT BLOODY LIQUID STOOLS. NO SIGNIFICANT ARTURO DURING THE SHIFT. STILL ON LEVOPHED AT 17MCG/MIN. AWAITING FOR MD TO CALL BACK. WILL ENDORSE TO DAY SHIFT FOR CONTINUITY OF CARE.
--- NOTE | 2018-09-08 07:15 | NUR ---
RN INITIAL NOTES: Rec'd pt awake on bed, not in any distress. On MV via ETT, sating at 99%. On telemonitor, Has NGT on L nare on low intermittent suctioning, noted bilious output from the tubing. Has 2 colostomy w/ bag intact w/ bloody output from 1st colostomy bag. Has CINTHIA drain intact, negative pressure on, noted small amount of serosanguineous output. Has MARIA INES PICC line patent & intact w/ TPN x 60 cc/hr & Levo x 17 mcg infusing well. CVP reading at 12. Has FC patent & intact draining to BSB. Safety precaution in place w/ bed locked & in lowest position. Call light w/in reach. Will continue to monitor & attend pt needs.
--- NOTE | 2018-09-08 08:08 | NUR ---
Pt seen by Dr. Bay. Per , daniel BUTTS CVP.
[2018-09-08] MEDS: MEROPENEM 1 G in IV NS 0.9% 100 ML IV SCH ×2 (08:42→21:06)
[2018-09-08] MEDS: HYDROCORTISONE SOD SUCCINATE 100 MG/2 ML VIAL IV SCH ×2 (08:43→17:26)
[2018-09-08] MEDS: Z GUARD REMEDY 2 OZ OINT TP SCH (08:44)
[2018-09-08] MEDS: VANCOMYCIN 1 GM in IV D5W 250 ML IV SCH (09:15)
--- NOTE | 2018-09-08 11:00 | NUR ---
Pt seen & examined by Dr. Martinez. ordered to remove enrike on the abdominal surgical site. Addendum: 09/08/18 at 1124 by NAEL COLEMAN RN Addendum: Noted that the abdominal incision site is red w/ some necrotizing tissue. Confirmed w/ MD if he wants the RN to remove the enrike per MD okay to remove enrike. When RN start to remove the enrike (on 10th staple) as ordered, noted that the surgical incision site started to open up. Called Dr. Martinez, rec'd call back & stated that he ordered to alternate remove the enrike. Explained to the MD that he initially ordered to remove all the enrike & not alternate, MD ordered to just leave it as it is. Addendum: 09/08/18 at 1719 by NAEL COLEMAN RN Addendum: Pt was also seen by Dr. Vargas.
[2018-09-08] MEDS: NOREPINEPHRINE 16 MG in IV NS 0.9% 500 ML IV PRN (11:50)
--- NOTE | 2018-09-08 13:30 | NUR ---
Rec'd call from REY Magana & stated that pt's sister will come tomorrow in PM. Dr. Carson made aware.
[2018-09-08] MEDS ORDERED: TPN BAG #23 IV PRN ×6 (15:00)
[2018-09-08] MEDS: LEVOFLOXACIN 750 MG /D5W 150ML 750 MG in PREMIX 1 EA IV SCH (16:18)
--- NOTE | 2018-09-08 18:00 | NUR ---
Pt was seen & examined by Dr. Robledo & updated about pt condition.
--- NOTE | 2018-09-08 18:15 | NUR ---
Pt was seen by NP. Maris
--- NOTE | 2018-09-08 18:44 | NUR ---
RN CLOSING NOTES: Pt is not on any distress. On MV via ETT, sating at 100%. On telemonitor, ST. NGT on L nare still on low intermittent suctioning. 2 colostomy w/ bag kept patent & intact. CINTHIA drain kept patent & intact, negative pressure on. MARIA INES PICC line kept patent & intact w/ TPN x 60 cc/hr, Levo x 17 mcg infusing well. FC kept patent & intact draining to BSB, low UOP. Kept well rested. Needs attended. Bed kept low & in locked pos. Call light w/in reach. Will endorse to PM RN for ARTURO.
--- NOTE | 2018-09-08 19:16 | NUR ---
PT RCVD ORALLY INTUBATED VIA ETT #7.5, 25CM @ THE LIP ON THE VENT WITH NOTED SETTINGS, AC 16,550,40% PEEP 0. BILATERAL B/S HEARD ON AUSCULTATION. PT OPEN EYES AND TRACK, UNABLE TO FOLLOW COMMANDS. SUCTIONED MODERATE AMOUNT OF YELLOW THICK SECRETIONS. NO RESPIRATORY DISTRESS NOTED AT THIS TIME. ALARMS ARE SET AND AUDIBLE, VENT PLUGGED INTO RED OUTLET. AMBU BAG BEDSIDE. WILL CONTINUE TO MONITOR CLOSELY
[2018-09-08] MEDS: PANTOPRAZOLE 40 MG VIAL IV SCH (23:04)
[2018-09-09] VITALS (55 sets, daily range): BP systolic 55–114; BP diastolic 28–65
[2018-09-09] MEDS: NOREPINEPHRINE 16 MG in IV NS 0.9% 500 ML IV PRN ×2 (01:59→16:18)
[2018-09-09 05:05] LABS: CALCIUM, SERUM 7.1 mg/dL (8.5-10.1); CREATININE 2.3 mg/dL (0.6-1.3); MAGNESIUM 2.2 mg/dL (1.8-2.4); PHOSPHORUS 7.3 mg/dL (2.5-4.9); POTASSIUM 4.8 mmol/L (3.5-5.1)
[2018-09-09] MEDS ORDERED: TPN IV PRN ×4 (06:00)
[2018-09-09] MEDS: BLOOD SUGAR DIAGNOSTIC 1 EACH STRIP IN SCH ×3 (06:09→16:26)
[2018-09-09] MEDS: INSULIN REGULAR, HUMAN 100 UNIT/ML 3 ML VIAL SQ PRN ×2 (06:11→11:22)
[2018-09-09 06:12] LABS: D-DIMER 15.6 mg/L(FEU (0.17-0.50)
[2018-09-09] MEDS ORDERED: VANCOMYCIN 0.75 GM in IV D5W 250 ML IV SCH (08:00)
[2018-09-09] MEDS ORDERED: TPN BAG #24 IV PRN ×5 (08:44)
[2018-09-09] MEDS ORDERED: TPN BAG #25 IV PRN ×7 (09:00)
[2018-09-09] MEDS: MEROPENEM 1 G in IV NS 0.9% 100 ML IV SCH (09:30)
[2018-09-09] MEDS: MORPHINE SULFATE INJ 4 MG/ML DISP.SYRIN IV PRN (09:31)
[2018-09-09] MEDS: HYDROCORTISONE SOD SUCCINATE 100 MG/2 ML VIAL IV SCH ×2 (09:31→16:25)
[2018-09-09] MEDS: Z GUARD REMEDY 2 OZ OINT TP SCH (09:31)
--- NOTE | 2018-09-09 09:31 | NUR ---
RT PT RECEIVED ORALLY INTUBATED WITH A 7.5 ETT SECURED AT 26CM AT THE LIP LINE, PT IS ON THE VENT WITH NOTED SETTINGS. PT IS AWAKE AND RESPONDS TO STIMULI WHEN SX'D. VENT ALARMS ARE SET AND AUDIBLE WITH BVM BY BEDSIDE. SHOWCASE MAKER CUFF PRESSURE NOTED. VENT IS PLUGGED INTO RED OUTLET. SX'D SMALL THIN PALE YELLOW SECRETIONS. NO RESPIRATORY DISTRESS NOTED AT THIS TIME, WILL CONTINUE TO MONITOR. Addendum: 09/09/18 at 1458 by FEDERICO MUNGUIA RT Amended: Links added.
--- NOTE | 2018-09-09 13:30 | NUR ---
ICU/RN: Dr Vargas at bedside; updated on pt status. Assessed abd wounds, drains with MD. Informed that family wishes to continue present care until arrival of pt's sister later this afternoon. Per MD, okay to extubate, initiate comfort care measures upon arrival of family.
--- NOTE | 2018-09-09 16:00 | NUR ---
ICU/RN: Family at bedside, supportive care rendered to pt and family. Awaiting family friend who is a loom starter prior to initiation of comfort care and terminal extubation. Refusing nursing interventions and meds except for Levophed until arrival of friend.
[2018-09-09] MEDS ORDERED: MORPHINE SULFATE PF DRIP 250 MG in IV D5W 240 ML IV PRN (18:00)
[2018-09-09] MEDS ORDERED: DC PROPOFOL WHEN EXTUBATED XX PRN (18:00)
[2018-09-09] MEDS ORDERED: HYDROMORPHONE 1 MG/1 ML DISP.SYRIN IV ONE (18:30)
--- NOTE | 2018-09-09 18:40 | NUR ---
ICU/RN: Terminally extubated, comfort care measures only. Placed on 2L/min via NC. NGT out. No facial grimacing or discomfort noted.
--- NOTE | 2018-09-09 20:07 | NUR ---
ICU/HYDROELECTRIC PLANT ELECTRICAL ENGINEER FAMILY AT BEDSIDE. TERMINAL EXTUBATION WAS DONE. PLACE ON MORPHINE. SUPPORTIVE CARE IN PLACE FOR BOTH FAMILY AND PT.
--- NOTE | 2018-09-09 20:15 | NUR ---
ICU/ELECTROCARDIOGRAPH OPERATOR PT AT 2010, WAS PRONOUNCED BY CHARGE NURSE. FAMILY AT BEDSIDE.
--- NOTE | 2018-09-09 20:53 | NUR ---
ICU/ROUGHER OPERATOR FAMILY SIGNED AND RELEASED BODY, PERSONAL EFFECTS GIVEN TO FAMILY MEMBER DIONTE. ALL PAPERWORK ASSOCIATED WITH WITH PT'S WERE FILLED OUT.
--- NOTE | 2018-09-09 21:00 | NUR ---
ICU/RECORDS TECH [employer] WAS CALLED AND GAVE A .
--- NOTE | 2018-09-09 21:12 | NUR ---
ICU/ENGINEERING TECHNOLOGY INSTRUCTOR [employer] [place] WAS CALLED TO MEDIA MANAGER BODY, BOYD JIMENEZ SAID THAT WITHIN 2-3 HOURS THE BODY WILL BE PICKED UP FOR CREMATION. POST MORTEM CARE WAS DONE.
--- NOTE | 2018-09-09 21:14 | NUR ---
ICU/WELDER TACK BLUEPRINT DEVELOPER NURSE WAITED MORPHINE PROGRESSIVE CARE UNIT REGISTERED NURSE WITH JORGE MORAN.
--- NOTE | 2018-09-09 21:45 | NUR ---
ICU/HEALTH UNIT SUPERVISOR [employer] GAVE SECOND REFERRAL # OF [id number]
--- NOTE | 2018-09-10 00:09 | NUR ---
ICU/TECHNICAL SOURCING RECRUITER [employer]UARY IS HERE TO CLERICAL PRODUCTION WORKER BODY, ALL PAPER WORK SIGNED AND CHART BROKEN DOWN.
== END 2018-09-09 20:11 | disposition expired | DRG 853 ==
LOC: ER 16:34 → TELE 19:55 → ICU 20:43
PROVIDERS: ADMIT Internal Medicine; ATTEND Student in an Organized Health Care Education/Training Program
PROC: 0D1N0Z4 Bypass Sigmoid Colon to Cutaneous, Open Approach (ICD-10-PCS; principal; 2018-08-16)
PROC: 5A1955Z Respiratory Ventilation, Greater than 96 Consecutive Hours (ICD-10-PCS; 2018-08-16)
PROC: 30233K1 Transfusion of Nonautologous Frozen Plasma into Peripheral Vein, Percutaneous Approach (ICD-10-PCS; 2018-08-16)
PROC: 30233N1 Transfusion of Nonautologous Red Blood Cells into Peripheral Vein, Percutaneous Approach (ICD-10-PCS; 2018-08-16)
PROC: 30233R1 Transfusion of Nonautologous Platelets into Peripheral Vein, Percutaneous Approach (ICD-10-PCS; 2018-08-16)
PROC: 0JHF3WZ Insertion of Totally Implantable Vascular Access Device into Left Upper Arm Subcutaneous Tissue and Fascia, Percutaneous Approach (ICD-10-PCS; 2018-08-16)
PROC: 05H633Z Insertion of Infusion Device into Left Subclavian Vein, Percutaneous Approach (ICD-10-PCS; 2018-08-16)
PROC: B547ZZA Ultrasonography of Left Subclavian Vein, Guidance (ICD-10-PCS; 2018-08-16)
PROC: 02HV33Z Insertion of Infusion Device into Superior Vena Cava, Percutaneous Approach (ICD-10-PCS; 2018-08-25)
PROC: B548ZZA Ultrasonography of Superior Vena Cava, Guidance (ICD-10-PCS; 2018-08-25)
PROC: 0W993ZZ Drainage of Right Pleural Cavity, Percutaneous Approach (ICD-10-PCS; 2018-09-06)
DX: A41.59 Other Gram-negative sepsis (principal); Z66 Do not resuscitate; Z51.5 Encounter for palliative care; R65.21 Severe sepsis with septic shock; K63.1 Perforation of intestine (nontraumatic); J96.01 Acute respiratory failure with hypoxia; N17.0 Acute kidney failure with tubular necrosis; E43 Unspecified severe protein-calorie malnutrition; J96.02 Acute respiratory failure with hypercapnia; K65.9 Peritonitis, unspecified; D65 Disseminated intravascular coagulation [defibrination syndrome]; J15.6 Pneumonia due to other Gram-negative bacteria; J85.0 Gangrene and necrosis of lung; C19 Malignant neoplasm of rectosigmoid junction; E44.0 Moderate protein-calorie malnutrition; C20 Malignant neoplasm of rectum; C79.51 Secondary malignant neoplasm of bone; E87.2 Acidosis; D62 Acute posthemorrhagic anemia; G93.40 Encephalopathy, unspecified; E87.1 Hypo-osmolality and hyponatremia; K59.39 Other megacolon; R18.8 Other ascites; J90 Pleural effusion, not elsewhere classified; J98.11 Atelectasis; Y92.9 Unspecified place or not applicable; E83.51 Hypocalcemia; Z98.890 Other specified postprocedural states; D50.9 Iron deficiency anemia, unspecified; D63.8 Anemia in other chronic diseases classified elsewhere; E87.5 Hyperkalemia; E83.39 Other disorders of phosphorus metabolism; K66.8 Other specified disorders of peritoneum; K76.0 Fatty (change of) liver, not elsewhere classified; N50.89 Other specified disorders of the male genital organs; E16.2 Hypoglycemia, unspecified; E86.1 Hypovolemia; T38.0X5A Adverse effect of glucocorticoids and synthetic analogues, initial encounter; B96.1 Klebsiella pneumoniae [K. pneumoniae] as the cause of diseases classified elsewhere
CPT/HCPCS: 31720; 36415; 36569; 36600; 70450-TC; 71045-TC; 71250-TC; 76942-TC; 80048-TC; 80053-TC; 80076-TC; 80202-TC; 81000-TC; 82040-TC; 82378; 82533; 82728-TC; 82803-TC; 82962-TC; 83540-TC; 83605-TC; 83735-TC; 83935-TC; 84100-TC; 84300-TC; 84443-TC; 84478-TC; 84484-TC; 85025-TC; 85027-TC; 85385-TC; 85396; 85730-TC; 86850-TC; 86921-TC; 87040-TC; 87070-TC; 87075-TC; 87081-TC; 87086-TC; 87186-TC; 89051-TC; 93307-TC; 94003-TC; 94640-TC; 94760-TC; 99082-TC; A4216; A4362; A6248; A6253; A6402; A6403; C1751; C9113; G0378; J0330; J0610; J0690; J1170; J1200; J1720; J1815; J1940; J1956; J2185; J2248; J2270; J2274; J2370; J2543; J3370; J3430; J3475; J3480; J3490; J7030; J7040; J7042; J7050; J7060; J7070; P9016-BL; P9017-BL; P9034-BL; P9045; P9047; Q9963